=== PATIENT | male | born 1945 | race Caucasian/White ===

== ENCOUNTER 2016-09-26 13:14 | Inpatient (IN) ==
--- NOTE | 2016-09-26 13:36 | Emergency Department Note ---
Disposition Clinical Impression: Cancer associated pain, Altered mental status Disposition: Admitted As Inpatient Condition: Fair Altered Mental Status HPI - General Chief Complaint: ED Altered Mental Status Stated Complaint: AMS Time Seen by Provider: 09/26/16 13:35 Source: patient, EMS Limitations: altered mental status Nursing Notes Reviewed: Yes Vital Signs Reviewed: Yes - History of Present Illness HPI Narrative: Patient presents to the ED from the cancer center. Patient has a history of lung cancer that was metastatic to his right arm. It was diagnosed in June of this year. He has received weekly chemotherapy on since then. He is followed by oncology here. States that the pain started in his right forearm for several months before June. He eventually had a biopsy and was found to have lung cancer. Since receiving chemotherapy. They said that his disease is relatively stable. He is presenting now for 2 weeks of increasing weakness, which they believe is due to polypharmacy, but was also sent over to be admitted for pain control. The disruptive lesion and his right arm has caused a several pathologic fractures. He has significant pain and swelling and arm that is about his baseline. He has seen a surgeon at [facility], and they do plan on amputating the arm in the upcoming months. He has had some altered mental status, but this is not acute and has been ongoing last several weeks. Family reports that it is due to him taking oxycodone and gabapentin. When he is off these medications. He seems much more awake and alert but is unable to tolerate the pain and then when he takes a medicine. He seems very out of it. No fevers or other concerns at this time. Patient denies any pain other than in his right arm. States he just feels very weak and tired. - Related Data Home Medications Medication Instructions Recorded Confirmed Polyethylene Glycol 3350 [MiraLAX 1 scoop PO Q48H PRN 05/08/16 09/26/16 Powder Bulk 17.9 Oz] Acetaminophen [Tylenol] 325 mg PO Q4-6H PRN 09/26/16 09/26/16 Furosemide [Lasix] 20 mg PO DAILY PRN 09/26/16 09/26/16 Gabapentin [Neurontin] 800 mg PO TID 09/26/16 09/26/16 LORazepam [Ativan] 1 mg PO DAILY 09/26/16 09/26/16 Magnesium Oxide [Magnesium] 400 mg PO DAILY 09/26/16 09/26/16 Oxycodone HCl 15 mg PO Q4-6H PRN 09/26/16 09/26/16 Potassium Chloride [Klor-Con 10] 10 meq PO DAILY PRN 09/26/16 09/26/16 Sertraline [Zoloft] 50 mg PO QAM 09/26/16 09/26/16 Previous Rx's Medication Instructions Recorded Dexamethasone [Decadron] 8 mg PO AD #60 tab 05/21/16 Prochlorperazine Maleate 10 mg PO Q6HR PRN #60 tablet 05/21/16 [Compazine] Lidocaine/Prilocaine CREAM [Emla] 1 appl TP AD #1 tube 06/05/16 Calcium Carb/Vitamin D3/Vit K1 2 each PO DAILY #60 tab.chew 06/06/16 [Calcium + D Soft Chewable Tab] Allergies Allergy/AdvReac Type Severity Reaction Status Date / Time morphine AdvReac Confusion Verified 06/17/16 13:06 All systems ED: reviewed and negative except as stated. Constitutional: Reports: weakness Musculoskeletal: Reports: as per HPI Integumentary: Reports: as per HPI Neurological: Reports: as per HPI Endocrine: Reports: fatigue Past Medical History - Past Medical History Attestation: Yes The following information was validated with the patient. Source: patient, old records reviewed, obtained from family Medical history: Reports: arthritis, cancer, diabetes, hypertension, other Surgical history: Reports: cataract, other Psychiatric history: Reports: no psych history - Social History Smoking Status: Former smoker Smokeless Tobacco Status: No Alcohol use: Reports: none Drug use: Reports: none Physical Exam - General Limitations: altered mental status General appearance: alert, in no apparent distress - Head Head exam: atraumatic, normocephalic, normal inspection - Eye Eye exam: Present: normal appearance, PERRL, EOMI - ENT ENT exam: mucous membranes dry - Neck Neck exam: Absent: meningismus - Chest Chest inspection: Present: normal inspection, symmetric chest wall rise - Respiratory Respiratory exam: Present: normal lung sounds bilaterally. Absent: respiratory distress - Cardiovascular Cardiovascular exam: Present: regular rate, normal rhythm, normal heart sounds - Abdominal Exam Abdominal exam: Present: soft, Non-Tender - Extremities Exam Extremities exam: Present: other (Patient has significant edema, tenderness and swelling to the right forearm. States this is where his pathologic fracture is. No change from baseline) - Neurological Exam Neurological exam: Present: alert, oriented X3, CN II-XII intact - Psychiatric Psychiatric exam: Present: flat affect - Skin Skin exam: Present: warm, dry, intact Course Course Narrative: 70 y/o M presenting for weakness and fatigue. Labs ordered. Likely admission. As a cancer patient and was essentially sent over for admission for pain control and IV fluids Vital Signs Temperature 98.5 F 09/26/16 13:16 Pulse Rate 76 09/26/16 13:16 Respiratory Rate 22 09/26/16 13:16 Blood Pressure 107/71 09/26/16 13:16 O2 Sat by Pulse Oximetry 93 09/26/16 13:16 Temperature 98.0 F 09/26/16 19:05 Pulse Rate 81 09/26/16 19:05 Respiratory Rate 15 09/26/16 19:05 Blood Pressure 118/53 09/26/16 19:05 O2 Sat by Pulse Oximetry 98 09/26/16 19:05 Oxygen Delivery Oxygen Delivery Nasal Cannula Altered Mental Status - Medical Records Medical records reviewed: Yes I reviewed the patient's medical records. - Lab Data Lab results reviewed: Yes I reviewed the patient's lab results. Result diagrams: 09/26/16 14:04 09/26/16 14:04 Lab Results 09/26/16 09/26/16 09/26/16 Range/Units 14:04 14:04 14:04 WBC 3.7 L (4.3-11.1) K/mcL RBC 2.22 L (4.19-5.50) M/mcL Hgb 7.1 L (12.9-16.9) g/dL Hct 22.7 L (37.5-50.1) % MCV 102.3 H (83.0-100.0) fL MCH 32.0 (28.0-33.3) pg MCHC 31.3 L (31.6-35.5) g/dL RDW 19.6 H (11.5-14.5) % Plt Count 122 L (140-400) K/mcL MPV 9.7 (9.4-12.4) fL Seg Neutrophils % 83.0 % Band Neutrophils % 1.0 (0-4) % Lymphocytes % 12.0 % Monocytes % 4.0 % Neutrophils # 3.1 (1.6-8.9) K/mcL Lymphocytes # 0.4 L (0.6-4.6) K/mcL Monocytes # 0.2 (0.0-1.3) K/mcL Platelet Estimate Slight Decrease L (Normal) PT 12.8 H (9.4-12.1) Seconds INR 1.2 APTT 24.3 L (26.0-36.0) Seconds Sodium 138 (136-145) mEq/L Potassium 3.9 (3.5-4.5) mEq/L Chloride 102 (98-109) mEq/L Carbon Dioxide 30 H (19-29) mEq/L BUN 14 (8-26) mg/dL Creatinine 0.70 L (0.72-1.25) mg/dL Est GFR ( Amer) > 60 (> 60) Est GFR (Non-Af Amer) > 60 (> 60) BUN/Creatinine Ratio 20 (6-26) Glucose 78 (70-99) mg/dL Calculated Osmolality 285 (280-300) Calcium 9.2 (8.6-10.8) mg/dL Ionized Calcium (1.15-1.35) mmol/L Phosphorus (2.3-4.7) mg/dL Magnesium (1.6-2.6) mg/dL Total Bilirubin 0.6 (0.2-1.2) mg/dL Direct Bilirubin 0.3 (0.0-0.5) mg/dL Indirect Bilirubin 0.3 (0.0-1.2) mg/dL AST 15 (5-34) Units/L ALT 13 (0-55) Units/L Alkaline Phosphatase 122 (38-126) Units/L Troponin I (0-0.03) ng/mL Serum Total Protein 5.7 L (6.0-8.3) g/dL Albumin 2.1 L (3.5-5.0) g/dL Globulin 3.6 H (2.4-3.5) g/dL Albumin/Globulin Ratio 0.6 L (1.1-2.2) TSH (0.350-4.840) mcIU/mL Urine Color (Yellow) Urine Clarity (Clear) Urine pH (5.0-8.0) pH Units Ur Specific [place] (1.010-1.025) Urine Protein (Neg-Trace) mg/dL Urine Glucose (UA) (Normal) mg/dL Urine Ketones (Negative) mg/dL Urine Blood (Negative) Urine Nitrite (Negative) Urine Bilirubin (Negative) Urine Urobilinogen (Normal) mg/dL Ur Leukocyte Esterase (Negative) Ur Culture Indicated? (NO) 09/26/16 09/26/16 09/26/16 Range/Units 14:04 14:04 15:19 WBC (4.3-11.1) K/mcL RBC (4.19-5.50) M/mcL Hgb (12.9-16.9) g/dL Hct (37.5-50.1) % MCV (83.0-100.0) fL MCH (28.0-33.3) pg MCHC (31.6-35.5) g/dL RDW (11.5-14.5) % Plt Count (140-400) K/mcL MPV (9.4-12.4) fL Seg Neutrophils % % Band Neutrophils % (0-4) % Lymphocytes % % Monocytes % % Neutrophils # (1.6-8.9) K/mcL Lymphocytes # (0.6-4.6) K/mcL Monocytes # (0.0-1.3) K/mcL Platelet Estimate (Normal) PT (9.4-12.1) Seconds INR APTT (26.0-36.0) Seconds Sodium (136-145) mEq/L Potassium (3.5-4.5) mEq/L Chloride (98-109) mEq/L Carbon Dioxide (19-29) mEq/L BUN (8-26) mg/dL Creatinine (0.72-1.25) mg/dL Est GFR ( Amer) (> 60) Est GFR (Non-Af Amer) (> 60) BUN/Creatinine Ratio (6-26) Glucose (70-99) mg/dL Calculated Osmolality (280-300) Calcium (8.6-10.8) mg/dL Ionized Calcium 1.29 (1.15-1.35) mmol/L Phosphorus 3.2 (2.3-4.7) mg/dL Magnesium 1.7 (1.6-2.6) mg/dL Total Bilirubin (0.2-1.2) mg/dL Direct Bilirubin (0.0-0.5) mg/dL Indirect Bilirubin (0.0-1.2) mg/dL AST (5-34) Units/L ALT (0-55) Units/L Alkaline Phosphatase (38-126) Units/L Troponin I 0.01 (0-0.03) ng/mL Serum Total Protein (6.0-8.3) g/dL Albumin (3.5-5.0) g/dL Globulin (2.4-3.5) g/dL Albumin/Globulin Ratio (1.1-2.2) TSH 1.773 (0.350-4.840) mcIU/mL Urine Color Yellow (Yellow) Urine Clarity Clear (Clear) Urine pH 7.5 (5.0-8.0) pH Units Ur Specific [place] 1.018 (1.010-1.025) Urine Protein Negative (Neg-Trace) mg/dL Urine Glucose (UA) Normal (Normal) mg/dL Urine Ketones Negative (Negative) mg/dL Urine Blood Negative (Negative) Urine Nitrite Negative (Negative) Urine Bilirubin Negative (Negative) Urine Urobilinogen Normal (Normal) mg/dL Ur Leukocyte Esterase Negative (Negative) Ur Culture Indicated? NO (NO) - Radiology Data Radiology results reviewed: Yes I reviewed the patient's radiology results. - EKG Data EKG attestation: Yes I reviewed and interpreted this EKG. EKG results narrative: Sinus rhythm, rate 73, PA interval 136, QRS 93, QTc 388, normal axis, no acute ischemic changes TPA Checklist - LKW: 3-4.5 hrs Add. Contraindications Patient/family understanding: The patient/family members have been counseled and understood the risk, benefit , and alternatives of treatment.
[2016-09-26] MEDS ORDERED: 0.9 % Sodium Chloride 1,000 ML IVC ONE (13:53)
[2016-09-26] MEDS ORDERED: *HR* HYDROmorphone (PF) 1 MG/ML SYRINGE IVP ONE ×2 (13:55→16:25)
[2016-09-26 14:15] LABS: Hematocrit 22.7 % (37.5-50.1); Hemoglobin 7.1 g/dL (12.9-16.9); Mean Corpuscular HGB Conc 31.3 g/dL (31.6-35.5); Mean Corpuscular Volume 102.3 fL (83.0-100.0); Mean Platelet Volume 9.7 fL (9.4-12.4); Platelet Count 122 K/mcL (140-400); Red Blood Count 2.22 M/mcL (4.19-5.50); Red Cell Distribution Width 19.6 % (11.5-14.5)
[2016-09-26 14:25] LABS: INR 1.2; Prothrombin Time 12.8 Seconds (9.4-12.1)
--- NOTE | 2016-09-26 14:25 | Emergency Department Note ---
START Narrative - START START: I examined this patient and my medical decision-making was reviewed with the [employer]/PA/Advanced Practice Nurse/Resident Physician. I agree with the documented findings, disposition and treatment plan as described except to the extent set forth below. ED attending note: Patient seen with emergency medicine resident Dr. Gongora. Please see a copy of his note for details of the H&P, evaluation, management and disposition of this patient. We independently had [id number] contact with the patient Briefly: 70-year-old male being treated for metastatic lung cancer as a painful growing lesion that metastasized to his left forearm which were everted both the radius and ulna causing fracture is scheduled for surgical amputation and left upper extremity for pain control in the near future. Patient changes in mental status. Although he is awake and alert at this point, somewhat sleepy but non-somnolent. Head CT and lab work are pending. Admission anticipated. Disposition pending.
[2016-09-26 14:28] LABS: Activated Partial Thrombo Time 24.3 Seconds (26.0-36.0); Ionized Calcium 1.29 mmol/L (1.15-1.35); Magnesium 1.7 mg/dL (1.6-2.6); Phosphorous 3.2 mg/dL (2.3-4.7)
[2016-09-26 14:32] LABS: Alanine Aminotransferase 13 Units/L (0-55); Albumin 2.1 g/dL (3.5-5.0); Albumin/Globulin Ratio 0.6 (1.1-2.2); Alkaline Phosphatase 122 Units/L (38-126); Aspartate Amino Transferase 15 Units/L (5-34); BUN/Creatinine Ratio 20 (6-26); Bilirubin,Direct 0.3 mg/dL (0.0-0.5); Bilirubin,Indirect 0.3 mg/dL (0.0-1.2); Bilirubin,Total 0.6 mg/dL (0.2-1.2); Blood Urea Nitrogen 14 mg/dL (8-26); Calcium 9.2 mg/dL (8.6-10.8); Carbon Dioxide 30 mEq/L (19-29); Chloride 102 mEq/L (98-109); Globulin 3.6 g/dL (2.4-3.5); Glucose 78 mg/dL (70-99); Osmolality,Calculated 285 (280-300); Potassium 3.9 mEq/L (3.5-4.5); Sodium 138 mEq/L (136-145); Total Protein 5.7 g/dL (6.0-8.3); eGFR For African Americans > 60 (> 60); eGFR For Non-African Americans > 60 (> 60)
[2016-09-26 14:38] LABS: Lymphocytes # 0.4 K/mcL (0.6-4.6); Monocytes # 0.2 K/mcL (0.0-1.3); Neutrophils # 3.1 K/mcL (1.6-8.9); Platelet Estimate Slight Decrease (Normal)
[2016-09-26 14:52] LABS: Thyroid Stimulating Hormone 1.773 mcIU/mL (0.350-4.840)
[2016-09-26 15:33] LABS: Bilirubin,Urine Negative (Negative); Blood,Urine Negative (Negative); Clarity,Urine Clear (Clear); Color,Urine Yellow (Yellow); Glucose,Urine (UA) Normal (Normal); Ketones,Urine Negative (Negative); Leukocyte Esterase,Urine Negative (Negative); Nitrite,Urine Negative (Negative); PH,Urine 7.5 pH Units (5.0-8.0); Protein,Urine Negative (Neg-Trace); Specific Gravity,Urine 1.018 (1.010-1.025); Urobilinogen,Urine Normal (Normal)
[2016-09-26] MEDS ORDERED: Ondansetron 4 MG/2 ML VIAL IVP PRN (18:11)
[2016-09-26] MEDS ORDERED: Naloxone 0.4 MG/ML INJ IM ONE (18:18)
--- NOTE | 2016-09-26 18:29 | Oncology Inp Consult Note ---
Date of Encounter: 09/27/16 Time of Encounter: 18:26 Assessment and Plan (1) Cancer associated pain Status: Acute Assessment and plan: His pain is coming from the right upper extremity metastasis to the proximal radius. He was evaluated at [facility] on 09/17/2016- Dr. Fuentes. He recommended amputation of right upper extremity for pain control If necessary would consider orthopedic consult For pain control continue on Dilaudid pain pump He is on Neurontin 800 mg 3 times a day. 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 Completing cycle 6 of [address] chest with contrast 09/26/2016 showed a new 3 cm x 4 cm mass which is just above the cavitary mass and this is new since June 2016 cavitary masses stable at 3 cm. There is also a 2 cm right hilar lymph node which has developed since last scan Enlarging tissue metastasis right posterior paraspinal subcutaneous area 3 cm increased from 1.[address] abdomen and pelvis same time showed decrease in the right adrenal mass stable lytic lesion right iliac bone and right femur otherwise abdomen negative His next generation sequencing showed no actionable mutations. EGFR and ALK negative. He failed immune checkpoint inhibitor At this time will discuss with Dr. Auguste to see if he would be a candidate for palliative radiation to the right hilum and the paraspinal area (3) Anemia Status: Acute Assessment and plan: This may be contributing to some of the lethargy. His bone marrow reserve is low. He receivedd 2 units of packed RBC transfusion and hemoglobin improved to 8 range Qualifiers: Anemia type: unspecified type Qualified Code(s): D64.9 - Anemia, unspecified (4) Hypomagnesemia Status: Acute Assessment and plan: His magnesium continued to be low at 1.4. He has received magnesium sulfate 2 g IV the past. Magnesium improved to 1.7 on 09/26/2016 Also borderline low calcium not improving on oral supplement - Data of Consult Patient: known to practice within the last 3 years Requesting Physician: Tee Cowan MD Primary Care Provider: Sendy Mauro CNP - Consult Narrative History of present illness: Mr. Selby is a 70 year old male hospitalized with altered mental status worse in the last 2 weeks or so. He was admitted through emergency room. On 2016 urine analysis and noncontrast CT head negative Oncological histor stage IV squamous cell carcinoma lung origin diagnosis on 03/22/2016 by biopsy. CK 7 positive. CK 5/6 positive. P53 positive TTF-1 negative. CK 20 negative High PDL-1 expression more than 50% MRI of his right elbow on 03/14/2016 which demonstrated a mass in the right radius that demonstrated a mass involving the proximal radius with large soft tissue component measuring approximately 4.6 x 3.[address] chest 03/18/2016 followed by a PET scan showed right lung cavitary mass 7.1 x 5 cm SUV 7. Right hilar lymph node SUV 4. Right adrenal metastasis. Also bony metastasis PDL1 testing showed more than 50% expression port placed in his right chest wall Radiation Treatments Palliative radiation right radius 3000 cGy completed 04/08/2016 2000 cGy radiation to the rib cage and right hip/femur completed 05/30/2016 Chemotherapy 1. Pembrolizumab 200 milligram fixed dosing completed 05/01/2016 (2 cycles) CT chest 05/21/2016 mild increase in the cavitary lesion from 4.4 x 4 cm to 4.6 x 4.9 cm. Also increase in the soft tissue mass left first rib 3 x 2.2 cm from 1.1 x 0.9 cm new lytic lesion right proximal femur and medial right iliac bone area He also has psoriasis and psoriatic rash really got worse with Pembrolizumab. No arthritis 2. Carboplatin AUC 5 (460 mg) daily one, Abraxane 100 mg/m day 1 and 8 and 15 of every 21 days. Cycle one 05/29/2016 Grade 1-2 thrombocytopenia and neutropenia Reduced Abraxane to 80 mg/m dose of anemia and pancytopenia with also grade 1- 2 fatigue Cycle 6 of 6 chemotherapy started on 09/19/2016 and today is cycle 6 day 8 which he received before getting admitted Medical problem Anemia with hemoglobin between 7 and 8 Iron iron levels mildly low but ferritin high at 900. B12 f,olate normal CT chest Abdomen and pelvis on 07/01/2016 with contrast showed an reduction in right adrenal metastasis from 5.2 cm to 3.7 cm. Also reduction in the right lower lobe cavitary mass Prominent 1.8 cm nodule paraspinal right T11 area. Radiologist recommended MRI and this was discussed at thoracic tumor Board. That nodule is not that prominent. Patient is asymptomatic in that area. Consensus is to wait and repeat CAT scan rather than MRI. He has increasing pain in the right elbow with limitation of supination. This is worse in the last 2 days but going on for 2 weeks. Also swelling in the adenocarcinoma and forearm MRI elbow 08/07/2016 showed 5.2 x 3.1 x 4.1 cm mass not much changed since 12/2016 and at that time it was 4.8 x 3.5 x 4.2 cm There is some inflammation the periosteum. She was discussed at the tumor board and local nerve block is not an option evaluated by pain management and currently on Neurontin 800 mg 3 times a day which is not adequately controlling pain Past Med Surg Social Fam HX - Past Medical History Medical history: arthritis, cancer, diabetes, hypertension, other Psychiatric history: no psych history - Past Surgical History Surgical History: cataract, other - Social History Smoking Status: Former smoker Smokeless Tobacco Status: No Alcohol use: none Drug use: none Medications and Allergies Polyethylene Glycol 3350 [MiraLAX Powder Bulk 17.9 Oz] 1 scoop PO Q48H PRN 05/08 [History] Dexamethasone [Decadron] 8 mg PO AD #60 tab 05/21/16 [Rx] Prochlorperazine Maleate [Compazine] 10 mg PO Q6HR PRN #60 tablet 05/21/16 [Rx] Lidocaine/Prilocaine CREAM [Emla] 1 appl TP AD #1 tube 06/05/16 [Rx] Calcium Carb/Vitamin D3/Vit K1 [Calcium + D Soft Chewable Tab] 2 each PO DAILY # 60 tab.chew 06/06/16 [Rx] Acetaminophen [Tylenol] 325 mg PO Q4-6H PRN 09/26/16 [History] Furosemide [Lasix] 20 mg PO DAILY PRN 09/26/16 [History] Gabapentin [Neurontin] 800 mg PO TID 09/26/16 [History] LORazepam [Ativan] 1 mg PO DAILY 09/26/16 [History] Magnesium Oxide [Magnesium] 400 mg PO DAILY 09/26/16 [History] Oxycodone HCl 15 mg PO Q4-6H PRN 09/26/16 [History] Potassium Chloride [Klor-Con 10] 10 meq PO DAILY PRN 09/26/16 [History] Sertraline [Zoloft] 50 mg PO QAM 09/26/16 [History] Allergies morphine Adverse Reaction (Verified 06/17/16 13:06) Confusion Oncology - Exam - Constitutional Vitals: Temp Pulse Resp BP Pulse Ox 98.5 F 80 22 90/55 100 09/26/16 13:16 09/26/16 15:29 09/26/16 16:53 09/26/16 16:53 09/26/16 15:29 Consult Discharge Plan - Plan Referrals: Sendy Mauro, MATERNAL CHILD NURSE [Primary Care Provider] - 10/03/16 8:00 am
--- NOTE | 2016-09-26 18:31 | Internal Med History&Physical ---
<Urbano Goer - Last Filed: 09/26/16 19:32> Date of Encounter: 09/26/16 Time of Encounter: 18:00 Assessment and Plan (1) Altered mental status Current visit: Yes Status: Acute Assess: Patient exhibits severe altered mental status. Plan: .4 Narcan ordered for possible opiate overdose Blood culture ordered to r/o infection U/A ordered to r/o infection Consider CT of chest Consider CT of abdomen Qualifiers: Altered mental status type: somnolence Qualified Code(s): R40.0 - Somnolence (2) Cancer associated pain Current visit: Yes Status: Chronic Assess: Patient's caregiver and report patient experiencing pain that has worsened over last two weeks in right arm where cancer has metastasized to bone. [facility] plans on amputating right arm in one month after patient finishes chemotherapy and stabilizes. Plan: Oncology consult ordered (3) DVT prophylaxis Current visit: Yes Status: Acute Internal Medicine - H&P: HPI Chief complaint: Altered mental status Admitted From: Emergency Dept Plans for Post Hospital Care: Home History of present illness: Mr. Selby is a 70 year old male who presents from the ED with chief complaint of altered mental status. Patient's information taken from caregiver and due to patient being non-contributory. Patient is in stage IV lung cancer which has metastasized to multiple sites in his body. Patient currently has one more round of chemotherapy left in treatment. Patient has received radiation and chemotherapy. Cancer has also metastasized to his right arm which is erythematous, edematous, and painful. Patient's head CT shows no acute intracranial or mass. CXR shows acute airspace disease or enlargement of mass cannot be excluded. No pleural effusion or overt pulmonary edema. CT of chest may be recommended. Past Med Surg Social Fam HX - Past Medical History Medical history: arthritis, cancer, diabetes, hypertension, other Psychiatric history: no psych history - Past Surgical History Surgical History: cataract, other - Social History Smoking Status: Former smoker Smokeless Tobacco Status: No Alcohol use: none Drug use: none Occupational status: retired Current living situation: Home, With Family Recent Out of Country Travel Within the Last 8 Weeks: No Exposure or Possible Exposure to Illness During Travel: No Internal Medicine - H&P: Meds Polyethylene Glycol 3350 [MiraLAX Powder Bulk 17.9 Oz] 1 scoop PO Q48H PRN 05/08 [History] Dexamethasone [Decadron] 8 mg PO AD #60 tab 05/21/16 [Rx] Prochlorperazine Maleate [Compazine] 10 mg PO Q6HR PRN #60 tablet 05/21/16 [Rx] Lidocaine/Prilocaine CREAM [Emla] 1 appl TP AD #1 tube 06/05/16 [Rx] Calcium Carb/Vitamin D3/Vit K1 [Calcium + D Soft Chewable Tab] 2 each PO DAILY # 60 tab.chew 06/06/16 [Rx] Acetaminophen [Tylenol] 325 mg PO Q4-6H PRN 09/26/16 [History] Furosemide [Lasix] 20 mg PO DAILY PRN 09/26/16 [History] Gabapentin [Neurontin] 800 mg PO TID 09/26/16 [History] LORazepam [Ativan] 1 mg PO DAILY 09/26/16 [History] Magnesium Oxide [Magnesium] 400 mg PO DAILY 09/26/16 [History] Oxycodone HCl 15 mg PO Q4-6H PRN 09/26/16 [History] Potassium Chloride [Klor-Con 10] 10 meq PO DAILY PRN 09/26/16 [History] Sertraline [Zoloft] 50 mg PO QAM 09/26/16 [History] Allergies morphine Adverse Reaction (Verified 06/17/16 13:06) Confusion ROS unobtainable: due to mental status (Information taken from caregiver and .) All Systems PM: A 10-system review of systems was performed and is negative for pertinent findings except as documented above in the HPI. - Constitutional Constitutional: fatigue, lethargy, malaise, weakness - EENT Eyes: as per HPI Ears: as per HPI Nose, mouth and throat: as per HPI - Breasts Breasts: as per HPI - Cardiovascular Cardiovascular ROS IM: as per HPI - Respiratory Respiratory: as per HPI - Gastrointestinal Gastrointestinal: as per HPI - Genitourinary Genitourinary ROS male: as per HPI - Musculoskeletal Musculoskeletal ROS IM: as per HPI - Integumentary Integumentary IM: as per HPI, erythema, other (pitting edema of right arm and bilaterally in legs) - Neurological Neurological ROS: as per HPI, weakness - Psychiatric Psychiatric: abnormal sleep pattern - Endocrine Endocrine IM: as per HPI - Hematologic/Lymphatic Hematologic/Lymphatic: as per HPI - Allergic/Immunologic Allergic/Immunologic: as per HPI - Constitutional Vitals: Temp Pulse Resp BP Pulse Ox 98.5 F 80 22 90/55 100 09/26/16 13:16 09/26/16 15:29 09/26/16 16:53 09/26/16 16:53 09/26/16 15:29 General appearance: Present: mild distress Exam: Patient's exam limited due to altered mental status and pain from right arm. - Head Head exam: Present: atraumatic, normocephalic - Neck Neck exam general surgery: Present: supple, trachea midline - Respiratory Respiratory exam: Present: decreased breath sounds - Cardiovascular Cardiovascular exam: Present: RRR, +S1, +S2. Absent: diastolic murmur, gallop, rubs, systolic murmur - Rectal Rectal exam: Present: deferred - Additional comments: exam deferred. - Extremities Exam Additional comments: Bilateral pedal and lower leg edema 3+. Edema and erythema of right arm with pitting 2+. - Back Exam Additional comments: Not conducted d/t altered mental status. - Neurological Exam Neurological exam: Present: altered - Psychiatric Additional comments: Not able to assess due to altered mental status. - Skin Skin exam: Present: erythema, excoriation, warm Additional comments: Bilateral pedal and lower leg edema with discoloration. Edema and erythema of right arm. Internal Med - H&P Results - Labs CBC & Chem 7: 09/26/16 14:04 09/26/16 14:04 <Lona Boss - Last Filed: 09/26/16 21:09> Date of Encounter: 09/26/16 Internal Medicine - H&P: HPI History of present illness: Mr. Selby is a 70 year old male All Systems PM: A 10-system review of systems was performed and is negative for pertinent findings except as documented above in the HPI. - Constitutional Vitals: Temp Pulse Resp BP Pulse Ox 98.0 F 81 15 118/53 98 09/26/16 19:05 09/26/16 19:05 09/26/16 19:05 09/26/16 19:05 09/26/16 19:05 Internal Med - H&P Results - Labs CBC & Chem 7: 09/26/16 14:04 09/26/16 14:04 - Attending Attestation Patient seen and examined, agree with assessment and plan of HOUSING INSPECTOR. Patient with metastatic lung cancer with severe right arm pain secondary to metastatic disease. Patient was somnolent earlier, however on my exam he is grimacing in pain and able to speak with me in complete sentences. He received 2mg IV dilaudid in the ER and this is likely the cause of his earlier somnolence. Did not receive narcan and will only give if patient becomes obtunded. Will write for DISPATCH COORDINATOR pump of dilaudid to manage pain safely. Will give 2 units PRBCs based on oncology recommendations.
[2016-09-26] MEDS ORDERED: *HR* HYDROmorphone 20 MG/20 ML PCA IVC PRN (20:48)
[2016-09-26] MEDS: Gabapentin 400 MG CAPSULE PO SCH (21:40)
[2016-09-26] MEDS ORDERED: 0.9 % Sodium Chloride 1,000 ML ONE (22:42)
[2016-09-27] MEDS ORDERED: 0.9 % Sodium Chloride 250 ML ONE (02:50)
[2016-09-27 06:09] LABS: Alanine Aminotransferase 9 Units/L (0-55); Albumin/Globulin Ratio 0.6 (1.1-2.2); Alkaline Phosphatase 96 Units/L (38-126); Aspartate Amino Transferase 14 Units/L (5-34); BUN/Creatinine Ratio 20 (6-26); Bilirubin,Total 0.9 mg/dL (0.2-1.2); Blood Urea Nitrogen 12 mg/dL (8-26); Calcium 8.2 mg/dL (8.6-10.8); Carbon Dioxide 27 mEq/L (19-29); Chloride 105 mEq/L (98-109); Globulin 3.1 g/dL (2.4-3.5); Glucose 70 mg/dL (70-99); Osmolality,Calculated 282 (280-300); Potassium 4.1 mEq/L (3.5-4.5); Sodium 137 mEq/L (136-145); Total Protein 4.9 g/dL (6.0-8.3); eGFR For African Americans > 60 (> 60); eGFR For Non-African Americans > 60 (> 60)
[2016-09-27 06:14] LABS: Albumin 1.8 g/dL (3.5-5.0)
[2016-09-27 06:27] LABS: Hematocrit 24.2 % (37.5-50.1); Immature Granulocytes % 0.6 % (0-4); Immature Platelets 3.7 % (1.1-6.1); Lymphocytes # 0.5 K/mcL (0.6-4.6); Mean Corpuscular HGB Conc 33.1 g/dL (31.6-35.5); Mean Corpuscular Volume 93.8 fL (83.0-100.0); Mean Platelet Volume 10.1 fL (9.4-12.4); Monocytes # 0.5 K/mcL (0.0-1.3); Monocytes % 9.4 %; Neutrophils # 4.3 K/mcL (1.6-8.9); Platelet Count 117 K/mcL (140-400); Red Blood Count 2.58 M/mcL (4.19-5.50); Red Cell Distribution Width 22.3 % (11.5-14.5)
[2016-09-27 06:45] LABS: Anisocytosis 2+ (Not Present); Platelet Estimate Decreased (Normal)
[2016-09-27 06:47] LABS: Macrocytosis Present (Not Present)
[2016-09-27] MEDS: Gabapentin 400 MG CAPSULE PO SCH ×3 (09:39→21:59)
[2016-09-27] MEDS: *HR* LORazepam 1 MG TABLET PO SCH (09:40)
--- NOTE | 2016-09-27 09:54 | Internal Med Progress Note ---
Date of Encounter: 09/27/16 Time of Encounter: 09:44 - Assessment and plan (1) Altered mental status Current Visit: Yes Status: Resolved Assessment and plan: Resolved Possibly secondary to pain medications patient awake, alert, able to participate in conversation this morning Qualifiers: Altered mental status type: somnolence Qualified Code(s): R40.0 - Somnolence (2) Cancer associated pain Current Visit: Yes Status: Acute Assessment and plan: Acute on chronic, from the right upper extremity metastasis to the proximal radius. He was evaluated at [facility] on 09/17/2016- Dr. Fuentes. 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 Current Visit: Yes Status: Chronic Assessment and plan: Per Oncology, patient is responding to palliative chemo Onc consult appreciated Cbc is acceptable after transfusion Ensure DVT prophylaxis with heparin (4) Anemia Current Visit: Yes Status: Acute Assessment and plan: Symptomatic Possibly due to underlying malignancy and chemotherapy s/p 2 units RBC Hb stable Qualifiers: Anemia type: unspecified type Qualified Code(s): D64.9 - Anemia, unspecified (5) Hypotension Current Visit: Yes Status: Acute Assessment and plan: Possibly from anemia and medications Continue IVF and continue to monitor Qualifiers: Hypotension type: unspecified hypotension type Qualified Code(s): I95.9 - Hypotension, unspecified - Subjective Interval history: Initial encounter Evaluated at bedside, at the bedside Mr Selby is a 70 Y/O M with Stage IV Lung CA (with metastasis to R arm, R iliac bone, R femur, R adrenal mass, )with R arm bone mets and intractable pain, he is currently on palliative chemo, he was transferred to ER due to somnolence from pain medications Patient is still able to function at home per his , but has very poor quality of life due to his R arm pain patient and his state that the R arm is the only source of pain for the patient at this time and their wish is to proceed with an amputation of that arm as they have been counselled about this by orthopedic oncology at [facility] He otherwise denies any complains and states MARKETING OUTREACH COORDINATOR pump helped Patient states he does not want chest compressions or intubations should need arise His code status will be changed as appropriate He has been given 2 units RBC by admitting team - Constitutional Vitals: Temp Pulse Resp BP Pulse Ox 99.4 F 81 15 90/51 95 09/27/16 07:21 09/27/16 07:21 09/27/16 07:21 09/27/16 07:21 09/27/16 07:21 General appearance: Present: mild distress, A&O X 3, pleasant - Head Head exam: Present: atraumatic, normocephalic - Eye Eye exam: Present: PERRL, conjuntiva pink, sclera anicteric Pupils: Present: PERRL - ENT ENT exam: Present: mucous membranes moist - Neck Neck exam general surgery: Present: normal inspection - Respiratory Respiratory exam: Present: CTAB. Absent: rales, rhonchi, stridor, wheezes - Cardiovascular Cardiovascular exam: Present: RRR, +S1, +S2. Absent: systolic murmur, tachycardia - GI/Abdominal GI/Abdominal exam: Present: normal bowel sounds, soft, no peritoneal signs. Absent: mass, tenderness - Extremities Exam Additional comments: R arm swollen, red and tender to touch, no differential warmth Bilateral lower extremity edema noted, 1+, and pitting, pulses present - Neurological Exam Neurological exam: Present: alert, CN II-XII intact, oriented X3, no focal deficits. Absent: pronater drift, facial droop, speech deficit - Skin Skin exam: Present: dry, intact Internal Medicine: Result - Labs CBC & Chem 7: 09/27/16 06:20 09/27/16 05:04 Labs: Short CBC 09/27/16 Range/Units 06:20 WBC 5.4 (4.3-11.1) K/mcL Hgb 8.0 L (12.9-16.9) g/dL Hct 24.2 L (37.5-50.1) % Plt Count 117 L (140-400) K/mcL Neutrophils # 4.3 (1.6-8.9) K/mcL BMP 09/27/16 05:04 Sodium 137 Potassium 4.1 Chloride 105 Carbon Dioxide 27 BUN 12 Creatinine 0.60 L Glucose 70 Calcium 8.2 L Liver Function 09/27/16 Range/Units 05:04 Total Bilirubin 0.9 (0.2-1.2) mg/dL AST 14 (5-34) Units/L ALT 9 (0-55) Units/L Alkaline Phosphatase 96 (38-126) Units/L Albumin 1.8 L (3.5-5.0) g/dL - ABG Interpretation ABG results: PT/INR, D-dimer PT 12.8 Seconds (9.4-12.1) H 09/26/16 14:04 - Impressions Impressions Abdomen/Pelvis CT 09/27/16 08:00 IMPRESSION: 1. Marked interval decrease in size in the right adrenal gland mass, now with calcifications within the right adrenal gland, suggesting response to treatment. 2. Stable lytic lesions in the right iliac bone and right femur compatible with sites of metastatic disease. 3. No CT evidence for acute intra-abdominal process. 4. Stable nonobstructing right renal calculus. D/ / Sandro Morley / Sandro Morley Interpreting Provider: Sandro Morley Chest CT 09/27/16 08:00 IMPRESSION: New solid right infrahilar mass measuring 4 cm x 3 cm compatible with recurrent lung carcinoma. The adjacent cavitary lesion within the right lower lobe has slightly decreased in size measuring 3.0 x 3.2 cm. There is a new associated 2 cm right hilar lymph node. Enlarging soft tissue metastasis within the right posterior paraspinal deep subcutaneous tissues measuring 3 cm previously measuring 1.9 cm. Multiple hypodense lesions within the liver not significantly changed. Mild COPD. D/ / 09/27/2016 08:47:20 Jovani Barclay MD / quin Interpreting Provider: Jovani Barclay MD Consult Discharge Plan - Plan Referrals: Sendy Mauro, MICROBIOLOGICAL LAB TECHNICIAN [Primary Care Provider] - 10/03/16 8:00 am
[2016-09-27 13:28] LABS: Bilirubin,Urine Negative (Negative); Blood,Urine Negative (Negative); Clarity,Urine Clear (Clear); Color,Urine Yellow (Yellow); Glucose,Urine (UA) Normal (Normal); Ketones,Urine Trace mg/dL (Negative); Leukocyte Esterase,Urine Negative (Negative); Nitrite,Urine Negative (Negative); Protein,Urine Negative (Neg-Trace); Specific Gravity,Urine > 1.030 (1.010-1.025); Urobilinogen,Urine Normal (Normal)
[2016-09-27] MEDS ORDERED: *HR* Heparin 5,000 UNIT/ML VIAL SQ SCH (16:00)
--- NOTE | 2016-09-27 17:16 | Electrocardiograph Report ---
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
[2016-09-27] MEDS: 0.9 % Sodium Chloride 1,000 ML IVC SCH (17:23)
--- NOTE | 2016-09-27 22:07 | Orthopedic Consult Note ---
Date of Encounter: 09/27/16 Time of Encounter: 21:56 History of Present Illness Chief complaint: Right arm pain HPI: Mr. Selby is a 70 year old [id number] gentleman who has metastatic lung carcinoma. The patient has had pain in his arm since January of last year. The pain has gotten progressively worse. The pain was noted to be secondary to a compressive metastatic lesion in the soft tissues about the right proximal radius. The pain has been uncontrollable in spite of numerous medications. Patient has had previous radiation treatment to the arm without successful reduction of the tumor or pain relief. The patient had been seen up at [facility] by orthopedic oncologist who felt that the most viable option was a amputation. The patient apparently had been discussed at length at tumor Board and no pain management techniques were deemed adequate or appropriate for Mr. Finnegan's intractable pain. I have been asked to see the patient to offer him potential relief with the amputation at this time instead of waiting for a month or more for follow-up and surgery at [facility]. For complete history and physical data as well as multiple imaging studies please refer to the completed portion of the medical record. Pertinent orthopedic examination reveals the upper arm to be a relatively unremarkable until a point just above the antecubital fossa. There is lymphedema that gets progressively worse as 1 goes into the proximal and mid forearm. Fingers are dystrophic. Very brisk radial pulses noted. Patient has marked hypersensitivity to touch from the elbow distal. This appears to be mostly focused over the sensory branch of the radial nerve especially the distal forearm and thumb. Her laboratory data includes a hemoglobin of 8.0, normal white blood cell count of 5.4 and platelet count of 117. I reviewed x-rays completed recently. These show minor periosteal changes about the proximal radius. I reviewed an MRI from May of last year as well as one completed recently, he show a large metastatic lesion surrounding the radial head and proximal radius. There is some minor bony involvement. Impression: Intractable right arm pain secondary to metastatic lesion right proximal forearm. 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 Recommendation/treatment plan: At a very long discussion with the patient as well as his family about the diagnosis and treatment options available for him. They are very well educated about the process. They feel that the patient has had minimal relief with medications as well as radiation treatment. I discussed the possibility of a nerve ablation or other pain management techniques, they feel that these have not been predicted to be successful and his case and amputation had been suggested as a more definitive answer. I discussed the above elbow amputation at length with them. Discussed the procedure as well as potential risks and complications including but not limited to bleeding infection blood clots nerve injury or phantom pain and concerns of incomplete pain relief as well as concerns for healing due to previous radiation treatment. They understand and have requested that we proceed with a right above elbow amputation for palliative management of this intractable pain secondary to metastatic lung cancer. Informed consent has been obtained. I have scheduled him for surgery tomorrow. Thank you very much for allowing me to see and care for Mr. Selby. Sincerely, Jd Smith,DO Past Med Surg Social Fam HX - Past Medical History Medical history: arthritis, cancer, diabetes, hypertension, other Psychiatric history: no psych history - Past Surgical History Surgical History: cataract, other - Social History Smoking Status: Former smoker Smokeless Tobacco Status: No Alcohol use: none Drug use: none Medications and Allergies Polyethylene Glycol 3350 [MiraLAX Powder Bulk 17.9 Oz] 1 scoop PO Q48H PRN 05/08 [History] Dexamethasone [Decadron] 8 mg PO AD #60 tab 05/21/16 [Rx] Prochlorperazine Maleate [Compazine] 10 mg PO Q6HR PRN #60 tablet 05/21/16 [Rx] Lidocaine/Prilocaine CREAM [Emla] 1 appl TP AD #1 tube 06/05/16 [Rx] Calcium Carb/Vitamin D3/Vit K1 [Calcium + D Soft Chewable Tab] 2 each PO DAILY # 60 tab.chew 06/06/16 [Rx] Acetaminophen [Tylenol] 325 mg PO Q4-6H PRN 09/26/16 [History] Furosemide [Lasix] 20 mg PO DAILY PRN 09/26/16 [History] Gabapentin [Neurontin] 800 mg PO TID 09/26/16 [History] LORazepam [Ativan] 1 mg PO DAILY 09/26/16 [History] Magnesium Oxide [Magnesium] 400 mg PO DAILY 09/26/16 [History] Oxycodone HCl 15 mg PO Q4-6H PRN 09/26/16 [History] Potassium Chloride [Klor-Con 10] 10 meq PO DAILY PRN 09/26/16 [History] Sertraline [Zoloft] 50 mg PO QAM 09/26/16 [History] Allergies morphine Adverse Reaction (Verified 06/17/16 13:06) Confusion All Systems Reviewed: A 10-system review of systems was performed and is negative for pertinent findings except as documented above in the HPI. Physical Exam - Constitutional Vitals: Temp Pulse Resp BP Pulse Ox 100.2 F H 92 18 94/53 93 09/27/16 21:02 09/27/16 21:02 09/27/16 21:02 09/27/16 21:02 09/27/16 21:02 Results - Labs Result Diagrams: 09/27/16 06:20 09/27/16 05:04 Labs: Abnormal lab results RBC 2.58 M/mcL (4.19-5.50) L 09/27/16 06:20 Hgb 8.0 g/dL (12.9-16.9) L 09/27/16 06:20 Hct 24.2 % (37.5-50.1) L 09/27/16 06:20 RDW 22.3 % (11.5-14.5) H 09/27/16 06:20 Plt Count 117 K/mcL (140-400) L 09/27/16 06:20 Lymphocytes # 0.5 K/mcL (0.6-4.6) L 09/27/16 06:20 Platelet Estimate Decreased (Normal) L 09/27/16 06:20 Anisocytosis 2+ (Not Present) A 09/27/16 06:20 Macrocytosis Present (Not Present) A 09/27/16 06:20 PT 12.8 Seconds (9.4-12.1) H 09/26/16 14:04 APTT 24.3 Seconds (26.0-36.0) L 09/26/16 14:04 Creatinine 0.60 mg/dL (0.72-1.25) L 09/27/16 05:04 Calcium 8.2 mg/dL (8.6-10.8) L 09/27/16 05:04 Serum Total Protein 4.9 g/dL (6.0-8.3) L 09/27/16 05:04 Albumin 1.8 g/dL (3.5-5.0) L 09/27/16 05:04 Albumin/Globulin Ratio 0.6 (1.1-2.2) L 09/27/16 05:04 Ur Specific [place] > 1.030 (1.010-1.025) H 09/27/16 13:00 Urine Ketones Trace mg/dL (Negative) H 09/27/16 13:00 All other labs normal. - Diagnostic results Elbow x-ray: image reviewed Elbow MRI: image reviewed Consult Discharge Plan - Plan Referrals: Sendy Mauro CNP [Primary Care Provider] - 10/03/16 8:00 am
[2016-09-28] MEDS ORDERED: *HR* LORazepam 1 MG TABLET PO ONE (00:37)
[2016-09-28] MEDS: 0.9 % Sodium Chloride 1,000 ML IVC SCH ×3 (02:41→23:30)
[2016-09-28 04:52] LABS: Basophils % 0.2 %; Hematocrit 24.6 % (37.5-50.1); Immature Granulocytes % 0.5 % (0-4); Lymphocytes # 0.4 K/mcL (0.6-4.6); Lymphocytes % 8.3 %; Mean Corpuscular HGB Conc 32.5 g/dL (31.6-35.5); Mean Corpuscular Hemoglobin 30.9 pg (28.0-33.3); Mean Platelet Volume 10.7 fL (9.4-12.4); Monocytes # 0.4 K/mcL (0.0-1.3); Monocytes % 9.5 %; Neutrophils # 3.4 K/mcL (1.6-8.9); Red Blood Count 2.59 M/mcL (4.19-5.50); Red Cell Distribution Width 22.3 % (11.5-14.5); Segmented Neutrophils % 81.5 %
[2016-09-28 04:53] LABS: Platelet Count 82 K/mcL (140-400)
[2016-09-28 05:07] LABS: BUN/Creatinine Ratio 15 (6-26); Blood Urea Nitrogen 8 mg/dL (8-26); Calcium 7.6 mg/dL (8.6-10.8); Carbon Dioxide 26 mEq/L (19-29); Chloride 107 mEq/L (98-109); Glucose 74 mg/dL (70-99); Osmolality,Calculated 287 (280-300); Potassium 3.3 mEq/L (3.5-4.5); Sodium 140 mEq/L (136-145); eGFR For African Americans > 60 (> 60); eGFR For Non-African Americans > 60 (> 60)
[2016-09-28] MEDS ORDERED: Bupivacaine/EPI 1:200k 0.5%PF 10 ML VIAL ONE (07:18)
--- NOTE | 2016-09-28 07:24 | Anesthesia Evaluation PreOp ---
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) Other Medical History: Diabetes Type II, Other (Arthritis) Anesthesia History: No Prior Anesthetic Complications Alcohol Use: none Drug use: none Medications and Allergies Polyethylene Glycol 3350 [MiraLAX Powder Bulk 17.9 Oz] 1 scoop PO Q48H PRN 05/08 [History] Dexamethasone [Decadron] 8 mg PO AD #60 tab 05/21/16 [Rx] Prochlorperazine Maleate [Compazine] 10 mg PO Q6HR PRN #60 tablet 05/21/16 [Rx] Lidocaine/Prilocaine CREAM [Emla] 1 appl TP AD #1 tube 06/05/16 [Rx] Calcium Carb/Vitamin D3/Vit K1 [Calcium + D Soft Chewable Tab] 2 each PO DAILY # 60 tab.chew 06/06/16 [Rx] Acetaminophen [Tylenol] 325 mg PO Q4-6H PRN 09/26/16 [History] Furosemide [Lasix] 20 mg PO DAILY PRN 09/26/16 [History] Gabapentin [Neurontin] 800 mg PO TID 09/26/16 [History] LORazepam [Ativan] 1 mg PO DAILY 09/26/16 [History] Magnesium Oxide [Magnesium] 400 mg PO DAILY 09/26/16 [History] Oxycodone HCl 15 mg PO Q4-6H PRN 09/26/16 [History] Potassium Chloride [Klor-Con 10] 10 meq PO DAILY PRN 09/26/16 [History] Sertraline [Zoloft] 50 mg PO QAM 09/26/16 [History] Allergies morphine Adverse Reaction (Verified 06/17/16 13:06) Confusion - Meds/Allergy Pre-op Review Medications Reviewed: Yes Allergies Reviewed: Yes Beta Blockers on Current Med List: No Anesthesia Results - Labs 09/28/16 04:15 09/28/16 04:15 Laboratory Tests 09/26/16 09/28/16 09/28/16 14:04 04:15 04:15 Hgb 8.0 L Plt Count 82 L PT 12.8 H INR 1.2 APTT 24.3 L Sodium 140 Potassium 3.3 L BUN 8 Creatinine 0.55 L - Imaging EKG: report reviewed (SR) Anesthesia Exam Vital Signs/O2 Sat/Glucose, Most Current Temp Pulse Resp BP Pulse Ox 09/28/16 04:31 98.6 F 83 18 108/54 94 Height: 5'8 Weight: 132 lbs NPO (# of Hours): MN Pain Scale: 5 - HEENT Pupil (Motor): Pupils equal, EOMI Mallampati: II Oral Opening: Greater than 3 - COATING SUPERVISOR LOC: Oriented COATING SUPERVISOR Motor: Normal RUE, Normal LUE, Normal RLE, Normal LLE, Normal Face COATING SUPERVISOR Sensory: Normal: RUE, LUE, RLE, LLE, Face - Cardiac Rhythm: Regular Murmur: None JVD: No Carotid Bruit: No - Pulmonary Breath Sounds: bilateral Clear Respiratory Effort: Symmetrical Anesthesia Assess/Plan ASA Score: 3 (HTN Anemia of Chronic Disease DM) Modified [place] Scale for Level of Consciousness: Cooperative, oriented, and tranquil Anesthetic Plan: General, Regional, MAC Monitoring Plan: Standard Monitors Recovery Plan: PACU (Discussed GA and RA, possible MAC, agrees to proceed)
[2016-09-28] MEDS ORDERED: *HR* FentaNYL (PF) 100 MCG/2 ML VIAL ONE ×2 (07:46→08:44)
[2016-09-28] MEDS ORDERED: *HR* Midazolam HCl 2 MG/2 ML VIAL ONE (07:47)
[2016-09-28] MEDS ORDERED: *HR* Propofol 200 MG/20 ML VIAL IVP ONE (07:47)
[2016-09-28] MEDS ORDERED: Bupivacaine-MPF 0.25% 10 ML VIAL ONE (07:47)
[2016-09-28] MEDS ORDERED: Lidocaine -MPF 4% 5 ML AMPUL ONE (07:47)
[2016-09-28] MEDS ORDERED: *HR* Succinylcholine 200 MG/10 ML VIAL IVP ONE (07:47)
[2016-09-28] MEDS ORDERED: Tetracaine/PF 20 MG/2 ML AMPUL ONE (07:56)
[2016-09-28] MEDS ORDERED: ROPIVACAINE HCL/PF 0.5% 30 ML VIAL ONE ×2 (07:56→19:47)
[2016-09-28] MEDS ORDERED: ceFAZolin 2,000 MG in D5% in Water 100 ML IVPB ONE (08:09)
[2016-09-28] MEDS ORDERED: Lidocaine -MPF 2% 2 ML VIAL ONE (08:26)
[2016-09-28] MEDS ORDERED: *HR* Phenylephrine 10 MG/ML VIAL ONE (08:44)
[2016-09-28] MEDS ORDERED: EPHEDrine 50 MG/ML VIAL ONE (08:58)
[2016-09-28] MEDS ORDERED: Magnesium Oxide 400 MG TABLET PO SCH (09:00)
[2016-09-28] MEDS ORDERED: Acetaminophen IV 1,000 MG/100 ML INFUS..BTL ONE (09:00)
[2016-09-28] MEDS ORDERED: Sennosides/Docusate Sodium TABLET PO SCH (09:00)
[2016-09-28] MEDS ORDERED: Ondansetron 4 MG/2 ML VIAL ONE (09:21)
[2016-09-28] MEDS ORDERED: Ringers Solution, Lactated 1,000 ML IVC SCH (09:45)
--- NOTE | 2016-09-28 10:15 | Oncology Inp Progress Note ---
Date of Encounter: 09/28/16 Time of Encounter: 10:13 (1) Altered mental status Current Visit: Yes Status: Resolved Assessment and plan: Most likely secondary to his pain medication. Has resolved. Qualifiers: Altered mental status type: somnolence Qualified Code(s): R40.0 - Somnolence (2) Cancer associated pain Current Visit: Yes Status: Acute Assessment and plan: Patient with intractable right arm pain secondary to metastatic lesion in the right proximal forearm. He he has had no relief from radiation therapy or chemotherapy. He was seen at [facility] and amputation was recommended. Ortho saw him in house and plan to perform defecation during this hospitalization. 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 He is status post treatment with immunotherapy and carboplatin/ Abraxane. Recent CT scan with contrast on 09/26/2016 showed a new 3 cm x 4 cm mass which is just above the cavitary mass and this is new since June 2016 cavitary masses stable at 3 cm. There is also a 2 cm right hilar lymph node which has developed since last scan. Treatment to be continued as an outpatient. (4) Anemia Current Visit: Yes Status: Acute Assessment and plan: Multi-factorial. Chemotherapy-induced. Please transfuse for hemoglobin less than 8. Qualifiers: Anemia type: unspecified type Qualified Code(s): D64.9 - Anemia, unspecified - Constitutional Vitals: Vital Signs Temp Pulse Resp BP Pulse Ox 09/28/16 08:03 78 17 107/67 98 09/28/16 04:31 98.6 F 83 18 108/54 94 09/27/16 21:02 100.2 F H 92 18 94/53 93 09/27/16 16:09 97.9 F 83 12 96/56 97 Intake and Output 09/27/16 09/28/16 09/28/16 23:59 07:59 15:59 Intake Total 0 / 0 1000 / 1000 1100 / 1100 Output Total 350 / 350 Balance 0 / 0 650 / 650 1100 / 1100 Intake: IV Fluids 1000 / 1000 1100 / 1100 0.9 % Sodium Chloride 1, 1000 / 1000 1000 / 1000 000 ML @ 100 mls/hr IVC . Q10H TIERA Rx#:[id number] Ancef 2,000 MG In 100 / 100 Dextrose 5% 100 ML @ 200 mls/hr IVPB PREOP ONE Rx# :[id number] Oral 0 / 0 0 / 0 Output: Urine 350 / 350 Other: Meal Lunch NPO Percent of Meal Consumed 25% # Voids 4 # Bowel Movements 2 Weight 60.11 kg Patient Weight 09/28/16 23:59 Weight 60.11 kg Oncology: Obj Data - Labs CBC & Chem 7: 09/28/16 04:15 09/28/16 04:15 Labs: Laboratory Results - last 24 hr 09/28/16 09/28/16 04:15 04:15 WBC 4.2 L RBC 2.59 L Hgb 8.0 L Hct 24.6 L MCV 95.0 MCH 30.9 MCHC 32.5 RDW 22.3 H Plt Count 82 L MPV 10.7 Immature Gran % 0.5 Seg Neutrophils % 81.5 Lymphocytes % 8.3 Monocytes % 9.5 Eosinophils % 0.0 Basophils % 0.2 Neutrophils # 3.4 Lymphocytes # 0.4 L Monocytes # 0.4 Eosinophils # 0.0 Basophils # 0.0 Sodium 140 Potassium 3.3 L Chloride 107 Carbon Dioxide 26 BUN 8 Creatinine 0.55 L Est GFR ( Amer) > 60 Est GFR (Non-Af Amer) > 60 BUN/Creatinine Ratio 15 Glucose 74 Calculated Osmolality 287 Calcium 7.6 L - ABG Interpretation ABG results: PT/INR, D-dimer PT 12.8 Seconds (9.4-12.1) H 09/26/16 14:04 Consult Discharge Plan - Plan Referrals: Sendy Mauro CNP [Primary Care Provider] - 10/03/16 8:00 am
[2016-09-28] MEDS: *HR* LORazepam 1 MG TABLET PO SCH (10:17)
[2016-09-28] MEDS: Gabapentin 400 MG CAPSULE PO SCH ×3 (10:17→22:44)
--- NOTE | 2016-09-28 10:41 | Anesthesia Procedures ---
Date of Encounter: 09/28/16 Time of Encounter: 07:30 Procedures: Anesthesia - Nerve Block Procedure Date: 09/28/16 Time: 08:00 Pre-op Diagnosis: Right UE Pain Bone Metastasis Surgical Procedure: Amputation UE Checklist: Correct Patient Identifier Correct side: Right Blood Thinner: No Monitor Applied: EKG, BP, Pulse Oximetry Supplemental Oxygen via Nasal Cannula (L/min): 2 Sedation: Versed (mg): 2 Sedation: Fentanyl (mcg): 100 Indication: Post Op Analgesia Pre-op Neuro Deficits: No Block Type: Supraclavicular Catheter placed: No Depth at skin (cm): 2 Sterile Technique: Yes Ultrasound used: Yes Anatomy identified: Yes Visual spread of Local: Yes Neuro Stimulation: No Blood on Needle Aspiration: No Smooth Injection of Local: Yes Pain with Injection of Local: No Prep: Chlorhexadine Needle: 22 x 50 mm Stimuplex Local: Tetracaine (40), Ropivacaine (0.5%) Volume (cc): 30 Number of Attempts: 1 Complications: None/effective block Vitals: Vital Signs/O2 Sat/Glucose, Most Current Pulse Resp BP Pulse Ox 09/28/16 08:03 78 17 107/67 98
--- NOTE | 2016-09-28 11:17 | Anesthesia Evaluation Post Op ---
Date of Encounter: 09/28/16 Time of Encounter: 11:20 - Vital Signs Vital Signs: Vital Signs/O2 Sat/Glucose, Most Current Temp Pulse Resp BP Pulse Ox 09/28/16 11:10 111 22 89/62 98 09/28/16 11:00 99.7 F H 111 24 126/49 98 09/28/16 08:03 78 17 107/67 98 - Lungs Lungs: Clear Ascult./Percussion - Airway Airway: Non-obstructed - Cardiovascular Baseline Rhythm - Mental Status Mental Status: Alert & Oriented, Answers Appropriately - Pain Pain Scale: 0 - Nausea Vomiting Nausea Vomiting: Not Present - Hydration Hydration: Ice chips - Discharge PostOp Status: Transfer Patient to floor
--- NOTE | 2016-09-28 11:28 | Operative Note ---
Date of procedure: 09/28/16 Pre-op diagnosis: Intractable pain right arm secondary to metastatic lesion to right forearm Post-op diagnosis: same Procedure: Right above elbow amputation Implants: None Complications: None Anesthesia: MAHIN, regional Surgeon: Jd Smith Estimated blood loss (cc): 400 Tourniquet Time (Minutes): 100 Specimen: Right arm Condition: stable Disposition: PACU Procedure in Detail: Gross findings: Massive edema about the right arm from the elbow distal with a significant amount in the distal arm as well. Hand showed neuropathic-type changes. MRI revealed a very large metastatic lung carcinoma lesion in the right forearm surrounding the proximal radius. Patient had intractable pain and amputation was deemed the most appropriate treatment for pain management. Procedure is palliative and not diagnostic nor therapeutic for his carcinoma. Intraoperative findings included massive edema in the subcutaneous tissues with the tremendous vascularity. An above elbow amputation was performed probably with the bone cut about 6-8 cm above the articular surface of the humerus. Bone quality was good. There did not appear to be any gross evidence of metastatic disease or infection. Procedure: Patient had a supraclavicular nerve block administered by anesthesia in the preoperative area. Patient was then taken to the operating room at which time a general anesthesia was administered. Patient was then transferred to the operating room table. Right upper extremity was now tapped and draped in normal standard fashion for surgery. An Esmarch was wrapped around the upper arm just below the axilla acting as a tourniquet. Skin was then cut anteriorly just above the antecubital fossa. Tremendous vascularity as well as tremendous amount of edema fluid was encountered. Incision was then carried medial and lateral distally and then now transverse flap posteriorly was created. The dissection was carried to the subcutaneous tissue with large vessels divided between hemostats and and secured with of Vicryl stick tie. Dissection was then carried into the muscle bellies proper. Biceps was isolated and divided. Brachialis and brachial radialis were divided within their substance. Nerves were identified and divided between Cherie clamps. Vascular structures were divided between hemostats for later like picture with 2-0 Vicryl stick tie. The humerus was cleared in a circumferential manner and then divided up probably about 4 cm of both the joint surface. The extremity was then removed from the operative field. At this time on was evaluated. Hemostasis was controlled with a combination of electrocautery spray thrombin and suture ligature as noted. Initial evaluation revealed that soft tissue bulk was going to be too much therefore the humerus was recut about 3-4 cm above the previous cut. The canal of the humerus was packed with bone wax. At this time wounds were covered she irrigated. Final hemostasis was maintained. The isolated nerves were then placed on traction and then each sharply divided with a single swipe of a fresh scalpel blade. Nerves were allowed to retract into the soft tissues. The tricep and bicep were then removed sutured together over top of the distal humerus. This was performed with multiple #1 Vicryl. The flaps were developed as far as needed and then the anterior posterior flaps were secured initially with several inverted interrupted #1 Vicryl followed by multiple inverted interrupted 2-0 undyed Vicryl. This is followed by skin approximation with stainless steel clips. Persistent edema was noted within the skin and subcutaneous tissues. There was no significant tension on the wound. Sterile dressings consisting of bacitracin Adaptic 4 x 4's ABDs and Kerlix were now applied and secured with silk tape. Patient was then transferred from the operating room table to the hospital bed and awakened from anesthesia and then transported to the postanesthesia care unit in stable and satisfactory condition. All sponge and needle and sponge counts are correct. The right upper extremity including the distal humerus was sent for pathology.
--- NOTE | 2016-09-28 11:48 | Internal Med Progress Note ---
Date of Encounter: 09/28/16 Time of Encounter: 11:48 - Assessment and plan (1) Altered mental status Current Visit: Yes Status: Resolved Assessment and plan: Resolved Possibly secondary to pain medications patient awake, alert, able to participate in conversation this morning Qualifiers: Altered mental status type: somnolence Qualified Code(s): R40.0 - Somnolence (2) Cancer associated pain Current Visit: Yes Status: Acute Assessment and plan: Acute on chronic, from the right upper extremity metastasis to the proximal radius. He was evaluated at [facility] on 09/17/2016- Dr. Fuentes. He recommended amputation of right upper extremity for pain control s/p R arm above elbow amputation Continue Dilaudid PHY THERAPIST (3) Squamous cell carcinoma of left lung Current Visit: Yes Status: Chronic Assessment and plan: Per Oncology, patient is responding to palliative chemo Onc consult appreciated Cbc is acceptable after transfusion Ensure DVT prophylaxis with heparin (4) Anemia Current Visit: Yes Status: Acute Assessment and plan: Symptomatic Possibly due to underlying malignancy and chemotherapy s/p 3 units RBC Hb stable Qualifiers: Anemia type: unspecified type Qualified Code(s): D64.9 - Anemia, unspecified (5) Hypotension Current Visit: Yes Status: Acute Assessment and plan: Possibly from anemia and medications Continue IVF and continue to monitor Qualifiers: Hypotension type: unspecified hypotension type Qualified Code(s): I95.9 - Hypotension, unspecified (6) Fever Current Visit: Yes Status: Acute Assessment and plan: Chart review reveals patient had 2 episodes of low-grade fever and tachycardia His admitting blood culture was negative UA is negative for infection X2 CXR done stat this a.m post-op is negative Repeat blood culture has been sent Will monitor Will not start antibiotics for now as we have no source at this time Qualifiers: Fever type: unspecified Qualified Code(s): R50.9 - Fever, unspecified - Subjective Interval history: Evaluated at bedside, at the bedside Immediate post-op Mr Selby is a 70 Y/O M with Stage IV Lung CA (with metastasis to R arm, R iliac bone, R femur, R adrenal mass, )with R arm bone mets and intractable pain, he is currently on palliative chemo, he was transferred to ER due to somnolence from pain medications He has just had above elbow R arm amputation, he had a spinal block hence complaining of numbness He also started complaining of pain in his back from the paraspinal metastatic lesions Chart review reveals patient had 2 episodes of low-grade fever and tachycardia His admitting blood culture was negative UA is negative for infection X2 CXR done stat this a.m post-op is negative Repeat blood culture has been sent - Constitutional Vitals: Temp Pulse Resp BP Pulse Ox 100.2 F H 105 20 103/53 98 09/28/16 11:30 09/28/16 11:30 09/28/16 11:30 09/28/16 11:30 09/28/16 11:30 General appearance: Present: mild distress, A&O X 3, pleasant - Head Head exam: Present: atraumatic, normocephalic - Eye Eye exam: Present: PERRL, conjuntiva pink, sclera anicteric Pupils: Present: PERRL - Neck Neck exam general surgery: Present: supple, trachea midline. Absent: lymphadenopathy - Respiratory Respiratory exam: Present: CTAB. Absent: accessory muscle use, rales, rhonchi, wheezes - Cardiovascular Cardiovascular exam: Present: RRR, +S1, +S2. Absent: diastolic murmur, gallop, rubs, systolic murmur - GI/Abdominal GI/Abdominal exam: Present: normal bowel sounds, soft, no peritoneal signs. Absent: distended, tenderness - Extremities Exam Extremities exam: Present: warm, radial pulses palpable and symetrical. Absent : calf tenderness, cyanotic, pedal edema Additional comments: R arm dressing clean and dry - Back Exam Back exam: Present: paraspinal tenderness Additional comments: R paraspinal mass - Neurological Exam Neurological exam: Present: alert, CN II-XII intact, oriented X3, no focal deficits. Absent: pronater drift, facial droop, speech deficit - Skin Skin exam: Present: dry, intact Internal Medicine: Result - Labs CBC & Chem 7: 09/28/16 04:15 09/28/16 04:15 Labs: Short CBC 09/28/16 Range/Units 04:15 WBC 4.2 L (4.3-11.1) K/mcL Hgb 8.0 L (12.9-16.9) g/dL Hct 24.6 L (37.5-50.1) % Plt Count 82 L (140-400) K/mcL Neutrophils # 3.4 (1.6-8.9) K/mcL BMP 09/28/16 04:15 Sodium 140 Potassium 3.3 L Chloride 107 Carbon Dioxide 26 BUN 8 Creatinine 0.55 L Glucose 74 Calcium 7.6 L - ABG Interpretation ABG results: PT/INR, D-dimer PT 12.8 Seconds (9.4-12.1) H 09/26/16 14:04 Consult Discharge Plan - Plan Referrals: Sendy Mauro, JODI [Primary Care Provider] - 10/03/16 8:00 am
[2016-09-28] MEDS ORDERED: *HR* HYDROmorphone 20 MG/20 ML PCA IVC PRN ×2 (11:55→20:45)
[2016-09-28] MEDS ORDERED: Ondansetron 4 MG/2 ML VIAL IVP PRN (11:55)
[2016-09-28] MEDS ORDERED: *HR* HYDROmorphone (PF) 1 MG/ML SYRINGE IVP ONE ×2 (12:16→16:51)
[2016-09-28 17:37] LABS: Basophils % 0.2 %; Hematocrit 24.3 % (37.5-50.1); Hemoglobin 7.8 g/dL (12.9-16.9); Immature Granulocytes % 0.4 % (0-4); Immature Platelets 3.8 % (1.1-6.1); Lymphocytes # 0.4 K/mcL (0.6-4.6); Lymphocytes % 8.1 %; Mean Corpuscular HGB Conc 32.1 g/dL (31.6-35.5); Mean Corpuscular Hemoglobin 30.6 pg (28.0-33.3); Mean Corpuscular Volume 95.3 fL (83.0-100.0); Mean Platelet Volume 10.5 fL (9.4-12.4); Monocytes # 0.4 K/mcL (0.0-1.3); Monocytes % 8.3 %; Neutrophils # 4.1 K/mcL (1.6-8.9); Red Blood Count 2.55 M/mcL (4.19-5.50)
[2016-09-28 17:39] LABS: Platelet Count 88 K/mcL (140-400)
[2016-09-28] MEDS ORDERED: *HR* LORazepam 2 MG/ML VIAL IVP ONE (19:00)
[2016-09-28] MEDS ORDERED: *HR* LORazepam 2 MG/ML VIAL ONE (19:06)
[2016-09-28] MEDS: ceFAZolin 2,000 MG in D5% in Water 100 ML IVPB SCH (19:10)
[2016-09-28] MEDS ORDERED: Ketamine *HR* 500 MG/10 ML MDV ONE (19:47)
--- NOTE | 2016-09-28 20:26 | Anesthesia Procedures ---
Date of Encounter: 09/28/16 Time of Encounter: 20:23 Procedures: Anesthesia - Nerve Block Procedure Date: 09/28/16 Time: 20:24 Allergies/Adv Reactions: morphine Pre-op Diagnosis: R UE phamtom limb pain Surgical Procedure: R UE pain Checklist: Correct Patient Identifier, Correct procedure, History checked Correct side: Right Blood Thinner: Yes Monitor Applied: EKG, BP, Pulse Oximetry Indication: Primary Anesthesia Block Type: Supraclavicular Sterile Technique: Yes Ultrasound used: Yes Anatomy identified: Yes Visual spread of Local: Yes Neuro Stimulation: Yes Nerve Stimulator Range: 0.2 - 0.4 mA Blood on Needle Aspiration: No Smooth Injection of Local: Yes Pain with Injection of Local: No Prep: Chlorhexadine Local: Ropivacaine (0.5%) Volume (cc): 30 Number of Attempts: 1 Complications: None/effective block Comments: ketamine 25 mg administered for sedation
[2016-09-28] MEDS ORDERED: Naloxone 0.4 MG/ML INJ IVP PRN (20:45)
[2016-09-29] MEDS: ceFAZolin 2,000 MG in D5% in Water 100 ML IVPB SCH (00:23)
[2016-09-29] MEDS: *HR* HYDROmorphone 20 MG/20 ML PCA IVC PRN ×3 (04:21→21:38)
[2016-09-29 05:01] LABS: Immature Granulocytes % 0.5 % (0-4); Mean Corpuscular Volume 94.8 fL (83.0-100.0); Mean Platelet Volume 10.4 fL (9.4-12.4)
[2016-09-29 05:04] LABS: Basophils % 0.3 %; Hemoglobin 6.3 g/dL (12.9-16.9); Immature Platelets 3.7 % (1.1-6.1); Lymphocytes # 0.4 K/mcL (0.6-4.6); Mean Corpuscular HGB Conc 31.5 g/dL (31.6-35.5); Mean Corpuscular Hemoglobin 29.9 pg (28.0-33.3); Monocytes # 0.3 K/mcL (0.0-1.3); Neutrophils # 3.2 K/mcL (1.6-8.9); Red Blood Count 2.11 M/mcL (4.19-5.50); Red Cell Distribution Width 20.8 % (11.5-14.5); Segmented Neutrophils % 82.2 %
[2016-09-29 05:17] LABS: Platelet Count 79 K/mcL (140-400)
[2016-09-29] MEDS ORDERED: 0.9 % Sodium Chloride 1,000 ML IVC ONE (08:09)
--- NOTE | 2016-09-29 08:40 | Internal Med Progress Note ---
Date of Encounter: 09/29/16 Time of Encounter: 08:38 - Assessment and plan (1) Altered mental status Current Visit: Yes Status: Resolved Assessment and plan: Possibly secondary to pain medications patient again drowsy from medications this morning Palliative care team will be consulted Qualifiers: Altered mental status type: somnolence Qualified Code(s): R40.0 - Somnolence (2) Cancer associated pain Current Visit: Yes Status: Acute Assessment and plan: Acute on chronic, from the right upper extremity metastasis to the proximal radius. He was evaluated at [facility] on 09/17/2016- Dr. Fuentes. He recommended amputation of right upper extremity for pain control s/p R arm above elbow amputation s/p nerve blocks X3 for phantom limb Continue Dilaudid WAST[employer]ATTING [employer]ASTE CH[employer]PER (3) Squamous cell carcinoma of left lung Current Visit: Yes Status: Chronic Assessment and plan: Per Oncology, patient is responding to palliative chemo Onc consult appreciated Cbc is acceptable after transfusion Ensure DVT prophylaxis with heparin (4) Anemia Current Visit: Yes Status: Acute Assessment and plan: Symptomatic Possibly due to underlying malignancy and chemotherapy s/p 3 units RBC Hb stable Qualifiers: Anemia type: unspecified type Qualified Code(s): D64.9 - Anemia, unspecified (5) Hypotension Current Visit: Yes Status: Acute Assessment and plan: Possibly from anemia and medications Continue IVF and continue to monitor Qualifiers: Hypotension type: unspecified hypotension type Qualified Code(s): I95.9 - Hypotension, unspecified (6) Fever Current Visit: Yes Status: Acute Assessment and plan: Chart review 09/28 reveals patient had 2 episodes of low-grade fever and tachycardia His admitting blood culture was negative UA is negative for infection X2 CXR done 09/28 post-op is negative Repeat blood culture report pending He has been afebrile since 09/28 1130 Will monitor Will not start antibiotics for now as we have no source at this time Qualifiers: Fever type: unspecified Qualified Code(s): R50.9 - Fever, unspecified (7) Phantom limb syndrome with pain Current Visit: Yes Status: Acute Assessment and plan: As in cancer related pain Anesthesia input appreciated - Subjective Interval history: Evaluated at bedside, at the bedside POD 1 Mr Selby is a 70 Y/O M with Stage IV Lung CA (with metastasis to R arm, R iliac bone, R femur, R adrenal mass, )with R arm bone mets and intractable pain, he is currently on palliative chemo, he was transferred to ER due to somnolence from pain medications He has been in intractable pain suspected phantom limb since last night, requiring nerve blocks by anesthesisa X3 he has remained afebrile Preliminary sepsis work up negative Blood pressure trending down Evaluated at bedside with his at the bedside He is drowsy from his pain medications but is able to respond to name call and follow commands He occasionally winces and 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 Absent: lymphadenopathy - Respiratory Respiratory exam: Present: CTAB. Absent: accessory muscle use, rales, rhonchi, wheezes - Cardiovascular Cardiovascular exam: Present: RRR, +S1, +S2. Absent: diastolic murmur, gallop, rubs, systolic murmur - GI/Abdominal GI/Abdominal exam: Present: normal bowel sounds, soft, no peritoneal signs. Absent: distended, tenderness - Extremities Exam Extremities exam: Present: warm, radial pulses palpable and symetrical. Absent : calf tenderness, cyanotic, pedal edema Additional comments: R arm s/p above elbow amputation, dressing is clean and dry with no obvious signs of bleeding He has chronic venous stasis changes on both LE - Back Exam Additional comments: R paraspinal mass - Neurological Exam Neurological exam: Present: CN II-XII intact, no focal deficits. Absent: pronater drift, facial droop, speech deficit Additional comments: Patient is drowsy from pain medications but he responds to name call and follows commands eqivocally - Skin Skin exam: Present: dry Internal Medicine: Result - Labs CBC & Chem 7: 09/29/16 04:49 09/28/16 04:15 Labs: Short CBC 09/28/16 09/29/16 Range/Units 17:24 04:49 WBC 4.9 3.9 L (4.3-11.1) K/mcL Hgb 7.8 L 6.3 L D (12.9-16.9) g/dL Hct 24.3 L 20.0 L (37.5-50.1) % Plt Count 88 L 79 L (140-400) K/mcL Neutrophils # 4.1 3.2 (1.6-8.9) K/mcL - ABG Interpretation ABG results: PT/INR, D-dimer PT 12.8 Seconds (9.4-12.1) H 09/26/16 14:04 - Impressions Impressions Chest X-Ray 09/28/16 11:51 IMPRESSION: No acute process. D/ / Joe Angelo MD / Joe Angelo MD Interpreting Provider: Joe Angelo MD Consult Discharge Plan - Plan Referrals: Sendy Mauro CNP [Primary Care Provider] - 10/03/16 8:00 am
[2016-09-29] MEDS: 0.9 % Sodium Chloride 1,000 ML IVC SCH (09:02)
--- NOTE | 2016-09-29 09:59 | Pallative History & Physical ---
Date of Encounter: 09/29/16 Time of Encounter: 09:55 Internal Medicine - H&P: HPI Chief complaint: pain Admitted From: Emergency Dept History of present illness: Mr. Selby is a 70 year old male with past medical history of metastatic lung cancer. The patient was admitted for altered mental status and cancer associated pain. During the patient's hospital stay he underwent a right arm amputation. Patient's pain is only currently mildly controlled. Patient has episodes of what appears to be neuropathic pain every 15 -20minutes of last for approximately 3045 seconds in nature. At this point the patient's pain has attempted to be controlled with Dilaudid continuous pump at a rate of 1 mg per hour with PRODUCTION OPERATIONS MANAGER capability of 0.2 mg every 6 minutes. Post amputation the patient 's nerve block or off relatively quickly, lasting only approximately 6-8 hours. Patient received a rescue nerve block which also lasted for a limited time. Patient has received 3 doses of ketamine by anesthesia which has significantly helped in the reduction of overall pain medications per family. Past Med Surg Social Fam HX - Past Medical History Medical history: arthritis, cancer, diabetes, hypertension, other Psychiatric history: no psych history - Past Surgical History Surgical History: cataract, other - Social History Smoking Status: Former smoker Smokeless Tobacco Status: No Alcohol use: none Drug use: none Internal Medicine - H&P: Meds Polyethylene Glycol 3350 [MiraLAX Powder Bulk 17.9 Oz] 1 scoop PO Q48H PRN 05/08 [History] Dexamethasone [Decadron] 8 mg PO AD #60 tab 05/21/16 [Rx] Prochlorperazine Maleate [Compazine] 10 mg PO Q6HR PRN #60 tablet 05/21/16 [Rx] Lidocaine/Prilocaine CREAM [Emla] 1 appl TP AD #1 tube 06/05/16 [Rx] Calcium Carb/Vitamin D3/Vit K1 [Calcium + D Soft Chewable Tab] 2 each PO DAILY # 60 tab.chew 06/06/16 [Rx] Acetaminophen [Tylenol] 325 mg PO Q4-6H PRN 09/26/16 [History] Furosemide [Lasix] 20 mg PO DAILY PRN 09/26/16 [History] Gabapentin [Neurontin] 800 mg PO TID 09/26/16 [History] LORazepam [Ativan] 1 mg PO DAILY 09/26/16 [History] Magnesium Oxide [Magnesium] 400 mg PO DAILY 09/26/16 [History] Oxycodone HCl 15 mg PO Q4-6H PRN 09/26/16 [History] Potassium Chloride [Klor-Con 10] 10 meq PO DAILY PRN 09/26/16 [History] Sertraline [Zoloft] 50 mg PO QAM 09/26/16 [History] Allergies morphine Adverse Reaction (Verified 06/17/16 13:06) Confusion Palliative Care-Exam - Constitutional Vitals: Temp Pulse Resp BP Pulse Ox 99.0 F 88 20 87/39 100 09/29/16 05:37 09/29/16 09:00 09/29/16 09:00 09/29/16 07:46 09/29/16 09:00 Internal Medicine - H&P: Reslt - Labs CBC & Chem 7: 09/29/16 04:49 09/28/16 04:15 Labs: Short CBC 09/28/16 09/29/16 Range/Units 17:24 04:49 WBC 4.9 3.9 L (4.3-11.1) K/mcL Hgb 7.8 L 6.3 L D (12.9-16.9) g/dL Hct 24.3 L 20.0 L (37.5-50.1) % Plt Count 88 L 79 L (140-400) K/mcL Neutrophils # 4.1 3.2 (1.6-8.9) K/mcL - Impressions ITS Impressions Chest X-Ray 09/28/16 11:51 IMPRESSION: No acute process. D/ / Joe Angelo MD / Joe Angelo MD Interpreting Provider: Joe Angelo MD
--- NOTE | 2016-09-29 10:06 | Palliative - Consult Note ---
<Usman Johnson M - Last Filed: 09/29/16 10:56> Date of Encounter: 09/29/16 Time of Encounter: 10:04 - Assessment and Plan (1) Goals of care, counseling/discussion Current Visit: Yes Status: Acute Assessment and plan: At this point in time hospice has been discussed with family. does not want to hospice at this time. Goals of care include keeping him comfortable and trying to allow him to go home. Patient's only symptoms from cancer have been musculoskeletal pain. Patient has had no dyspnea or other symptoms. Current plan for symptom control includes adding Methadone 2.5mg BID and consulting Pain Management for further information and discussion regarding other pain management techniques including possible ablation. (2) Cancer associated pain Current Visit: Yes Status: Acute Assessment and plan: At this time the patient is on a Dilaudid continuous/CUTTER IN. Patient has received 3 doses of ketamine by anesthesia. At this point we would like to add methadone 2.5 mg twice a day and be able to eventually wean continuous Dilaudid off and leave Dilaudid when necessary as needed. Patient's pain is been incompletely controlled with opiate medications. After discussing with family multiple options, they would like to hear more about possible nerve ablation. We will discuss pain management in regards to further discussing ablation options. Palliative-CN HPI - Data of Consult Consult date: 09/29/16 Requesting Physician: Tee Cowan MD Primary Care Provider: Sendy Mauro CNP - Consult Narrative Palliative Care/Comfort Measures: Palliative care Reason for consult: pain control; introduce idea of hospice History of present illness: Mr. Selby is a 70 year old male with past medical history of metastatic lung cancer. The patient was admitted for altered mental status and cancer associated pain. During the patient's hospital stay he underwent a right arm amputation. Patient's pain is only currently mildly controlled. Patient has episodes of what appears to be neuropathic pain every 15 -20minutes of last for approximately 30-45 seconds in nature. At this point the patient's pain has attempted to be controlled with Dilaudid continuous pump at a rate of 1 mg per hour with CUTTER IN capability of 0.2 mg every 6 minutes. Post amputation, the patient's nerve block or off relatively quickly, lasting only approximately 6-8 hours. Patient received a rescue nerve block which also lasted for a limited time. Patient has received 3 doses of ketamine by anesthesia which has significantly helped in the reduction of overall pain medications per family. CC: Tee Cowan MD Past Med Surg Social Fam HX - Past Medical History Medical history: arthritis, cancer, diabetes, hypertension, other Psychiatric history: no psych history - Past Surgical History Surgical History: cataract, other - Social History Smoking Status: Former smoker Smokeless Tobacco Status: No Alcohol use: none Drug use: none Medications and Allergies Polyethylene Glycol 3350 [MiraLAX Powder Bulk 17.9 Oz] 1 scoop PO Q48H PRN 05/08 [History] Dexamethasone [Decadron] 8 mg PO AD #60 tab 05/21/16 [Rx] Prochlorperazine Maleate [Compazine] 10 mg PO Q6HR PRN #60 tablet 05/21/16 [Rx] Lidocaine/Prilocaine CREAM [Emla] 1 appl TP AD #1 tube 06/05/16 [Rx] Calcium Carb/Vitamin D3/Vit K1 [Calcium + D Soft Chewable Tab] 2 each PO DAILY # 60 tab.chew 06/06/16 [Rx] Acetaminophen [Tylenol] 325 mg PO Q4-6H PRN 09/26/16 [History] Furosemide [Lasix] 20 mg PO DAILY PRN 09/26/16 [History] Gabapentin [Neurontin] 800 mg PO TID 09/26/16 [History] LORazepam [Ativan] 1 mg PO DAILY 09/26/16 [History] Magnesium Oxide [Magnesium] 400 mg PO DAILY 09/26/16 [History] Oxycodone HCl 15 mg PO Q4-6H PRN 09/26/16 [History] Potassium Chloride [Klor-Con 10] 10 meq PO DAILY PRN 09/26/16 [History] Sertraline [Zoloft] 50 mg PO QAM 09/26/16 [History] Allergies morphine Adverse Reaction (Verified 06/17/16 13:06) Confusion - Cardiovascular Cardiovascular ROS: no chest pain, no rapid heart rate - Respiratory Respiratory: no cough, no dyspnea - Gastrointestinal Gastrointestinal: no abdominal pain, no vomiting - Musculoskeletal Musculoskeletal ROS IM: other (right arm pain) - Neurological Neurological ROS: weakness Palliative Care-Exam - Constitutional Vitals: Temp Pulse Resp BP Pulse Ox 99.0 F 88 20 87/39 100 09/29/16 05:37 09/29/16 09:00 09/29/16 09:00 09/29/16 07:46 09/29/16 09:00 General appearance: Present: average body habitus Exam: Intermittent episodes of significant pain lasting approximately 30-45 minutes to an interval of every 15-20 minutes. Pain coming from region of amputation. - Head Head Exam: Present: atraumatic, normal inspection - Eye Eye exam: Present: normal appearance. Absent: conjunctival injection - ENT ENT exam: Present: mucous membranes moist - Neck Neck exam: Present: normal inspection - Respiratory Respiratory exam: Absent: accessory muscle use, chest wall tenderness, respiratory distress - Cardiovascular Cardiovascular exam: Present: RRR - GI/Abdominal Exam GI/Abdominal exam: Present: soft. Absent: tenderness - Extremities Exam Extremities exam: Absent: calf tenderness, tenderness Additional comments: Right upper extremity with above the elbow amputation wrapped in dressing. Dressing clean dry and intact. - Neurological Exam Neurological exam: Present: alert Additional comments: Moving all extremities. Able to answer questions about pain and clinical status. - Skin Additional comments: right upper extremity bandaged. c/d/i Internal Medicine - CN: Reslt - Labs CBC & Chem 7: 09/29/16 04:49 09/28/16 04:15 Labs: Short CBC 09/28/16 09/29/16 Range/Units 17:24 04:49 WBC 4.9 3.9 L (4.3-11.1) K/mcL Hgb 7.8 L 6.3 L D (12.9-16.9) g/dL Hct 24.3 L 20.0 L (37.5-50.1) % Plt Count 88 L 79 L (140-400) K/mcL Neutrophils # 4.1 3.2 (1.6-8.9) K/mcL - ABG Interpretation ABG results: PT/INR, D-dimer PT 12.8 Seconds (9.4-12.1) H 09/26/16 14:04 - Impressions Impressions Chest X-Ray 09/28/16 11:51 IMPRESSION: No acute process. D/ / Joe Angelo MD / Joe Angelo MD Interpreting Provider: Joe Angelo MD Consult Discharge Plan - Plan Referrals: Sendy Mauro CNP [Primary Care Provider] - 10/03/16 8:00 am Palliative Quality Palliative Quality: Screen for Code Status: Yes, Screen for Goals of Care: Yes, Screen for Pain: Yes, If Pain Regimen Started, Initiate Bowel Regimen: Yes, Screen for Nausea/Vomitting: Yes <Liban Hall - Last Filed: 09/29/16 11:20> Date of Encounter: 09/29/16 Palliative-CN HPI - Data of Consult Requesting Physician: Tee Cowan MD Primary Care Provider: Sendy Mauro CNP - Consult Narrative History of present illness: Mr. Selby is a 70 year old male CC: Tee Cowan MD Palliative Care-Exam - Constitutional Vitals: Temp Pulse Resp BP Pulse Ox 99.0 F 88 20 87/39 100 09/29/16 05:37 09/29/16 09:00 09/29/16 09:00 09/29/16 07:46 09/29/16 09:00 Internal Medicine - CN: Reslt - Labs CBC & Chem 7: 09/29/16 04:49 09/28/16 04:15 Labs: Short CBC 09/28/16 09/29/16 Range/Units 17:24 04:49 WBC 4.9 3.9 L (4.3-11.1) K/mcL Hgb 7.8 L 6.3 L D (12.9-16.9) g/dL Hct 24.3 L 20.0 L (37.5-50.1) % Plt Count 88 L 79 L (140-400) K/mcL Neutrophils # 4.1 3.2 (1.6-8.9) K/mcL - ABG Interpretation ABG results: PT/INR, D-dimer PT 12.8 Seconds (9.4-12.1) H 09/26/16 14:04 - Impressions Impressions Chest X-Ray 09/28/16 11:51 IMPRESSION: No acute process. D/ / Joe Angelo MD / Joe Angelo MD Interpreting Provider: Joe Angelo MD - Attending Attestation I examined this patient and my medical decision-making was reviewed with the CHIEF METER READER/PA/Advanced Practice Nurse/Resident Physician. I agree with the documented findings, disposition and treatment plan as described except to the extent set forth below.
[2016-09-29] MEDS: Gabapentin 400 MG CAPSULE PO SCH ×3 (12:04→22:23)
[2016-09-29] MEDS: Magnesium Oxide 400 MG TABLET PO SCH (12:04)
[2016-09-29] MEDS: *HR* LORazepam 1 MG TABLET PO SCH (12:05)
[2016-09-29] MEDS: Sennosides/Docusate Sodium TABLET PO SCH (12:05)
[2016-09-29] MEDS: *HR* Methadone 5 MG TABLET PO SCH ×2 (12:05→22:23)
[2016-09-29] MEDS ORDERED: Calcium Gluconate 2,000 MG in D5% in Water 100 ML IVPB ONE (15:04)
--- NOTE | 2016-09-29 15:05 | Orthopedics Progress Note ---
Date of Encounter: 09/29/16 Time of Encounter: 15:00 Subjective Principal diagnosis: Metastatic lesion right arm Interval history: 09/29/2016. Patient is postop day #1 from right above elbow amputation. Patient had significant pain postop requiring a breakthrough nerve block by anesthesia as well as dosing with ketamine. Patient has been seen by palliative care with methadone added to his pain management protocol. At this time the patient is resting comfortably and is sleeping. I had an extended discussion with his daughter regarding his postop course. He initially appeared to have some questionable phantom pain though it appears that this now may really be postoperative pain from the amputation itself. Vital signs are stable, patient is afebrile. Dressings show only minor serosanguineous drainage along the medial aspect of the stump. Hemoglobin is 6.3. White blood cell count is 3.9. Platelets are relatively stable at 79. Impression: POD #1 right above elbow amputation for palliative treatment of metastatic lesion Recommendation: Continue with pain management per medicine. We will evaluate surgical incision in 24 hours. We will try to elevate stump if possible. Objective Vital signs: Vital Signs Temp Pulse Resp BP Pulse Ox 09/29/16 13:00 79 20 99 09/29/16 11:31 97.8 F 97 18 91/54 99 09/29/16 09:00 88 20 100 09/29/16 07:46 93 16 87/39 99 09/29/16 05:37 99.0 F 96 15 98/65 98 09/28/16 22:30 96 16 94/50 100 09/28/16 22:05 98.3 F 88 18 96/58 98 09/28/16 21:07 108 18 95/57 100 09/28/16 20:45 95 16 92/60 100 09/28/16 20:30 16 96/40 100 09/28/16 20:15 18 95/50 96 09/28/16 20:00 18 98/58 95 09/28/16 17:12 97.3 F L 95 18 90/60 98 09/28/16 15:54 98.1 F 89 15 97/66 Intake and Output 09/28/16 09/29/16 09/29/16 23:59 07:59 15:59 Intake Total 1100 / 1100 1999 Output Total 675 / 675 Balance 1100 / 1100 -675 / -675 1999 Intake: IV Fluids 1100 / 1100 1999 / 1999 0.9 % Sodium Chloride 1, 1000 / 1000 1999 / 1999 000 ML @ 3750 mls/hr IVC .Q16M [facility] Rx#:[id number] Ancef 2,000 MG In 100 / 100 Dextrose 5% 100 ML @ 200 mls/hr IVPB Q8H [facility] Rx#: [id number] Output: Urine 675 / 675 Urethral (Bell) 675 / 675 Other: Weight 59.8 kg 61.1 kg Patient Weight 09/29/16 23:59 Weight 61.1 kg - Labs CBC & BMP: 09/29/16 04:49 09/28/16 04:15 Labs: Abnormal lab results WBC 3.9 K/mcL (4.3-11.1) L 09/29/16 04:49 RBC 2.11 M/mcL (4.19-5.50) L 09/29/16 04:49 Hgb 6.3 g/dL (12.9-16.9) L D 09/29/16 04:49 Hct 20.0 % (37.5-50.1) L 09/29/16 04:49 MCHC 31.5 g/dL (31.6-35.5) L 09/29/16 04:49 RDW 20.8 % (11.5-14.5) H 09/29/16 04:49 Plt Count 79 K/mcL (140-400) L 09/29/16 04:49 Lymphocytes # 0.4 K/mcL (0.6-4.6) L 09/29/16 04:49 Platelet Estimate Decreased (Normal) L 09/27/16 06:20 Anisocytosis 2+ (Not Present) A 09/27/16 06:20 Macrocytosis Present (Not Present) A 09/27/16 06:20 PT 12.8 Seconds (9.4-12.1) H 09/26/16 14:04 APTT 24.3 Seconds (26.0-36.0) L 09/26/16 14:04 Potassium 3.3 mEq/L (3.5-4.5) L 09/28/16 04:15 Creatinine 0.55 mg/dL (0.72-1.25) L 09/28/16 04:15 Calcium 7.6 mg/dL (8.6-10.8) L 09/28/16 04:15 Serum Total Protein 4.9 g/dL (6.0-8.3) L 09/27/16 05:04 Albumin 1.8 g/dL (3.5-5.0) L 09/27/16 05:04 Albumin/Globulin Ratio 0.6 (1.1-2.2) L 09/27/16 05:04 Ur Specific [place] > 1.030 (1.010-1.025) H 09/27/16 13:00 Urine Ketones Trace mg/dL (Negative) H 09/27/16 13:00 Consult Discharge Plan - Plan Referrals: Sendy Mauro, JODI [Primary Care Provider] - 10/03/16 8:00 am
[2016-09-29] MEDS: 0.9 % Sodium Chloride w KCl 20 MEQ/1,000 ML MLS IVC SCH (15:48)
--- NOTE | 2016-09-29 19:06 | Oncology Inp Progress Note ---
Date of Encounter: 09/29/16 Time of Encounter: 19:43 (1) Cancer associated pain Current Visit: Yes Status: Acute Assessment and plan: Patient with intractable right arm pain secondary to metastatic lesion in the right proximal forearm. On 09/28/2016, he underwent right above elbow amputation. He has significant pain postop requiring a breakthrough nerve block by anesthesia. Pain is better controlled presently. 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 He is status post treatment with immunotherapy and carboplatin/ Abraxane. Recent CT scan with contrast on 09/26/2016 showed a new 3 cm x 4 cm mass which is just above the cavitary mass and this is new since June 2016 cavitary masses stable at 3 cm. There is also a 2 cm right hilar lymph node which has developed since last scan. Treatment to be continued as an outpatient. (3) Anemia Current Visit: Yes Status: Acute Assessment and plan: Multi-factorial. Chemotherapy-induced and anemia of inflammation. Please transfuse for hemoglobin less than 8. Qualifiers: Anemia type: other cause Other causes of anemia: antineoplastic chemotherapy Qualified Code(s): D64.81 - Anemia due to antineoplastic chemotherapy Oncology: Subj Interval history: Pain is better controlled today as per his . Patient is sleeping comfortable. - Constitutional Vitals: Vital Signs Temp Pulse Resp BP Pulse Ox 09/29/16 18:00 84 14 98/48 96 09/29/16 17:00 77 09/29/16 16:49 98.6 F 87 14 99/54 97 09/29/16 16:34 99.7 F H 86 16 113/57 98 09/29/16 16:05 86 18 104/59 98 09/29/16 13:00 79 20 99 09/29/16 11:31 97.8 F 97 18 91/54 99 09/29/16 09:00 88 20 100 09/29/16 07:46 93 16 87/39 99 09/29/16 05:37 99.0 F 96 15 98/65 98 09/28/16 22:30 96 16 94/50 100 09/28/16 22:05 98.3 F 88 18 96/58 98 09/28/16 21:07 108 18 95/57 100 09/28/16 20:45 95 16 92/60 100 09/28/16 20:30 16 96/40 100 09/28/16 20:15 18 95/50 96 09/28/16 20:00 18 98/58 95 Intake and Output 09/29/16 09/29/16 09/29/16 07:59 15:59 23:59 Intake Total 2610 / 2610 220 / 220 Output Total 675 / 675 375 / 375 Balance -675 / -675 2610 / 2610 -155 / -155 Intake: IV Fluids 2610 / 2610 220 / 220 0.9 % Sodium Chloride 1, 2610 / 2610 000 ML @ 100 mls/hr IVC . Q10H [facility] Rx#:[id number] Calcium Gluconate 2,000 120 / 120 MG In Dextrose 5% 100 ML @ 220 mls/hr IVPB ONCE ONE Rx#:[id number] Blood Product 0 / 0 Rbcs Leuko Poor As-1 0 / 0 Unit [id number] Output: Urine 675 / 675 Urethral (Bell) 675 / 675 Catheter 375 / 375 Other: Meal Lunch Percent of Meal Consumed 10% Weight 61.1 kg Patient Weight 09/29/16 23:59 Weight 61.1 kg General appearance: average body habitus, no acute distress Exam: Patient is sleeping comfortable. - Head Head exam: Present: normal inspection, normocephalic - Eye Eye exam: Present: EOMI, normal appearance - Neck Neck exam: Absent: lymphadenopathy - Respiratory Respiratory exam: Present: CTAB - Cardiovascular Cardiovascular exam: Present: RRR, +S1, +S2 - GI/Abdominal GI/Abdominal exam: Present: soft. Absent: rebound, rigid, tenderness - Extremities Exam Additional comments: chronis stasis dermatitis. Oncology: Obj Data - Labs CBC & Chem 7: 09/29/16 04:49 09/28/16 04:15 Labs: Laboratory Results - last 24 hr 09/29/16 04:49 WBC 3.9 L RBC 2.11 L Hgb 6.3 L D Hct 20.0 L MCV 94.8 MCH 29.9 MCHC 31.5 L RDW 20.8 H Plt Count 79 L MPV 10.4 Immature Gran % 0.5 Seg Neutrophils % 82.2 Lymphocytes % 9.0 Monocytes % 8.0 Eosinophils % 0.0 Basophils % 0.3 Neutrophils # 3.2 Lymphocytes # 0.4 L Monocytes # 0.3 Eosinophils # 0.0 Basophils # 0.0 Immature Plt Fraction 3.7 - ABG Interpretation ABG results: PT/INR, D-dimer PT 12.8 Seconds (9.4-12.1) H 09/26/16 14:04 Consult Discharge Plan - Plan Referrals: Sendy Mauro CNP [Primary Care Provider] - 10/03/16 8:00 am
[2016-09-30] MEDS: 0.9 % Sodium Chloride w KCl 20 MEQ/1,000 ML MLS IVC SCH (02:39)
[2016-09-30 08:12] LABS: BUN/Creatinine Ratio 12 (6-26); Blood Urea Nitrogen 6 mg/dL (8-26); Calcium 6.6 mg/dL (8.6-10.8); Carbon Dioxide 23 mEq/L (19-29); Chloride 114 mEq/L (98-109); Glucose 66 mg/dL (70-99); Osmolality,Calculated 292 (280-300); Potassium 3.7 mEq/L (3.5-4.5); Sodium 143 mEq/L (136-145); eGFR For African Americans > 60 (> 60); eGFR For Non-African Americans > 60 (> 60)
--- NOTE | 2016-09-30 09:35 | Internal Med Progress Note ---
Date of Encounter: 09/30/16 Time of Encounter: 09:33 - Assessment and plan (1) Altered mental status Current Visit: Yes Status: Resolved Assessment and plan: Resolved Possibly secondary to pain medications Qualifiers: Altered mental status type: somnolence Qualified Code(s): R40.0 - Somnolence (2) Cancer associated pain Current Visit: Yes Status: Acute Assessment and plan: Acute on chronic, from the right upper extremity metastasis to the proximal radius. He was evaluated at [facility] on 09/17/2016- Dr. Fuentes. He recommended amputation of right upper extremity for pain control s/p R arm above elbow amputation. POD 2 Pain much more controlled now s/p nerve blocks X3 for phantom limb Continue Dilaudid SHRIMP HEADER Attempt to increase po meds and titrate off dilaudid IV (3) Squamous cell carcinoma of left lung Current Visit: Yes Status: Chronic Assessment and plan: Per Oncology, patient is responding to palliative chemo Onc consult appreciated Ensure DVT prophylaxis with heparin (4) Anemia Current Visit: Yes Status: Acute Assessment and plan: Symptomatic Possibly due to underlying malignancy and chemotherapy, as well as blood loss from surgery s/p 5 units RBC Hb 7.7 from 6.3 after 2 units yesterday Will transfuse one more unit, aim for Hb at least 8 Qualifiers: Anemia type: other cause Other causes of anemia: antineoplastic chemotherapy Qualified Code(s): D64.81 - Anemia due to antineoplastic chemotherapy (5) Hypotension Current Visit: Yes Status: Acute Assessment and plan: Improved Possibly from anemia and medications D/C IVF after current bag Qualifiers: Hypotension type: unspecified hypotension type Qualified Code(s): I95.9 - Hypotension, unspecified (6) Fever Current Visit: Yes Status: Resolved Assessment and plan: Resolved 09/28 reveals patient had 2 episodes of low-grade fever and tachycardia His admitting blood culture was negative UA is negative for infection X2 CXR done 09/28 post-op is negative Repeat blood culture report pending He has been afebrile since 09/28 1130 Will monitor Will not start antibiotics for now as we have no source at this time Qualifiers: Fever type: unspecified Qualified Code(s): R50.9 - Fever, unspecified (7) Phantom limb syndrome with pain Current Visit: Yes Status: Suspected Assessment and plan: As in cancer related pain Anesthesia input appreciated - Subjective Interval history: Evaluated at bedside, at the bedside POD 2 Mr Selby is a 70 Y/O M with Stage IV Lung CA (with metastasis to R arm, R iliac bone, R femur, R adrenal mass, )with R arm bone mets and intractable pain, he is currently on palliative chemo, he was transferred to ER due to somnolence from pain medications He is seen siting up n bed this a.m, a3wake, alert not in any form of distress and able to participate in history He has been started on methadone by palliative Palliative, oncology, surgery input appreciated he is s/p total 5 units RBCs, Hb this a.m 7.7 - Constitutional Vitals: Temp Pulse Resp BP Pulse Ox 98.5 F 90 14 104/52 97 09/30/16 07:38 09/30/16 07:38 09/30/16 07:38 09/30/16 07:38 09/30/16 07:38 General appearance: Present: A&O X 3, pleasant, no acute distress - Head Head exam: Present: atraumatic, normocephalic - Eye Eye exam: Present: PERRL, conjuntiva pink, sclera anicteric Pupils: Present: PERRL - Neck Neck exam general surgery: Present: supple, trachea midline. Absent: lymphadenopathy - Respiratory Respiratory exam: Present: CTAB. Absent: accessory muscle use, rales, rhonchi, wheezes - Cardiovascular Cardiovascular exam: Present: RRR, +S1, +S2. Absent: diastolic murmur, gallop, rubs, systolic murmur - GI/Abdominal GI/Abdominal exam: Present: normal bowel sounds, soft, no peritoneal signs. Absent: distended, tenderness - Extremities Exam Extremities exam: Present: warm. Absent: calf tenderness, cyanotic, pedal edema Additional comments: s/p r above elbow amputaton, dressing clean and dry - Neurological Exam Neurological exam: Present: alert, CN II-XII intact, oriented X3, no focal deficits. Absent: pronater drift, facial droop, speech deficit - Skin Skin exam: Present: dry, intact Internal Medicine: Result - Labs CBC & Chem 7: 09/30/16 07:41 09/30/16 07:41 Labs: Short CBC 09/30/16 Range/Units 07:41 Hgb 7.7 L (12.9-16.9) g/dL BMP 09/30/16 07:41 Sodium 143 Potassium 3.7 Chloride 114 H Carbon Dioxide 23 BUN 6 L Creatinine 0.51 L Glucose 66 L Calcium 6.6 L - ABG Interpretation ABG results: PT/INR, D-dimer PT 12.8 Seconds (9.4-12.1) H 09/26/16 14:04 Consult Discharge Plan - Plan Referrals: Sendy Mauro CNP [Primary Care Provider] - 10/03/16 8:00 am
[2016-09-30] MEDS: Sennosides/Docusate Sodium TABLET PO SCH (09:50)
[2016-09-30] MEDS: Gabapentin 400 MG CAPSULE PO SCH ×3 (09:50→20:55)
[2016-09-30] MEDS: *HR* LORazepam 1 MG TABLET PO SCH (09:50)
[2016-09-30] MEDS: Magnesium Oxide 400 MG TABLET PO SCH (09:51)
[2016-09-30] MEDS: *HR* Methadone 5 MG TABLET PO SCH ×2 (09:51→20:55)
--- NOTE | 2016-09-30 10:12 | Palliative Progress Note ---
<Usman Johnson - Last Filed: 09/30/16 10:20> Date of Encounter: 09/30/16 Time of Encounter: 09:15 - Assessment and plan (1) Goals of care, counseling/discussion Current Visit: Yes Status: Acute Assessment and plan: CODE STATUS: DNRCCA/DNI. They are discussing their current options regarding hospice vs home health and have not come to any conclusions at this point. It was discussed that the patient would not be able to get regular blood transfusions with [facility]. (2) Cancer associated pain Current Visit: Yes Status: Acute Assessment and plan: The patients pain has significantly improved with the addition of methadone. The patients dilaudid infusion has been constant but breakthrough pain requirements have significantly decreased. Pain controllled other than breakthrough neurologic pain that he can tell is coming on prior to maximum pain episodes. Recommendations: - Continue Methadone - Increase gabapentin to 1000mg TID - Decrease Dilaudid infusion to 0.5mg/hr - Discussed with pain management- ablation is not a good option at this point. They will be happy to evaluate if the pain worsens and needs re-evaluated. - Time Spent With Patient Total time spent is greater than 50% in coordination of care (as documented) at patient's floor/unit and/or counseling patient: Greater than 35 minutes - Subjective Interval history: patient significantly improved from yesterday. baseline pain is now under control. Patient has episodes of sharp s within the right arm that are intermittent in nature. 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 The patient is conversational and able to make jokes. Family is happy about progress and care. They are discussing their current options regarding hospice vs home health and have not come to any conclusions at this point. It was discussed that the patient would not be able to get regular blood transfusions with [facility]. - Constitutional Vitals: Abnormal lab results WBC 3.9 K/mcL (4.3-11.1) L 09/29/16 04:49 RBC 2.11 M/mcL (4.19-5.50) L 09/29/16 04:49 Hgb 7.7 g/dL (12.9-16.9) L 09/30/16 07:41 Hct 20.0 % (37.5-50.1) L 09/29/16 04:49 MCHC 31.5 g/dL (31.6-35.5) L 09/29/16 04:49 RDW 20.8 % (11.5-14.5) H 09/29/16 04:49 Plt Count 79 K/mcL (140-400) L 09/29/16 04:49 Lymphocytes # 0.4 K/mcL (0.6-4.6) L 09/29/16 04:49 Platelet Estimate Decreased (Normal) L 09/27/16 06:20 Anisocytosis 2+ (Not Present) A 09/27/16 06:20 Macrocytosis Present (Not Present) A 09/27/16 06:20 PT 12.8 Seconds (9.4-12.1) H 09/26/16 14:04 APTT 24.3 Seconds (26.0-36.0) L 09/26/16 14:04 Chloride 114 mEq/L (98-109) H 09/30/16 07:41 BUN 6 mg/dL (8-26) L 09/30/16 07:41 Creatinine 0.51 mg/dL (0.72-1.25) L 09/30/16 07:41 Glucose 66 mg/dL (70-99) L 09/30/16 07:41 Calcium 6.6 mg/dL (8.6-10.8) L 09/30/16 07:41 Serum Total Protein 4.9 g/dL (6.0-8.3) L 09/27/16 05:04 Albumin 1.8 g/dL (3.5-5.0) L 09/27/16 05:04 Albumin/Globulin Ratio 0.6 (1.1-2.2) L 09/27/16 05:04 Ur Specific [place] > 1.030 (1.010-1.025) H 09/27/16 13:00 Urine Ketones Trace mg/dL (Negative) H 09/27/16 13:00 - Head Head exam: Present: atraumatic, normocephalic - Eye Eye exam: Absent: conjunctival injection, scleral icterus, sclera anicteric - Neck Neck exam: Present: normal inspection - Respiratory Respiratory exam: Absent: accessory muscle use, respiratory distress - Extremities Exam Additional comments: right upper extremity with recent amputation. The arm is dressed c/d/i. patient moving RUE with significant ROM without difficulty or significant pain. - Neurological Exam Neurological exam: Present: alert, oriented X3. Absent: facial droop, speech deficit - Psychiatric Psychiatric exam: Present: normal affect, normal mood - Skin Additional comments: RUE amputation. No other signs of injury, abrasion, or rash Palliative Quality Palliative Quality: Screen for Code Status: Yes, Screen for Goals of Care: Yes, Screen for Pain: Yes, If Pain Regimen Started, Initiate Bowel Regimen: Yes, Screen for Nausea/Vomitting: Yes - Labs CBC & Chem 7: 09/30/16 07:41 09/30/16 07:41 Labs: Laboratory Results - last 24 hr 09/30/16 09/30/16 07:41 07:41 Hgb 7.7 L Sodium 143 Potassium 3.7 Chloride 114 H Carbon Dioxide 23 BUN 6 L Creatinine 0.51 L Est GFR ( Amer) > 60 Est GFR (Non-Af Amer) > 60 BUN/Creatinine Ratio 12 Glucose 66 L Calculated Osmolality 292 Calcium 6.6 L - ABG Interpretation ABG results: PT/INR, D-dimer PT 12.8 Seconds (9.4-12.1) H 09/26/16 14:04 Consult Discharge Plan - Plan Referrals: Sendy Mauro, JODI [Primary Care Provider] - 10/09/16 9:00 am <Liban Hall - Last Filed: 10/01/16 11:10> Date of Encounter: 10/01/16 - Time Spent With Patient Total time spent is greater than 50% in coordination of care (as documented) at patient's floor/unit and/or counseling patient: - Constitutional Vitals: Abnormal lab results WBC 3.1 K/mcL (4.3-11.1) L 10/01/16 05:30 RBC 2.82 M/mcL (4.19-5.50) L 10/01/16 05:30 Hgb 8.6 g/dL (12.9-16.9) L 10/01/16 05:30 Hct 26.2 % (37.5-50.1) L 10/01/16 05:30 RDW 18.2 % (11.5-14.5) H 10/01/16 05:30 Plt Count 65 K/mcL (140-400) L 10/01/16 05:30 Lymphocytes # 0.4 K/mcL (0.6-4.6) L 10/01/16 05:30 Platelet Estimate Decreased (Normal) L 09/27/16 06:20 Anisocytosis 2+ (Not Present) A 09/27/16 06:20 Macrocytosis Present (Not Present) A 09/27/16 06:20 PT 12.8 Seconds (9.4-12.1) H 09/26/16 14:04 APTT 24.3 Seconds (26.0-36.0) L 09/26/16 14:04 Chloride 112 mEq/L (98-109) H 10/01/16 05:30 BUN 5 mg/dL (8-26) L 10/01/16 05:30 Creatinine 0.47 mg/dL (0.72-1.25) L 10/01/16 05:30 Calcium 7.1 mg/dL (8.6-10.8) L 10/01/16 05:30 Serum Total Protein 4.9 g/dL (6.0-8.3) L 09/27/16 05:04 Albumin 1.8 g/dL (3.5-5.0) L 09/27/16 05:04 Albumin/Globulin Ratio 0.6 (1.1-2.2) L 09/27/16 05:04 Ur Specific [place] > 1.030 (1.010-1.025) H 09/27/16 13:00 Urine Ketones Trace mg/dL (Negative) H 09/27/16 13:00 - Attending Attestation I examined this patient and my medical decision-making was reviewed with the Resident Physician. I agree with the documented findings, disposition and treatment plan as described except to the extent set forth below. have discussed with Dr Auguste, he will prescribe methadone after pt's d/c - Labs CBC & Chem 7: 10/01/16 05:30 10/01/16 05:30 Labs: Laboratory Results - last 24 hr 09/30/16 10/01/16 10/01/16 09:50 05:30 05:30 WBC 3.1 L RBC 2.82 L Hgb 8.6 L Hct 26.2 L MCV 92.9 MCH 30.5 MCHC 32.8 RDW 18.2 H Plt Count 65 L MPV 9.6 Immature Gran % 1.0 Seg Neutrophils % 73.8 Lymphocytes % 14.2 Monocytes % 10.7 Eosinophils % 0.0 Basophils % 0.3 Neutrophils # 2.3 Lymphocytes # 0.4 L Monocytes # 0.3 Eosinophils # 0.0 Basophils # 0.0 Immature Plt Fraction 3.7 Sodium 143 Potassium 3.5 Chloride 112 H Carbon Dioxide 26 BUN 5 L Creatinine 0.47 L Est GFR ( Amer) > 60 Est GFR (Non-Af Amer) > 60 BUN/Creatinine Ratio 11 Glucose 77 Calculated Osmolality 292 Calcium 7.1 L Blood Type O POSITIVE Antibody Screen NEGATIVE Crossmatch See Detail - ABG Interpretation ABG results: PT/INR, D-dimer PT 12.8 Seconds (9.4-12.1) H 09/26/16 14:04
[2016-09-30] MEDS: *HR* HYDROmorphone 20 MG/20 ML PCA IVC PRN ×2 (10:40→16:12)
[2016-09-30] MEDS ORDERED: 0.9 % Sodium Chloride 250 ML ONE (11:12)
[2016-09-30] MEDS: 0.9 % Sodium Chloride 500 ML ONE (14:31)
[2016-09-30] MEDS: Gabapentin 300 MG CAPSULE PO SCH ×2 (14:32→20:54)
[2016-09-30] MEDS ORDERED: Calcium Gluconate 2,000 MG in D5% in Water 100 ML IVPB ONE (18:40)
--- NOTE | 2016-09-30 18:51 | Orthopedics Progress Note ---
Date of Encounter: 09/30/16 Time of Encounter: 18:48 Subjective Principal diagnosis: Metastatic lesion right arm Interval history: 09/29/2016. Patient is postop day #1 from right above elbow amputation. Patient had significant pain postop requiring a breakthrough nerve block by anesthesia as well as dosing with ketamine. Patient has been seen by palliative care with methadone added to his pain management protocol. At this time the patient is resting comfortably and is sleeping. I had an extended discussion with his daughter regarding his postop course. He initially appeared to have some questionable phantom pain though it appears that this now may really be postoperative pain from the amputation itself. Vital signs are stable, patient is afebrile. Dressings show only minor serosanguineous drainage along the medial aspect of the stump. Hemoglobin is 6.3. White blood cell count is 3.9. Platelets are relatively stable at 79. Impression: POD #1 right above elbow amputation for palliative treatment of metastatic lesion Recommendation: Continue with pain management per medicine. We will evaluate surgical incision in 24 hours. We will try to elevate stump if possible. 09/30/2016. Patient is postop day 2 from right above elbow amputation. Pain has improved significantly over the past 24 hours. It is unsure if this is related to his change in medications or the amputation itself. Patient is resting comfortably at this time but awakens. Vital signs are stable. He is afebrile. Dressings were taken down. There is only some serosanguineous drainage. This skin edges are all healthy and viable. Edema appears to be somewhat improved proximally. Impression: POD #2 right above elbow amputation Recommendation: Dressing change was completed today. I will perform any dressing changes. A stump wrap type resting was applied with Evelio wrap today. Patient can move stump as able. Orthopedic status is stable. Objective Vital signs: Vital Signs Temp Pulse Resp BP Pulse Ox 09/30/16 14:43 99.0 F 96 14 96/66 94 09/30/16 13:00 88 09/30/16 11:54 99.9 F H 88 14 95 09/30/16 11:52 85 14 103/61 96 09/30/16 11:46 99.9 F H 88 14 /69 09/30/16 11:39 99.7 F H 85 14 103/61 96 09/30/16 11:00 85 16 98 09/30/16 09:00 85 16 105/71 96 09/30/16 07:38 98.5 F 90 14 104/52 97 09/30/16 07:20 98 09/30/16 07:15 85 14 103/53 98 09/30/16 05:25 108 14 97 09/30/16 03:38 99.1 F 83 14 101/54 97 09/30/16 00:08 83 16 97 09/29/16 23:41 98.2 F 87 16 122/62 09/29/16 21:46 98.1 F 89 14 118/66 97 09/29/16 21:13 98.1 F 91 14 118/66 97 09/29/16 20:58 98.1 F 86 14 98/55 98 09/29/16 20:03 98.2 F 86 16 101/52 92 Intake and Output 09/30/16 09/30/16 09/30/16 07:59 15:59 23:59 Intake Total 1000 / 1000 1590 / 1590 Output Total 375 / 375 450 / 450 Balance 625 / 625 1140 / 1140 Intake: IV Fluids 1000 / 1000 1000 / 1000 KCl 20 mEq in 0.9% Sodium 1000 / 1000 1000 / 1000 Chloride 20 meq In 1,000 ml @ 100 mls/hr IVC . Q10H [facility] Rx#:[id number] Oral 0 / 0 240 / 240 Blood Product 350 / 350 Rbcs Leuko Poor As-1 350 / 350 Unit [id number] Output: Catheter 375 / 375 450 / 450 Other: Meal Lunch Percent of Meal Consumed 0% Weight 61.4 kg Patient Weight 09/30/16 23:59 Weight 61.4 kg - Labs CBC & BMP: 09/30/16 07:41 09/30/16 07:41 Labs: Abnormal lab results WBC 3.9 K/mcL (4.3-11.1) L 09/29/16 04:49 RBC 2.11 M/mcL (4.19-5.50) L 09/29/16 04:49 Hgb 7.7 g/dL (12.9-16.9) L 09/30/16 07:41 Hct 20.0 % (37.5-50.1) L 09/29/16 04:49 MCHC 31.5 g/dL (31.6-35.5) L 09/29/16 04:49 RDW 20.8 % (11.5-14.5) H 09/29/16 04:49 Plt Count 79 K/mcL (140-400) L 09/29/16 04:49 Lymphocytes # 0.4 K/mcL (0.6-4.6) L 09/29/16 04:49 Platelet Estimate Decreased (Normal) L 09/27/16 06:20 Anisocytosis 2+ (Not Present) A 09/27/16 06:20 Macrocytosis Present (Not Present) A 09/27/16 06:20 PT 12.8 Seconds (9.4-12.1) H 09/26/16 14:04 APTT 24.3 Seconds (26.0-36.0) L 09/26/16 14:04 Chloride 114 mEq/L (98-109) H 09/30/16 07:41 BUN 6 mg/dL (8-26) L 09/30/16 07:41 Creatinine 0.51 mg/dL (0.72-1.25) L 09/30/16 07:41 Glucose 66 mg/dL (70-99) L 09/30/16 07:41 Calcium 6.6 mg/dL (8.6-10.8) L 09/30/16 07:41 Serum Total Protein 4.9 g/dL (6.0-8.3) L 09/27/16 05:04 Albumin 1.8 g/dL (3.5-5.0) L 09/27/16 05:04 Albumin/Globulin Ratio 0.6 (1.1-2.2) L 09/27/16 05:04 Ur Specific [place] > 1.030 (1.010-1.025) H 09/27/16 13:00 Urine Ketones Trace mg/dL (Negative) H 09/27/16 13:00 Consult Discharge Plan - Plan Referrals: Sendy Mauro, HANDY MAN [Primary Care Provider] - 10/09/16 9:00 am
[2016-10-01 05:47] LABS: Basophils % 0.3 %; Hemoglobin 8.6 g/dL (12.9-16.9)
[2016-10-01 05:49] LABS: Hematocrit 26.2 % (37.5-50.1); Immature Platelets 3.7 % (1.1-6.1); Lymphocytes # 0.4 K/mcL (0.6-4.6); Lymphocytes % 14.2 %; Mean Corpuscular HGB Conc 32.8 g/dL (31.6-35.5); Mean Corpuscular Hemoglobin 30.5 pg (28.0-33.3); Mean Corpuscular Volume 92.9 fL (83.0-100.0); Mean Platelet Volume 9.6 fL (9.4-12.4); Monocytes # 0.3 K/mcL (0.0-1.3); Monocytes % 10.7 %; Neutrophils # 2.3 K/mcL (1.6-8.9); Platelet Count 65 K/mcL (140-400); Red Blood Count 2.82 M/mcL (4.19-5.50); Red Cell Distribution Width 18.2 % (11.5-14.5); Segmented Neutrophils % 73.8 %
[2016-10-01 05:57] LABS: BUN/Creatinine Ratio 11 (6-26); Calcium 7.1 mg/dL (8.6-10.8); Carbon Dioxide 26 mEq/L (19-29); Chloride 112 mEq/L (98-109); Glucose 77 mg/dL (70-99); Osmolality,Calculated 292 (280-300); Potassium 3.5 mEq/L (3.5-4.5); Sodium 143 mEq/L (136-145); eGFR For African Americans > 60 (> 60); eGFR For Non-African Americans > 60 (> 60)
[2016-10-01 05:59] LABS: Blood Urea Nitrogen 5 mg/dL (8-26)
[2016-10-01] MEDS ORDERED: 0.9 % Sodium Chloride 500 ML ONE (07:45)
[2016-10-01] MEDS: *HR* LORazepam 1 MG TABLET PO SCH (08:34)
[2016-10-01] MEDS: Gabapentin 300 MG CAPSULE PO SCH ×3 (08:34→20:55)
[2016-10-01] MEDS: Gabapentin 400 MG CAPSULE PO SCH ×3 (08:34→20:55)
[2016-10-01] MEDS: Magnesium Oxide 400 MG TABLET PO SCH (08:34)
[2016-10-01] MEDS: Sennosides/Docusate Sodium TABLET PO SCH ×2 (08:34→20:55)
[2016-10-01] MEDS: *HR* HYDROmorphone 20 MG/20 ML PCA IVC PRN (08:36)
--- NOTE | 2016-10-01 08:52 | Palliative Progress Note ---
<Joselo Zheng - Last Filed: 10/01/16 11:12> Date of Encounter: 10/01/16 Time of Encounter: 08:50 - Assessment and plan (1) Goals of care, counseling/discussion Current Visit: Yes Status: Acute Assessment and plan: Keep code status at DNR-CCA/DNI Brought up hospice briefly, but patient and family not interested at this point Social work currently working on setting up home health, hospital bed, commode, and shower chair (2) Cancer associated pain Current Visit: Yes Status: Acute Assessment and plan: Pain continues to improve today; continue oral analgesia with Methadone 2.5 mg BID and Gabapentin 1000 mg TID 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 Auguste at [facility], who agreed to manage the patient's Methadone prescription as outpatient - Time Spent With Patient Total time spent is greater than 50% in coordination of care (as documented) at patient's floor/unit and/or counseling patient: - Subjective Interval history: Pt seen and examined with at beside. He states his breathing, pain, and appetite have improved since yesterday, and confirms that he looks better today. He does have right shoulder pain that is made worse with coughing, but denies any nausea, vomiting, diarrhea. does mention that there has been no bowel movements since Friday. - Constitutional Vitals: Abnormal lab results WBC 3.1 K/mcL (4.3-11.1) L 10/01/16 05:30 RBC 2.82 M/mcL (4.19-5.50) L 10/01/16 05:30 Hgb 8.6 g/dL (12.9-16.9) L 10/01/16 05:30 Hct 26.2 % (37.5-50.1) L 10/01/16 05:30 RDW 18.2 % (11.5-14.5) H 10/01/16 05:30 Plt Count 65 K/mcL (140-400) L 10/01/16 05:30 Lymphocytes # 0.4 K/mcL (0.6-4.6) L 10/01/16 05:30 Platelet Estimate Decreased (Normal) L 09/27/16 06:20 Anisocytosis 2+ (Not Present) A 09/27/16 06:20 Macrocytosis Present (Not Present) A 09/27/16 06:20 PT 12.8 Seconds (9.4-12.1) H 09/26/16 14:04 APTT 24.3 Seconds (26.0-36.0) L 09/26/16 14:04 Chloride 112 mEq/L (98-109) H 10/01/16 05:30 BUN 5 mg/dL (8-26) L 10/01/16 05:30 Creatinine 0.47 mg/dL (0.72-1.25) L 10/01/16 05:30 Calcium 7.1 mg/dL (8.6-10.8) L 10/01/16 05:30 Serum Total Protein 4.9 g/dL (6.0-8.3) L 09/27/16 05:04 Albumin 1.8 g/dL (3.5-5.0) L 09/27/16 05:04 Albumin/Globulin Ratio 0.6 (1.1-2.2) L 09/27/16 05:04 Ur Specific [place] > 1.030 (1.010-1.025) H 09/27/16 13:00 Urine Ketones Trace mg/dL (Negative) H 09/27/16 13:00 General appearance: Present: cooperative, no acute distress, thin - Head Head exam: Present: atraumatic, normal inspection, normocephalic - Eye Eye exam: Present: PERRL, sclera anicteric - Respiratory Respiratory exam: Present: decreased breath sounds - Cardiovascular Cardiovascular exam: Present: RRR, +S1, +S2 - GI/Abdominal GI/Abdominal exam: Present: normal bowel sounds, soft. Absent: distended, firm , guarding, tenderness - Extremities Exam Extremities exam: Present: tenderness (in RUE s/p amputation) - Neurological Exam Neurological exam: Present: alert, CN II-XII intact. Absent: facial droop, speech deficit Palliative Quality Palliative Quality: Screen for Code Status: Yes, Screen for Goals of Care: Yes, Screen for Pain: Yes, If Pain Regimen Started, Initiate Bowel Regimen: Yes, Screen for Nausea/Vomitting: Yes - Labs CBC & Chem 7: 10/01/16 05:30 10/01/16 05:30 Labs: Laboratory Results - last 24 hr 09/30/16 10/01/16 10/01/16 09:50 05:30 05:30 WBC 3.1 L RBC 2.82 L Hgb 8.6 L Hct 26.2 L MCV 92.9 MCH 30.5 MCHC 32.8 RDW 18.2 H Plt Count 65 L MPV 9.6 Immature Gran % 1.0 Seg Neutrophils % 73.8 Lymphocytes % 14.2 Monocytes % 10.7 Eosinophils % 0.0 Basophils % 0.3 Neutrophils # 2.3 Lymphocytes # 0.4 L Monocytes # 0.3 Eosinophils # 0.0 Basophils # 0.0 Immature Plt Fraction 3.7 Sodium 143 Potassium 3.5 Chloride 112 H Carbon Dioxide 26 BUN 5 L Creatinine 0.47 L Est GFR ( Amer) > 60 Est GFR (Non-Af Amer) > 60 BUN/Creatinine Ratio 11 Glucose 77 Calculated Osmolality 292 Calcium 7.1 L Blood Type O POSITIVE Antibody Screen NEGATIVE Crossmatch See Detail - ABG Interpretation ABG results: PT/INR, D-dimer PT 12.8 Seconds (9.4-12.1) H 09/26/16 14:04 Consult Discharge Plan - Plan Referrals: Sendy Mauro, CARBIDER [Primary Care Provider] - 10/09/16 9:00 am <Liban Hall - Last Filed: 10/02/16 06:55> Date of Encounter: 10/02/16 - Time Spent With Patient Total time spent is greater than 50% in coordination of care (as documented) at patient's floor/unit and/or counseling patient: - Constitutional Vitals: Abnormal lab results WBC 2.0 K/mcL (4.3-11.1) L 10/02/16 04:03 RBC 2.68 M/mcL (4.19-5.50) L 10/02/16 04:03 Hgb 8.2 g/dL (12.9-16.9) L 10/02/16 04:03 Hct 25.1 % (37.5-50.1) L 10/02/16 04:03 RDW 19.0 % (11.5-14.5) H 10/02/16 04:03 Plt Count 48 K/mcL (140-400) L 10/02/16 04:03 Neutrophils # 1.3 K/mcL (1.6-8.9) L 10/02/16 04:03 Lymphocytes # 0.5 K/mcL (0.6-4.6) L 10/02/16 04:03 Platelet Estimate Marked Decrease (Normal) L 10/02/16 04:03 Anisocytosis 2+ (Not Present) A 09/27/16 06:20 Macrocytosis Present (Not Present) A 09/27/16 06:20 PT 12.8 Seconds (9.4-12.1) H 09/26/16 14:04 APTT 24.3 Seconds (26.0-36.0) L 09/26/16 14:04 Chloride 112 mEq/L (98-109) H 10/01/16 05:30 BUN 5 mg/dL (8-26) L 10/01/16 05:30 Creatinine 0.47 mg/dL (0.72-1.25) L 10/01/16 05:30 Calcium 7.1 mg/dL (8.6-10.8) L 10/01/16 05:30 Serum Total Protein 4.9 g/dL (6.0-8.3) L 09/27/16 05:04 Albumin 1.8 g/dL (3.5-5.0) L 09/27/16 05:04 Albumin/Globulin Ratio 0.6 (1.1-2.2) L 09/27/16 05:04 Ur Specific [place] > 1.030 (1.010-1.025) H 09/27/16 13:00 Urine Ketones Trace mg/dL (Negative) H 09/27/16 13:00 - Attending Attestation I examined this patient and my medical decision-making was reviewed with the Resident Physician. I agree with the documented findings, disposition and treatment plan as described except to the extent set forth below. - Labs CBC & Chem 7: 10/02/16 04:03 10/01/16 05:30 Labs: Laboratory Results - last 24 hr 10/02/16 04:03 WBC 2.0 L RBC 2.68 L Hgb 8.2 L Hct 25.1 L MCV 93.7 MCH 30.5 MCHC 33.0 RDW 19.0 H Plt Count 48 L MPV 11.2 Immature Gran % 0.9 Seg Neutrophils % 65.5 Lymphocytes % 23.9 Monocytes % 9.7 Eosinophils % 0.0 Basophils % 0.0 Neutrophils # 1.3 L Lymphocytes # 0.5 L Monocytes # 0.2 Eosinophils # 0.0 Basophils # 0.0 Platelet Estimate Marked Decrease L - ABG Interpretation ABG results: PT/INR, D-dimer PT 12.8 Seconds (9.4-12.1) H 09/26/16 14:04
[2016-10-01] MEDS: *HR* Methadone 5 MG TABLET PO SCH ×2 (10:21→20:55)
[2016-10-01] MEDS ORDERED: *HR* HYDROmorphone 20 MG/20 ML PCA IVC PRN ×2 (11:15→14:13)
--- NOTE | 2016-10-01 16:16 | Internal Med Progress Note ---
Date of Encounter: 10/01/16 Time of Encounter: 09:00 - Assessment and plan (1) Cancer associated pain Current Visit: Yes Status: Acute Assessment and plan: Acute on chronic, from the right upper extremity metastasis to the proximal radius. He was evaluated at [facility] on 09/17/2016- Dr. Fuentes. He recommended amputation of right upper extremity for pain control s/p R arm above elbow amputation. 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 Heparin is not placed that because of low platelet level. - Time Spent With Patient 25 - 35 minutes - Subjective Interval history: Patient is a 70-year-old male admitted for severe cancer associated pain on right arm. His past medical history is significant for lung cancer with bone metastasis, hypertension. Patient had right arm above elbow amputation 4 days ago. I saw and examined the patient today. day 4 s/p amputation. Complain of arm pain but less than before. 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 Palliativ care consult appreciated, plan is try to switch ACCOUNTS ADJUSTABLE CLERK to by mouth pain medication and discharge patient to home with home health. Patient will need a hospital bed upon discharge, for bed mobility related to weakness and right above elbow amputation. - Constitutional Vitals: Temp Pulse Resp BP Pulse Ox 98.3 F 83 20 117/75 95 10/01/16 15:27 10/01/16 15:53 10/01/16 15:27 10/01/16 15:27 10/01/16 15:53 General appearance: Present: mild distress, A&O X 3, pleasant - Head Head exam: Present: atraumatic, normocephalic - Eye Eye exam: Present: PERRL, conjuntiva pink, sclera anicteric Pupils: Present: PERRL - Neck Neck exam general surgery: Present: supple, trachea midline. Absent: lymphadenopathy - Respiratory Respiratory exam: Present: CTAB. Absent: accessory muscle use, rales, rhonchi, wheezes - Cardiovascular Cardiovascular exam: Present: RRR, +S1, +S2. Absent: diastolic murmur, gallop, rubs, systolic murmur - GI/Abdominal GI/Abdominal exam: Present: normal bowel sounds, soft, no peritoneal signs. Absent: distended, tenderness - Extremities Exam Extremities exam: Present: warm, radial pulses palpable and symetrical. Absent : calf tenderness, cyanotic, pedal edema Additional comments: Right above elbow amputation, well dressed - Neurological Exam Neurological exam: Present: CN II-XII intact, oriented X3, no focal deficits. Absent: pronater drift, facial droop, speech deficit - Skin Skin exam: Present: dry, intact Internal Medicine: Result - Labs CBC & Chem 7: 10/01/16 05:30 10/01/16 05:30 Labs: Short CBC 10/01/16 Range/Units 05:30 WBC 3.1 L (4.3-11.1) K/mcL Hgb 8.6 L (12.9-16.9) g/dL Hct 26.2 L (37.5-50.1) % Plt Count 65 L (140-400) K/mcL Neutrophils # 2.3 (1.6-8.9) K/mcL BMP 10/01/16 05:30 Sodium 143 Potassium 3.5 Chloride 112 H Carbon Dioxide 26 BUN 5 L Creatinine 0.47 L Glucose 77 Calcium 7.1 L - ABG Interpretation ABG results: PT/INR, D-dimer PT 12.8 Seconds (9.4-12.1) H 09/26/16 14:04 - VTE Documentation of Mechanical Device: Intermittent pneumatic compression device Consult Discharge Plan - Plan Referrals: Sendy Mauro MEDICAL EQUIPMENT TECHNICIAN [Primary Care Provider] - 10/09/16 9:00 am
--- NOTE | 2016-10-01 19:44 | Orthopedics Progress Note ---
Date of Encounter: 10/01/16 Time of Encounter: 19:41 Subjective Principal diagnosis: Metastatic lesion right arm Interval history: 09/29/2016. Patient is postop day #1 from right above elbow amputation. Patient had significant pain postop requiring a breakthrough nerve block by anesthesia as well as dosing with ketamine. Patient has been seen by palliative care with methadone added to his pain management protocol. At this time the patient is resting comfortably and is sleeping. I had an extended discussion with his daughter regarding his postop course. He initially appeared to have some questionable phantom pain though it appears that this now may really be postoperative pain from the amputation itself. Vital signs are stable, patient is afebrile. Dressings show only minor serosanguineous drainage along the medial aspect of the stump. Hemoglobin is 6.3. White blood cell count is 3.9. Platelets are relatively stable at 79. Impression: POD #1 right above elbow amputation for palliative treatment of metastatic lesion Recommendation: Continue with pain management per medicine. We will evaluate surgical incision in 24 hours. We will try to elevate stump if possible. 09/30/2016. Patient is postop day 2 from right above elbow amputation. Pain has improved significantly over the past 24 hours. It is unsure if this is related to his change in medications or the amputation itself. Patient is resting comfortably at this time but awakens. Vital signs are stable. He is afebrile. Dressings were taken down. There is only some serosanguineous drainage. This skin edges are all healthy and viable. Edema appears to be somewhat improved proximally. Impression: POD #2 right above elbow amputation Recommendation: Dressing change was completed today. I will perform any dressing changes. A stump wrap type resting was applied with Evelio wrap today. Patient can move stump as able. Orthopedic status is stable. 10/01/2016. Patient postop day #3 right above elbow amputation. He has made significant strides in pain management and control. He is being weaned off medications. He clinically appears much more comfortable. Vital signs are stable he is afebrile. Hemoglobin is 8.6. White cell count is 3.1 platelets are 65. Dressing is clean dry and intact. Pain is elicited with compression or palpation of the stump. He is moving his shoulder. Impression: POD #3 right above elbow amputation Recommendation: Change dressings tomorrow. Encourage patient to use an move shoulder and arm as tolerated. Orthopedic status is stable. If patient is to be discharged soon we will just need to follow up with me in about the 2 week's time for wound evaluation and clip removal. Discuss his findings at length with the patient and were very pleased with the success of the surgery thus far. Objective Vital signs: Vital Signs Temp Pulse Resp BP Pulse Ox 10/01/16 17:45 84 96 10/01/16 15:53 83 95 10/01/16 15:27 98.3 F 85 20 117/75 95 10/01/16 14:48 86 94 10/01/16 14:32 102 93 10/01/16 13:21 109 94 10/01/16 11:27 98.3 F 82 19 102/57 94 10/01/16 10:23 96 93 10/01/16 08:01 98 95 10/01/16 07:24 98.3 F 98 20 142/91 93 10/01/16 04:26 80 16 96 10/01/16 04:23 80 16 111/68 97 10/01/16 00:49 98.2 F 96 16 117/60 96 10/01/16 00:46 80 09/30/16 21:11 98.2 F 91 16 102/45 95 Intake and Output 10/01/16 10/01/16 10/01/16 07:59 15:59 23:59 Intake Total 875 / 875 0 / 0 Output Total 900 / 900 125 / 125 200 / 200 Balance -900 / -900 750 / 750 -200 / -200 Intake: IV Fluids 475 / 475 Oral 400 / 400 0 / 0 Output: Urine 125 / 125 200 / 200 Urethral (Bell) 125 / 125 Catheter 900 / 900 Other: Meal Lunch Dinner Percent of Meal Consumed 40% 0% Stool Size Large Stool Consistency loose soft Stool Color Brown # Bowel Movements 0 Weight 61.2 kg Patient Weight 10/01/16 23:59 Weight 61.2 kg - Labs CBC & BMP: 10/01/16 05:30 10/01/16 05:30 Labs: Abnormal lab results WBC 3.1 K/mcL (4.3-11.1) L 10/01/16 05:30 RBC 2.82 M/mcL (4.19-5.50) L 10/01/16 05:30 Hgb 8.6 g/dL (12.9-16.9) L 10/01/16 05:30 Hct 26.2 % (37.5-50.1) L 10/01/16 05:30 RDW 18.2 % (11.5-14.5) H 10/01/16 05:30 Plt Count 65 K/mcL (140-400) L 10/01/16 05:30 Lymphocytes # 0.4 K/mcL (0.6-4.6) L 10/01/16 05:30 Platelet Estimate Decreased (Normal) L 09/27/16 06:20 Anisocytosis 2+ (Not Present) A 09/27/16 06:20 Macrocytosis Present (Not Present) A 09/27/16 06:20 PT 12.8 Seconds (9.4-12.1) H 09/26/16 14:04 APTT 24.3 Seconds (26.0-36.0) L 09/26/16 14:04 Chloride 112 mEq/L (98-109) H 10/01/16 05:30 BUN 5 mg/dL (8-26) L 10/01/16 05:30 Creatinine 0.47 mg/dL (0.72-1.25) L 10/01/16 05:30 Calcium 7.1 mg/dL (8.6-10.8) L 10/01/16 05:30 Serum Total Protein 4.9 g/dL (6.0-8.3) L 09/27/16 05:04 Albumin 1.8 g/dL (3.5-5.0) L 09/27/16 05:04 Albumin/Globulin Ratio 0.6 (1.1-2.2) L 09/27/16 05:04 Ur Specific [place] > 1.030 (1.010-1.025) H 09/27/16 13:00 Urine Ketones Trace mg/dL (Negative) H 09/27/16 13:00 - VTE Documentation of Mechanical Device: Intermittent pneumatic compression device Consult Discharge Plan - Plan Referrals: Sendy Mauro, RFID SPECIALIST [Primary Care Provider] - 10/09/16 9:00 am
[2016-10-02] MEDS ORDERED: 0.9 % Sodium Chloride 500 ML ONE ×2 (00:09→17:09)
[2016-10-02 04:22] LABS: Immature Granulocytes % 0.9 % (0-4)
[2016-10-02 04:24] LABS: Lymphocytes % 23.9 %; Mean Corpuscular Hemoglobin 30.5 pg (28.0-33.3); Mean Platelet Volume 11.2 fL (9.4-12.4); Monocytes % 9.7 %; Segmented Neutrophils % 65.5 %
[2016-10-02 04:56] LABS: Platelet Estimate Marked Decrease (Normal)
[2016-10-02 06:29] LABS: Hemoglobin 8.2 g/dL (12.9-16.9); Lymphocytes # 0.5 K/mcL (0.6-4.6); Monocytes # 0.2 K/mcL (0.0-1.3); Neutrophils # 1.3 K/mcL (1.6-8.9); Red Blood Count 2.68 M/mcL (4.19-5.50)
[2016-10-02 06:30] LABS: Hematocrit 25.1 % (37.5-50.1); Mean Corpuscular Volume 93.7 fL (83.0-100.0)
[2016-10-02 06:31] LABS: Platelet Count 48 K/mcL (140-400)
[2016-10-02] MEDS: Gabapentin 300 MG CAPSULE PO SCH ×3 (07:28→21:25)
[2016-10-02] MEDS: Gabapentin 400 MG CAPSULE PO SCH ×3 (07:29→21:25)
[2016-10-02] MEDS: Sennosides/Docusate Sodium TABLET PO SCH (07:29)
[2016-10-02] MEDS: *HR* LORazepam 1 MG TABLET PO SCH (07:29)
[2016-10-02] MEDS: Magnesium Oxide 400 MG TABLET PO SCH (07:30)
[2016-10-02 07:41] LABS: BUN/Creatinine Ratio 15 (6-26); Blood Urea Nitrogen 7 mg/dL (8-26); Calcium 7.1 mg/dL (8.6-10.8); Carbon Dioxide 29 mEq/L (19-29); Chloride 109 mEq/L (98-109); Glucose 74 mg/dL (70-99); Osmolality,Calculated 289 (280-300); Potassium 3.3 mEq/L (3.5-4.5); Sodium 141 mEq/L (136-145); eGFR For African Americans > 60 (> 60); eGFR For Non-African Americans > 60 (> 60)
--- NOTE | 2016-10-02 08:40 | Oncology Inp Progress Note ---
Date of Encounter: 10/02/16 Time of Encounter: 08:38 (1) Cancer associated pain Current Visit: Yes Status: Acute Assessment and plan: Post right above elbow habitation. His pain is under better control. 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 Completing cycle 6 of [address] chest with contrast 09/26/2016 showed a new 3 cm x 4 cm mass which is just above the cavitary mass and this is new since June 2016 cavitary masses stable at 3 cm. There is also a 2 cm right hilar lymph node which has developed since last scan Enlarging tissue metastasis right posterior paraspinal subcutaneous area 3 cm increased from 1.[address] abdomen and pelvis same time showed decrease in the right adrenal mass stable lytic lesion right iliac bone and right femur otherwise abdomen negative His next generation sequencing showed no actionable mutations. EGFR and ALK negative. He failed immune checkpoint inhibitor Once he is better from his amputation we will consider palliative radiation to the right chest paraspinal subcutaneous nodule The response to second line chemotherapy is not great. May consider single agent Gemzar in the future as clinically indicated. Also may add Ramucirumab (3) Anemia Current Visit: Yes Status: Acute Assessment and plan: Had few transfusions during this admission. Hemoglobin is currently stable around 8 Qualifiers: Anemia type: other cause Other causes of anemia: antineoplastic chemotherapy Qualified Code(s): D64.81 - Anemia due to antineoplastic chemotherapy (4) Hypomagnesemia Current Visit: Yes Status: Acute Assessment and plan: His magnesium continued to be low at 1.4. He has received magnesium sulfate 2 g IV the past. Magnesium improved to 1.7 on 09/26/2016 Persistent hypercalcemia calcium between 7 and 8. This could be related to Denosumab which he received 2 doses Oncology: Subj Interval history: She required pain controlled with nerve block and ketamine immediate postop period but his pain control is adequate now. He is on long-acting methadone and may be weaned off Dilaudid pump slowly. More alert and oriented - Constitutional Vitals: Vital Signs Temp Pulse Resp BP Pulse Ox 10/02/16 07:40 93 10/02/16 07:19 98.3 F 74 16 112/71 93 10/02/16 04:10 66 10/02/16 03:41 98.0 F 67 16 118/66 95 10/01/16 23:55 73 10/01/16 23:53 98.2 F 72 16 119/66 95 10/01/16 20:58 88 10/01/16 20:15 98.0 F 79 16 125/74 97 10/01/16 17:45 84 96 10/01/16 15:53 83 95 10/01/16 15:27 98.3 F 85 20 117/75 95 10/01/16 14:48 86 94 10/01/16 14:32 102 93 10/01/16 13:21 109 94 10/01/16 11:27 98.3 F 82 19 102/57 94 10/01/16 10:23 96 93 Intake and Output 10/01/16 10/02/16 10/02/16 23:59 07:59 15:59 Intake Total 0 / 0 50 / 50 Output Total 200 / 200 300 / 300 Balance -200 / -200 -250 / -250 Intake: Oral 0 / 0 50 / 50 Output: Urine 200 / 200 300 / 300 Other: Meal Dinner Percent of Meal Consumed 0% Stool Size Large Stool Consistency loose soft Stool Color Brown Weight 61.9 kg Patient Weight 10/02/16 23:59 Weight 61.9 kg Exam: GENERAL: Alert and oriented, well appearing. Mental Status: Affect appropriate for circumstances HEENT: Sclerae anicteric. No mucositis or thrush. No other oral or pharyngeal lesions or erythema. Skin: No rashes or petechiae. No evidence of skin malignancy Lymph nodes: No cervical, supraclavicular, axillary, or inguinal adenopathy. Lungs: Clear to auscultation and percussion bilaterally. Cardiovascular: Regular rate and rhythm. No gallops, murmurs, or rubs. Abdomen: Soft, nontender; no organomegaly or masses palpable. Extremities: No edema. No calf swelling or tenderness. No joint deformity. Neurologic: Alert, cranial nerves II-XII intact; normal gait; no focal weakness or sensory abnormalities Right above elbow amputation. No bleeding Oncology: Obj Data - Labs CBC & Chem 7: 10/02/16 04:03 10/02/16 04:03 Labs: Laboratory Results - last 24 hr 10/02/16 10/02/16 04:03 04:03 WBC 2.0 L RBC 2.68 L Hgb 8.2 L Hct 25.1 L MCV 93.7 MCH 30.5 MCHC 33.0 RDW 19.0 H Plt Count 48 L MPV 11.2 Immature Gran % 0.9 Seg Neutrophils % 65.5 Lymphocytes % 23.9 Monocytes % 9.7 Eosinophils % 0.0 Basophils % 0.0 Neutrophils # 1.3 L Lymphocytes # 0.5 L Monocytes # 0.2 Eosinophils # 0.0 Basophils # 0.0 Platelet Estimate Marked Decrease L Sodium 141 Potassium 3.3 L Chloride 109 Carbon Dioxide 29 BUN 7 L Creatinine 0.47 L Est GFR ( Amer) > 60 Est GFR (Non-Af Amer) > 60 BUN/Creatinine Ratio 15 Glucose 74 Calculated Osmolality 289 Calcium 7.1 L - ABG Interpretation ABG results: PT/INR, D-dimer PT 12.8 Seconds (9.4-12.1) H 09/26/16 14:04 Consult Discharge Plan - Plan Referrals: Sendy Mauro, CRATE BUILDER [Primary Care Provider] - 10/09/16 9:00 am
--- NOTE | 2016-10-02 08:47 | Palliative Progress Note ---
<Joselo Zheng - Last Filed: 10/02/16 08:44> Date of Encounter: 10/02/16 Time of Encounter: 08:45 - Assessment and plan (1) Goals of care, counseling/discussion Current Visit: Yes Status: Acute Assessment and plan: Keep code status at DNR-CCA/DNI; no plans for hospice Social work consulted for home health, hospital bed, commode, and shower chair (2) Cancer associated pain Current Visit: Yes Status: Acute Assessment and plan: Pain continues to improve today; continue oral analgesia with Methadone 2.5 mg BID and Gabapentin 1000 mg TID He has tolerated decreasing doses of Dilaudid pain pump, will shut off continuous infusion today and keep IV PRN for breakthrough Plan on stopping all IV analgesia tomorrow to see if patient can tolerate being solely on oral medications prior to discharge Spoke to patient's radiation oncologist, Dr. Auguste at [facility], who agreed to manage the patient's Methadone prescription as outpatient - Time Spent With Patient Total time spent is greater than 50% in coordination of care (as documented) at patient's floor/unit and/or counseling patient: - Subjective Interval history: Pt seen and examined with at beside. He states that the pain in his right shoulder still comes and goes especially with movement, but overall his pain is better than yesterday. He did have a large bowel movement yesterday for the first time since surgery and continues to have no issues with nausea, vomiting, urinating. - Constitutional Vitals: Abnormal lab results WBC 2.0 K/mcL (4.3-11.1) L 10/02/16 04:03 RBC 2.68 M/mcL (4.19-5.50) L 10/02/16 04:03 Hgb 8.2 g/dL (12.9-16.9) L 10/02/16 04:03 Hct 25.1 % (37.5-50.1) L 10/02/16 04:03 RDW 19.0 % (11.5-14.5) H 10/02/16 04:03 Plt Count 48 K/mcL (140-400) L 10/02/16 04:03 Neutrophils # 1.3 K/mcL (1.6-8.9) L 10/02/16 04:03 Lymphocytes # 0.5 K/mcL (0.6-4.6) L 10/02/16 04:03 Platelet Estimate Marked Decrease (Normal) L 10/02/16 04:03 Anisocytosis 2+ (Not Present) A 09/27/16 06:20 Macrocytosis Present (Not Present) A 09/27/16 06:20 PT 12.8 Seconds (9.4-12.1) H 09/26/16 14:04 APTT 24.3 Seconds (26.0-36.0) L 09/26/16 14:04 Potassium 3.3 mEq/L (3.5-4.5) L 10/02/16 04:03 BUN 7 mg/dL (8-26) L 10/02/16 04:03 Creatinine 0.47 mg/dL (0.72-1.25) L 10/02/16 04:03 Calcium 7.1 mg/dL (8.6-10.8) L 10/02/16 04:03 Serum Total Protein 4.9 g/dL (6.0-8.3) L 09/27/16 05:04 Albumin 1.8 g/dL (3.5-5.0) L 09/27/16 05:04 Albumin/Globulin Ratio 0.6 (1.1-2.2) L 09/27/16 05:04 Ur Specific [place] > 1.030 (1.010-1.025) H 09/27/16 13:00 Urine Ketones Trace mg/dL (Negative) H 09/27/16 13:00 General appearance: Present: cooperative, thin - Head Head exam: Present: atraumatic, normal inspection, normocephalic - Eye Eye exam: Present: EOMI, sclera anicteric - Respiratory Respiratory exam: Present: CTAB - Cardiovascular Cardiovascular exam: Present: RRR, +S1, +S2 - GI/Abdominal GI/Abdominal exam: Present: normal bowel sounds, soft. Absent: tenderness - Extremities Exam Additional comments: right above elbow amputation, dressing is CDI - Neurological Exam Neurological exam: Present: alert. Absent: facial droop, speech deficit Palliative Quality Palliative Quality: Screen for Code Status: Yes, Screen for Goals of Care: Yes, Screen for Pain: Yes, If Pain Regimen Started, Initiate Bowel Regimen: Yes, Screen for Nausea/Vomitting: Yes - Labs CBC & Chem 7: 10/02/16 04:03 04/26/17 04:03 Labs: Laboratory Results - last 24 hr 10/02/16 10/02/16 04:03 04:03 WBC 2.0 L RBC 2.68 L Hgb 8.2 L Hct 25.1 L MCV 93.7 MCH 30.5 MCHC 33.0 RDW 19.0 H Plt Count 48 L MPV 11.2 Immature Gran % 0.9 Seg Neutrophils % 65.5 Lymphocytes % 23.9 Monocytes % 9.7 Eosinophils % 0.0 Basophils % 0.0 Neutrophils # 1.3 L Lymphocytes # 0.5 L Monocytes # 0.2 Eosinophils # 0.0 Basophils # 0.0 Platelet Estimate Marked Decrease L Sodium 141 Potassium 3.3 L Chloride 109 Carbon Dioxide 29 BUN 7 L Creatinine 0.47 L Est GFR ( Amer) > 60 Est GFR (Non-Af Amer) > 60 BUN/Creatinine Ratio 15 Glucose 74 Calculated Osmolality 289 Calcium 7.1 L - ABG Interpretation ABG results: PT/INR, D-dimer PT 12.8 Seconds (9.4-12.1) H 09/26/16 14:04 Consult Discharge Plan - Plan Referrals: Sendy Mauro, HTML DEVELOPER [Primary Care Provider] - 10/09/16 9:00 am <Liban Hall - Last Filed: 10/02/16 09:47> Date of Encounter: 10/02/16 - Time Spent With Patient Total time spent is greater than 50% in coordination of care (as documented) at patient's floor/unit and/or counseling patient: - Constitutional Vitals: Abnormal lab results WBC 2.0 K/mcL (4.3-11.1) L 10/02/16 04:03 RBC 2.68 M/mcL (4.19-5.50) L 10/02/16 04:03 Hgb 8.2 g/dL (12.9-16.9) L 10/02/16 04:03 Hct 25.1 % (37.5-50.1) L 10/02/16 04:03 RDW 19.0 % (11.5-14.5) H 10/02/16 04:03 Plt Count 48 K/mcL (140-400) L 10/02/16 04:03 Neutrophils # 1.3 K/mcL (1.6-8.9) L 10/02/16 04:03 Lymphocytes # 0.5 K/mcL (0.6-4.6) L 10/02/16 04:03 Platelet Estimate Marked Decrease (Normal) L 10/02/16 04:03 Anisocytosis 2+ (Not Present) A 09/27/16 06:20 Macrocytosis Present (Not Present) A 09/27/16 06:20 PT 12.8 Seconds (9.4-12.1) H 09/26/16 14:04 APTT 24.3 Seconds (26.0-36.0) L 09/26/16 14:04 Potassium 3.3 mEq/L (3.5-4.5) L 10/02/16 04:03 BUN 7 mg/dL (8-26) L 10/02/16 04:03 Creatinine 0.47 mg/dL (0.72-1.25) L 10/02/16 04:03 Calcium 7.1 mg/dL (8.6-10.8) L 10/02/16 04:03 Serum Total Protein 4.9 g/dL (6.0-8.3) L 09/27/16 05:04 Albumin 1.8 g/dL (3.5-5.0) L 09/27/16 05:04 Albumin/Globulin Ratio 0.6 (1.1-2.2) L 09/27/16 05:04 Ur Specific [place] > 1.030 (1.010-1.025) H 09/27/16 13:00 Urine Ketones Trace mg/dL (Negative) H 09/27/16 13:00 - Attending Attestation I examined this patient and my medical decision-making was reviewed with the Resident Physician. I agree with the documented findings, disposition and treatment plan as described except to the extent set forth below. - Labs CBC & Chem 7: 10/02/16 04:03 10/02/16 04:03 Labs: Laboratory Results - last 24 hr 10/02/16 10/02/16 04:03 04:03 WBC 2.0 L RBC 2.68 L Hgb 8.2 L Hct 25.1 L MCV 93.7 MCH 30.5 MCHC 33.0 RDW 19.0 H Plt Count 48 L MPV 11.2 Immature Gran % 0.9 Seg Neutrophils % 65.5 Lymphocytes % 23.9 Monocytes % 9.7 Eosinophils % 0.0 Basophils % 0.0 Neutrophils # 1.3 L Lymphocytes # 0.5 L Monocytes # 0.2 Eosinophils # 0.0 Basophils # 0.0 Platelet Estimate Marked Decrease L Sodium 141 Potassium 3.3 L Chloride 109 Carbon Dioxide 29 BUN 7 L Creatinine 0.47 L Est GFR ( Amer) > 60 Est GFR (Non-Af Amer) > 60 BUN/Creatinine Ratio 15 Glucose 74 Calculated Osmolality 289 Calcium 7.1 L - ABG Interpretation ABG results: PT/INR, D-dimer PT 12.8 Seconds (9.4-12.1) H 09/26/16 14:04
[2016-10-02] MEDS: *HR* Methadone 5 MG TABLET PO SCH ×2 (10:02→21:25)
[2016-10-02] MEDS ORDERED: *HR* HYDROmorphone 20 MG/20 ML PCA IVC PRN (10:18)
[2016-10-02] MEDS ORDERED: Sennosides/Docusate Sodium TABLET PO PRN (15:04)
--- NOTE | 2016-10-02 16:50 | Internal Med Progress Note ---
Date of Encounter: 10/02/16 Time of Encounter: 10:00 - Assessment and plan (1) Cancer associated pain Current Visit: Yes Status: Acute Assessment and plan: Acute on chronic, from the right upper extremity metastasis to the proximal radius. He was evaluated at [facility] on 09/17/2016- Dr. Fuentes. He recommended amputation of right upper extremity for pain control s/p R arm above elbow amputation. POD 5 Pain much more controlled now Continue Dilaudid LEATHER CASE FINISHER Attempt to increase po meds and titrate off dilaudid IV Palliative care on case (2) Squamous cell carcinoma of left lung Current Visit: Yes Status: Chronic Assessment and plan: Per Oncology, patient is responding to palliative chemo Onc consult appreciated Ensure DVT prophylaxis with heparin (3) Constipation due to opioid therapy Current Visit: No Status: Resolved Assessment and plan: Will continue stool softener treatment. Had BM today. (4) DVT prophylaxis Current Visit: Yes Status: Acute Assessment and plan: EPCD. Heparin is not placed that because of low platelet level. - Time Spent With Patient 25 - 35 minutes - Subjective Interval history: Patient is a 70-year-old male admitted for severe cancer associated pain on right arm. His past medical history is significant for lung cancer with bone metastasis, hypertension. Patient had right arm above elbow amputation. I saw and examined the patient today. day 5 s/p amputation. Complain of arm pain but less than before. On by mouth gabapentin and methadone, plus hydromorphone LEATHER CASE FINISHER. Palliativ care consult appreciated, plan is try to switch LEATHER CASE FINISHER to by mouth pain medication and discharge patient to home with home health. - Constitutional Vitals: Temp Pulse Resp BP Pulse Ox 98.3 F 68 17 105/72 100 10/02/16 16:05 10/02/16 11:35 10/02/16 16:05 10/02/16 16:05 10/02/16 16:05 General appearance: Present: mild distress, A&O X 3, pleasant - Head Head exam: Present: atraumatic, normocephalic - Eye Eye exam: Present: PERRL, conjuntiva pink, sclera anicteric Pupils: Present: PERRL - Neck Neck exam general surgery: Present: supple, trachea midline. Absent: lymphadenopathy - Respiratory Respiratory exam: Present: CTAB. Absent: accessory muscle use, rales, rhonchi, wheezes - Cardiovascular Cardiovascular exam: Present: RRR, +S1, +S2. Absent: diastolic murmur, gallop, rubs, systolic murmur - GI/Abdominal GI/Abdominal exam: Present: normal bowel sounds, soft, no peritoneal signs. Absent: distended, tenderness - Extremities Exam Extremities exam: Present: warm, radial pulses palpable and symetrical. Absent : calf tenderness, cyanotic, pedal edema Additional comments: Rt above elbow amputation. - Neurological Exam Neurological exam: Present: CN II-XII intact, oriented X3, no focal deficits. Absent: pronater drift, facial droop, speech deficit - Skin Skin exam: Present: dry, intact Internal Medicine: Result - Labs CBC & Chem 7: 10/02/16 04:03 10/02/16 04:03 Labs: Short CBC 10/02/16 Range/Units 04:03 WBC 2.0 L (4.3-11.1) K/mcL Hgb 8.2 L (12.9-16.9) g/dL Hct 25.1 L (37.5-50.1) % Plt Count 48 L (140-400) K/mcL Neutrophils # 1.3 L (1.6-8.9) K/mcL BMP 10/02/16 04:03 Sodium 141 Potassium 3.3 L Chloride 109 Carbon Dioxide 29 BUN 7 L Creatinine 0.47 L Glucose 74 Calcium 7.1 L - ABG Interpretation ABG results: PT/INR, D-dimer PT 12.8 Seconds (9.4-12.1) H 09/26/16 14:04 - VTE Documentation of Mechanical Device: Intermittent pneumatic compression device Consult Discharge Plan - Plan Referrals: Sendy Mauro CNP [Primary Care Provider] - 10/09/16 9:00 am
[2016-10-02] MEDS: 0.9 % Sodium Chloride 500 ML ONE (17:16)
--- NOTE | 2016-10-02 22:33 | Orthopedics Progress Note ---
Date of Encounter: 10/02/16 Time of Encounter: 22:30 Subjective Principal diagnosis: Metastatic lesion right arm Interval history: 09/29/2016. Patient is postop day #1 from right above elbow amputation. Patient had significant pain postop requiring a breakthrough nerve block by anesthesia as well as dosing with ketamine. Patient has been seen by palliative care with methadone added to his pain management protocol. At this time the patient is resting comfortably and is sleeping. I had an extended discussion with his daughter regarding his postop course. He initially appeared to have some questionable phantom pain though it appears that this now may really be postoperative pain from the amputation itself. Vital signs are stable, patient is afebrile. Dressings show only minor serosanguineous drainage along the medial aspect of the stump. Hemoglobin is 6.3. White blood cell count is 3.9. Platelets are relatively stable at 79. Impression: POD #1 right above elbow amputation for palliative treatment of metastatic lesion Recommendation: Continue with pain management per medicine. We will evaluate surgical incision in 24 hours. We will try to elevate stump if possible. 09/30/2016. Patient is postop day 2 from right above elbow amputation. Pain has improved significantly over the past 24 hours. It is unsure if this is related to his change in medications or the amputation itself. Patient is resting comfortably at this time but awakens. Vital signs are stable. He is afebrile. Dressings were taken down. There is only some serosanguineous drainage. This skin edges are all healthy and viable. Edema appears to be somewhat improved proximally. Impression: POD #2 right above elbow amputation Recommendation: Dressing change was completed today. I will perform any dressing changes. A stump wrap type resting was applied with Evelio wrap today. Patient can move stump as able. Orthopedic status is stable. 10/01/2016. Patient postop day #3 right above elbow amputation. He has made significant strides in pain management and control. He is being weaned off medications. He clinically appears much more comfortable. Vital signs are stable he is afebrile. Hemoglobin is 8.6. White cell count is 3.1 platelets are 65. Dressing is clean dry and intact. Pain is elicited with compression or palpation of the stump. He is moving his shoulder. Impression: POD #3 right above elbow amputation Recommendation: Change dressings tomorrow. Encourage patient to use an move shoulder and arm as tolerated. Orthopedic status is stable. If patient is to be discharged soon we will just need to follow up with me in about the 2 week's time for wound evaluation and clip removal. Discuss his findings at length with the patient and were very pleased with the success of the surgery thus far. 10/02/2016. Patient is postop day #4 right above elbow amputation. He continues to improve daily. He appears much less anxious and much more comfortable. He is using his shoulder of much easier. Vital signs remained stable he is afebrile. Hemoglobin is relatively stable at 8.2. White cell count has dropped a bit to 2.0. Platelets also had dropped to 48. Clinically there is no signs of bleeding from his amputation site. Skin edges are viable. Edema has decreased significantly in the past 48 hours. Impression: POD #4 right above elbow amputation Recommendation: Dressing change performed today. Predominantly using Evelio wrap as a stump [employer] law clerk. I instructed the patient to do desensitizing manipulation of the stump with his left arm and continue to work his shoulder. Orthopedic status remains stable. Objective Vital signs: Vital Signs Temp Pulse Resp BP Pulse Ox 10/02/16 20:36 98.5 F 80 16 127/94 97 10/02/16 16:05 98.3 F 17 105/72 100 10/02/16 11:35 97.6 F 68 16 103/64 99 10/02/16 11:10 74 16 112/71 93 10/02/16 07:40 93 10/02/16 07:19 98.3 F 74 16 112/71 93 10/02/16 04:10 66 10/02/16 03:41 98.0 F 67 16 118/66 95 10/01/16 23:55 73 10/01/16 23:53 98.2 F 72 16 119/66 95 Intake and Output 10/02/16 10/02/16 10/02/16 07:59 15:59 23:59 Intake Total 50 / 50 0 / 0 Output Total 300 / 300 200 / 200 Balance -250 / -250 0 / 0 -200 / -200 Intake: Oral 50 / 50 0 / 0 Output: Urine 300 / 300 200 / 200 Other: Meal Breakfast Dinner Percent of Meal Consumed 0% 5% Weight 61.9 kg Patient Weight 10/02/16 23:59 Weight 61.9 kg - Labs CBC & BMP: 10/02/16 04:03 10/02/16 04:03 Labs: Abnormal lab results WBC 2.0 K/mcL (4.3-11.1) L 10/02/16 04:03 RBC 2.68 M/mcL (4.19-5.50) L 10/02/16 04:03 Hgb 8.2 g/dL (12.9-16.9) L 10/02/16 04:03 Hct 25.1 % (37.5-50.1) L 10/02/16 04:03 RDW 19.0 % (11.5-14.5) H 10/02/16 04:03 Plt Count 48 K/mcL (140-400) L 10/02/16 04:03 Neutrophils # 1.3 K/mcL (1.6-8.9) L 10/02/16 04:03 Lymphocytes # 0.5 K/mcL (0.6-4.6) L 10/02/16 04:03 Platelet Estimate Marked Decrease (Normal) L 10/02/16 04:03 Anisocytosis 2+ (Not Present) A 09/27/16 06:20 Macrocytosis Present (Not Present) A 09/27/16 06:20 PT 12.8 Seconds (9.4-12.1) H 09/26/16 14:04 APTT 24.3 Seconds (26.0-36.0) L 09/26/16 14:04 Potassium 3.3 mEq/L (3.5-4.5) L 10/02/16 04:03 BUN 7 mg/dL (8-26) L 10/02/16 04:03 Creatinine 0.47 mg/dL (0.72-1.25) L 10/02/16 04:03 Calcium 7.1 mg/dL (8.6-10.8) L 10/02/16 04:03 Serum Total Protein 4.9 g/dL (6.0-8.3) L 09/27/16 05:04 Albumin 1.8 g/dL (3.5-5.0) L 09/27/16 05:04 Albumin/Globulin Ratio 0.6 (1.1-2.2) L 09/27/16 05:04 Ur Specific [place] > 1.030 (1.010-1.025) H 09/27/16 13:00 Urine Ketones Trace mg/dL (Negative) H 09/27/16 13:00 - VTE Documentation of Mechanical Device: Intermittent pneumatic compression device Consult Discharge Plan - Plan Referrals: Sendy Mauro CNP [Primary Care Provider] - 10/09/16 9:00 am
[2016-10-03 05:20] LABS: Hematocrit 24.9 % (37.5-50.1); Hemoglobin 8.2 g/dL (12.9-16.9); Mean Corpuscular HGB Conc 32.9 g/dL (31.6-35.5); Mean Corpuscular Hemoglobin 30.6 pg (28.0-33.3); Mean Corpuscular Volume 92.9 fL (83.0-100.0); Mean Platelet Volume 10.3 fL (9.4-12.4); Red Blood Count 2.68 M/mcL (4.19-5.50); Red Cell Distribution Width 17.8 % (11.5-14.5)
[2016-10-03 05:34] LABS: BUN/Creatinine Ratio 11 (6-26); Blood Urea Nitrogen 5 mg/dL (8-26); Calcium 7.2 mg/dL (8.6-10.8); Carbon Dioxide 27 mEq/L (19-29); Chloride 110 mEq/L (98-109); Glucose 79 mg/dL (70-99); Osmolality,Calculated 288 (280-300); Potassium 3.6 mEq/L (3.5-4.5); Sodium 141 mEq/L (136-145); eGFR For African Americans > 60 (> 60); eGFR For Non-African Americans > 60 (> 60)
[2016-10-03 05:57] LABS: Platelet Count 51 K/mcL (140-400)
[2016-10-03 06:49] LABS: Lymphocytes # 0.3 K/mcL (0.6-4.6); Monocytes # 0.2 K/mcL (0.0-1.3); Neutrophils # 1.3 K/mcL (1.6-8.9)
[2016-10-03 06:50] LABS: Anisocytosis 1+ (Not Present); Macrocytosis Present (Not Present); Microcytosis Present (Not Present); Ovalocytes 1+ (Not Present); Platelet Estimate Decreased (Normal)
[2016-10-03 06:51] LABS: Tear Drop Cells 1+ (Not Present)
[2016-10-03 06:52] LABS: Large Platelets Present (Not Present)
[2016-10-03] MEDS ORDERED: 0.9 % Sodium Chloride 500 ML ONE (09:18)
--- NOTE | 2016-10-03 09:18 | Palliative Progress Note ---
<Usman Johnson - Last Filed: 10/03/16 11:39> Date of Encounter: 10/03/16 Time of Encounter: 09:13 - Assessment and plan (1) Goals of care, counseling/discussion Current Visit: Yes Status: Acute Assessment and plan: CODE STATUS: DNRCCA/DNI. Plans for discharge with [facility]. No plans for hospice at this time. Social work ensuring hospital bed, commode, and shower chair. Will adjust pain medications in attempt to discharge tomorrow. (2) Cancer associated pain Current Visit: Yes Status: Acute Assessment and plan: The patients pain continues to significantly improve. Recommendations: - Continue Methadone - Continue Gabapentin 1000mg TID - Stop Dilaudid DROP FORGER - PRN Dilaudid IV - Time Spent With Patient Total time spent is greater than 50% in coordination of care (as documented) at patient's floor/unit and/or counseling patient: - Subjective Interval history: Continuous dilaudid turned off last evening. Pt doing well. Using 1-1.5 mg every 4 hours. Pt states pain is there and it hurts but is not as sharp or severe. States his family continues to tell him how well he is doing. at bedside stating significant improvement over the last several days. Pt continues to have several emotional breakthdowns throughout the day that are associated with increase in amount of visitors. Pt has noted several episodes of feeling "down" about the loss of his arm. Pt was disappointed that discharge did not happen yesterday but understands there is still a few more steps to ensuring pain management upon discharge. - Constitutional Vitals: Abnormal lab results WBC 1.9 K/mcL (4.3-11.1) L 10/03/16 05:00 RBC 2.68 M/mcL (4.19-5.50) L 10/03/16 05:00 Hgb 8.2 g/dL (12.9-16.9) L 10/03/16 05:00 Hct 24.9 % (37.5-50.1) L 10/03/16 05:00 RDW 17.8 % (11.5-14.5) H 10/03/16 05:00 Plt Count 51 K/mcL (140-400) L 10/03/16 05:00 Neutrophils # 1.3 K/mcL (1.6-8.9) L 10/03/16 05:00 Lymphocytes # 0.3 K/mcL (0.6-4.6) L 10/03/16 05:00 Platelet Estimate Decreased (Normal) L 10/03/16 05:00 Large Platelets Present (Not Present) A 10/03/16 05:00 Anisocytosis 1+ (Not Present) A 10/03/16 05:00 Microcytosis Present (Not Present) A 10/03/16 05:00 Macrocytosis Present (Not Present) A 10/03/16 05:00 Tear Drop Cells 1+ (Not Present) A 10/03/16 05:00 Ovalocytes 1+ (Not Present) A 10/03/16 05:00 PT 12.8 Seconds (9.4-12.1) H 09/26/16 14:04 APTT 24.3 Seconds (26.0-36.0) L 09/26/16 14:04 Chloride 110 mEq/L (98-109) H 10/03/16 05:00 BUN 5 mg/dL (8-26) L 10/03/16 05:00 Creatinine 0.46 mg/dL (0.72-1.25) L 10/03/16 05:00 Calcium 7.2 mg/dL (8.6-10.8) L 10/03/16 05:00 Serum Total Protein 4.9 g/dL (6.0-8.3) L 09/27/16 05:04 Albumin 1.8 g/dL (3.5-5.0) L 09/27/16 05:04 Albumin/Globulin Ratio 0.6 (1.1-2.2) L 09/27/16 05:04 Ur Specific [place] > 1.030 (1.010-1.025) H 09/27/16 13:00 Urine Ketones Trace mg/dL (Negative) H 09/27/16 13:00 General appearance: Present: no acute distress Exam: sitting in chair - Head Head exam: Present: atraumatic, normal inspection - Eye Eye exam: Present: normal appearance. Absent: conjunctival injection, scleral icterus, sclera anicteric - Neck Neck exam: Present: normal inspection - Respiratory Respiratory exam: Absent: accessory muscle use, respiratory distress, stridor, wheezes - Extremities Exam Additional comments: right arm above the elbow amputation - Neurological Exam Neurological exam: Present: alert. Absent: facial droop, speech deficit - Psychiatric Psychiatric exam: Present: depressed - Skin Skin exam: Present: dry, warm. Absent: rash Palliative Quality Palliative Quality: Screen for Code Status: Yes, Screen for Goals of Care: Yes, Screen for Pain: Yes, If Pain Regimen Started, Initiate Bowel Regimen: Yes, Screen for Nausea/Vomitting: Yes - Labs CBC & Chem 7: 10/03/16 05:00 10/03/16 05:00 Labs: Laboratory Results - last 24 hr 10/03/16 10/03/16 05:00 05:00 WBC 1.9 L RBC 2.68 L Hgb 8.2 L Hct 24.9 L MCV 92.9 MCH 30.6 MCHC 32.9 RDW 17.8 H Plt Count 51 L MPV 10.3 Seg Neutrophils % 68.0 Band Neutrophils % 2.0 Lymphocytes % 16.0 Monocytes % 12.0 Basophils % 2.0 Neutrophils # 1.3 L Lymphocytes # 0.3 L Monocytes # 0.2 Basophils # 0.0 Platelet Estimate Decreased L Large Platelets Present A Anisocytosis 1+ A Microcytosis Present A Macrocytosis Present A Tear Drop Cells 1+ A Ovalocytes 1+ A Sodium 141 Potassium 3.6 Chloride 110 H Carbon Dioxide 27 BUN 5 L Creatinine 0.46 L Est GFR ( Amer) > 60 Est GFR (Non-Af Amer) > 60 BUN/Creatinine Ratio 11 Glucose 79 Calculated Osmolality 288 Calcium 7.2 L - ABG Interpretation ABG results: PT/INR, D-dimer PT 12.8 Seconds (9.4-12.1) H 09/26/16 14:04 Consult Discharge Plan - Plan Referrals: Sendy Mauro CNP [Primary Care Provider] - 10/09/16 9:00 am Prescriptions: Methadone 2.5 mg PO Q12HR #60 tablet Gabapentin [Neurontin] 600 mg PO TID #90 tablet Gabapentin [Neurontin] 400 mg PO TID #90 capsule HYDROmorphone [Dilaudid] 1 mg PO Q2H #120 tablet <Liban Hall - Last Filed: 10/03/16 12:55> Date of Encounter: 10/03/16 - Time Spent With Patient Total time spent is greater than 50% in coordination of care (as documented) at patient's floor/unit and/or counseling patient: - Constitutional Vitals: Abnormal lab results WBC 1.9 K/mcL (4.3-11.1) L 10/03/16 05:00 RBC 2.68 M/mcL (4.19-5.50) L 10/03/16 05:00 Hgb 8.2 g/dL (12.9-16.9) L 10/03/16 05:00 Hct 24.9 % (37.5-50.1) L 10/03/16 05:00 RDW 17.8 % (11.5-14.5) H 10/03/16 05:00 Plt Count 51 K/mcL (140-400) L 10/03/16 05:00 Neutrophils # 1.3 K/mcL (1.6-8.9) L 10/03/16 05:00 Lymphocytes # 0.3 K/mcL (0.6-4.6) L 10/03/16 05:00 Platelet Estimate Decreased (Normal) L 10/03/16 05:00 Large Platelets Present (Not Present) A 10/03/16 05:00 Anisocytosis 1+ (Not Present) A 10/03/16 05:00 Microcytosis Present (Not Present) A 10/03/16 05:00 Macrocytosis Present (Not Present) A 10/03/16 05:00 Tear Drop Cells 1+ (Not Present) A 10/03/16 05:00 Ovalocytes 1+ (Not Present) A 10/03/16 05:00 PT 12.8 Seconds (9.4-12.1) H 09/26/16 14:04 APTT 24.3 Seconds (26.0-36.0) L 09/26/16 14:04 Chloride 110 mEq/L (98-109) H 10/03/16 05:00 BUN 5 mg/dL (8-26) L 10/03/16 05:00 Creatinine 0.46 mg/dL (0.72-1.25) L 10/03/16 05:00 Calcium 7.2 mg/dL (8.6-10.8) L 10/03/16 05:00 Serum Total Protein 4.9 g/dL (6.0-8.3) L 09/27/16 05:04 Albumin 1.8 g/dL (3.5-5.0) L 09/27/16 05:04 Albumin/Globulin Ratio 0.6 (1.1-2.2) L 09/27/16 05:04 Ur Specific [place] > 1.030 (1.010-1.025) H 09/27/16 13:00 Urine Ketones Trace mg/dL (Negative) H 09/27/16 13:00 - Attending Attestation I examined this patient and my medical decision-making was reviewed with the CLAM DREDGE BOAT CAPTAIN/PA/Advanced Practice Nurse/Resident Physician. I agree with the documented findings, disposition and treatment plan as described except to the extent set forth below. - Labs CBC & Chem 7: 10/03/16 05:00 10/03/16 05:00 Labs: Laboratory Results - last 24 hr 10/03/16 10/03/16 05:00 05:00 WBC 1.9 L RBC 2.68 L Hgb 8.2 L Hct 24.9 L MCV 92.9 MCH 30.6 MCHC 32.9 RDW 17.8 H Plt Count 51 L MPV 10.3 Seg Neutrophils % 68.0 Band Neutrophils % 2.0 Lymphocytes % 16.0 Monocytes % 12.0 Basophils % 2.0 Neutrophils # 1.3 L Lymphocytes # 0.3 L Monocytes # 0.2 Basophils # 0.0 Platelet Estimate Decreased L Large Platelets Present A Anisocytosis 1+ A Microcytosis Present A Macrocytosis Present A Tear Drop Cells 1+ A Ovalocytes 1+ A Sodium 141 Potassium 3.6 Chloride 110 H Carbon Dioxide 27 BUN 5 L Creatinine 0.46 L Est GFR ( Amer) > 60 Est GFR (Non-Af Amer) > 60 BUN/Creatinine Ratio 11 Glucose 79 Calculated Osmolality 288 Calcium 7.2 L - ABG Interpretation ABG results: PT/INR, D-dimer PT 12.8 Seconds (9.4-12.1) H 09/26/16 14:04
[2016-10-03] MEDS: *HR* LORazepam 1 MG TABLET PO SCH (09:38)
[2016-10-03] MEDS: Gabapentin 300 MG CAPSULE PO SCH ×3 (09:38→21:12)
[2016-10-03] MEDS: Magnesium Oxide 400 MG TABLET PO SCH (09:38)
[2016-10-03] MEDS: Gabapentin 400 MG CAPSULE PO SCH ×3 (09:38→21:12)
[2016-10-03] MEDS: *HR* Methadone 5 MG TABLET PO SCH ×2 (09:39→21:12)
[2016-10-03] MEDS ORDERED: *HR* HYDROmorphone (PF) 1 MG/ML SYRINGE IVP PRN (11:41)
[2016-10-03] MEDS: *HR* HYDROmorphone 2 MG TABLET PO PRN (17:09)
--- NOTE | 2016-10-03 17:10 | Internal Med Progress Note ---
Date of Encounter: 10/03/16 Time of Encounter: 10:00 - Assessment and plan (1) Cancer associated pain Current Visit: Yes Status: Acute Assessment and plan: Acute on chronic, from the right upper extremity metastasis to the proximal radius. He was evaluated at [facility] on 09/17/2016- Dr. Fuentes. He recommended amputation of right upper extremity for pain control s/p R arm above elbow amputation. 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 (4) DVT prophylaxis Current Visit: Yes Status: Acute Assessment and plan: EPCD. Heparin is not placed that because of low platelet level. - Time Spent With Patient 25 - 35 minutes - Subjective Interval history: Patient is a 70-year-old male admitted for severe cancer associated pain on right arm. His past medical history is significant for lung cancer with bone metastasis, hypertension. Patient had right arm above elbow amputation. I saw and examined the patient today. day 6 s/p amputation. Arm pain is much less than before. On by mouth gabapentin and methadone, plus hydromorphone DIE MAKER BENCH STAMPING. Palliativ care consult appreciated, plan is try to switch DIE MAKER BENCH STAMPING to by mouth pain medication and discharge patient to home with home health. - Constitutional Vitals: Temp Pulse Resp BP Pulse Ox 98.0 F 72 18 118/71 95 10/03/16 15:43 10/03/16 15:48 10/03/16 15:43 10/03/16 15:43 10/03/16 15:43 General appearance: Present: mild distress, A&O X 3, pleasant - Head Head exam: Present: atraumatic, normocephalic - Eye Eye exam: Present: PERRL, conjuntiva pink, sclera anicteric Pupils: Present: PERRL - Neck Neck exam general surgery: Present: supple, trachea midline. Absent: lymphadenopathy - Respiratory Respiratory exam: Present: CTAB. Absent: accessory muscle use, rales, rhonchi, wheezes - Cardiovascular Cardiovascular exam: Present: RRR, +S1, +S2. Absent: diastolic murmur, gallop, rubs, systolic murmur - GI/Abdominal GI/Abdominal exam: Present: normal bowel sounds, soft, no peritoneal signs. Absent: distended, tenderness - Extremities Exam Extremities exam: Present: warm, radial pulses palpable and symetrical. Absent : calf tenderness, cyanotic, pedal edema Additional comments: Right arm above elbow amputation - Neurological Exam Neurological exam: Present: CN II-XII intact, oriented X3, no focal deficits. Absent: pronater drift, facial droop, speech deficit - Skin Skin exam: Present: dry, intact Internal Medicine: Result - Labs CBC & Chem 7: 10/03/16 05:00 10/03/16 05:00 Labs: Short CBC 10/03/16 Range/Units 05:00 WBC 1.9 L (4.3-11.1) K/mcL Hgb 8.2 L (12.9-16.9) g/dL Hct 24.9 L (37.5-50.1) % Plt Count 51 L (140-400) K/mcL Neutrophils # 1.3 L (1.6-8.9) K/mcL BMP 10/03/16 05:00 Sodium 141 Potassium 3.6 Chloride 110 H Carbon Dioxide 27 BUN 5 L Creatinine 0.46 L Glucose 79 Calcium 7.2 L - ABG Interpretation ABG results: PT/INR, D-dimer PT 12.8 Seconds (9.4-12.1) H 09/26/16 14:04 - VTE Documentation of Mechanical Device: Intermittent pneumatic compression device Consult Discharge Plan - Plan Referrals: Sendy Mauro CNP [Primary Care Provider] - 10/09/16 9:00 am Prescriptions: Methadone 2.5 mg PO Q12HR #60 tablet Gabapentin [Neurontin] 600 mg PO TID #90 tablet Gabapentin [Neurontin] 400 mg PO TID #90 capsule HYDROmorphone [Dilaudid] 1 mg PO Q2H #120 tablet
--- NOTE | 2016-10-03 20:42 | Orthopedics Progress Note ---
Date of Encounter: 10/03/16 Time of Encounter: 20:40 Subjective Principal diagnosis: Metastatic lesion right arm Interval history: 09/29/2016. Patient is postop day #1 from right above elbow amputation. Patient had significant pain postop requiring a breakthrough nerve block by anesthesia as well as dosing with ketamine. Patient has been seen by palliative care with methadone added to his pain management protocol. At this time the patient is resting comfortably and is sleeping. I had an extended discussion with his daughter regarding his postop course. He initially appeared to have some questionable phantom pain though it appears that this now may really be postoperative pain from the amputation itself. Vital signs are stable, patient is afebrile. Dressings show only minor serosanguineous drainage along the medial aspect of the stump. Hemoglobin is 6.3. White blood cell count is 3.9. Platelets are relatively stable at 79. Impression: POD #1 right above elbow amputation for palliative treatment of metastatic lesion Recommendation: Continue with pain management per medicine. We will evaluate surgical incision in 24 hours. We will try to elevate stump if possible. 09/30/2016. Patient is postop day 2 from right above elbow amputation. Pain has improved significantly over the past 24 hours. It is unsure if this is related to his change in medications or the amputation itself. Patient is resting comfortably at this time but awakens. Vital signs are stable. He is afebrile. Dressings were taken down. There is only some serosanguineous drainage. This skin edges are all healthy and viable. Edema appears to be somewhat improved proximally. Impression: POD #2 right above elbow amputation Recommendation: Dressing change was completed today. I will perform any dressing changes. A stump wrap type resting was applied with Evelio wrap today. Patient can move stump as able. Orthopedic status is stable. 10/01/2016. Patient postop day #3 right above elbow amputation. He has made significant strides in pain management and control. He is being weaned off medications. He clinically appears much more comfortable. Vital signs are stable he is afebrile. Hemoglobin is 8.6. White cell count is 3.1 platelets are 65. Dressing is clean dry and intact. Pain is elicited with compression or palpation of the stump. He is moving his shoulder. Impression: POD #3 right above elbow amputation Recommendation: Change dressings tomorrow. Encourage patient to use an move shoulder and arm as tolerated. Orthopedic status is stable. If patient is to be discharged soon we will just need to follow up with me in about the 2 week's time for wound evaluation and clip removal. Discuss his findings at length with the patient and were very pleased with the success of the surgery thus far. 10/02/2016. Patient is postop day #4 right above elbow amputation. He continues to improve daily. He appears much less anxious and much more comfortable. He is using his shoulder of much easier. Vital signs remained stable he is afebrile. Hemoglobin is relatively stable at 8.2. White cell count has dropped a bit to 2.0. Platelets also had dropped to 48. Clinically there is no signs of bleeding from his amputation site. Skin edges are viable. Edema has decreased significantly in the past 48 hours. Impression: POD #4 right above elbow amputation Recommendation: Dressing change performed today. Predominantly using Evelio wrap as a stump staffing associate. I instructed the patient to do desensitizing manipulation of the stump with his left arm and continue to work his shoulder. Orthopedic status remains stable. 10/03/2016. Patient postop day #5 right above elbow amputation. He is sleeping comfortably. I spoke at length with his . She states that he is feeling and doing much better. He is off the REVIVAL CLERK and exclusively on by mouth pain medications. No signs are stable he is afebrile. Dressings dry. Hemoglobin stable. White count relatively stable at 2.0. Impression: POD #5 right above elbow amputation Recommendation: No significant wound care required. Evelio wrap is used as a stump staffing associate. I will be in contact with the prosthesis to see about a formal stump staffing associate for his amputation site. If patient goes home before I am able to see him tomorrow, will need follow-up with me in roughly 12-14 days. Objective Vital signs: Vital Signs Temp Pulse Resp BP Pulse Ox 10/03/16 15:48 72 10/03/16 15:43 98.0 F 76 18 118/71 95 10/03/16 11:20 98.1 F 70 16 123/65 97 10/03/16 09:25 77 98 10/03/16 08:06 98.1 F 88 17 146/82 95 10/03/16 04:27 98.5 F 89 17 99/50 97 10/03/16 00:15 97.8 F 77 18 135/79 95 Intake and Output 10/03/16 10/03/16 10/03/16 07:59 15:59 23:59 Intake Total 480 / 480 Output Total 150 / 150 375 / 375 Balance -150 / -150 105 / 105 Intake: Oral 480 / 480 Output: Urine 150 / 150 375 / 375 Other: Meal Lunch Percent of Meal Consumed 10% Weight 61.7 kg Patient Weight 10/03/16 23:59 Weight 61.7 kg - Labs CBC & BMP: 10/03/16 05:00 10/03/16 05:00 Labs: Abnormal lab results WBC 1.9 K/mcL (4.3-11.1) L 10/03/16 05:00 RBC 2.68 M/mcL (4.19-5.50) L 10/03/16 05:00 Hgb 8.2 g/dL (12.9-16.9) L 10/03/16 05:00 Hct 24.9 % (37.5-50.1) L 10/03/16 05:00 RDW 17.8 % (11.5-14.5) H 10/03/16 05:00 Plt Count 51 K/mcL (140-400) L 10/03/16 05:00 Neutrophils # 1.3 K/mcL (1.6-8.9) L 10/03/16 05:00 Lymphocytes # 0.3 K/mcL (0.6-4.6) L 10/03/16 05:00 Platelet Estimate Decreased (Normal) L 10/03/16 05:00 Large Platelets Present (Not Present) A 10/03/16 05:00 Anisocytosis 1+ (Not Present) A 10/03/16 05:00 Microcytosis Present (Not Present) A 10/03/16 05:00 Macrocytosis Present (Not Present) A 10/03/16 05:00 Tear Drop Cells 1+ (Not Present) A 10/03/16 05:00 Ovalocytes 1+ (Not Present) A 10/03/16 05:00 PT 12.8 Seconds (9.4-12.1) H 09/26/16 14:04 APTT 24.3 Seconds (26.0-36.0) L 09/26/16 14:04 Chloride 110 mEq/L (98-109) H 10/03/16 05:00 BUN 5 mg/dL (8-26) L 10/03/16 05:00 Creatinine 0.46 mg/dL (0.72-1.25) L 10/03/16 05:00 Calcium 7.2 mg/dL (8.6-10.8) L 10/03/16 05:00 Serum Total Protein 4.9 g/dL (6.0-8.3) L 09/27/16 05:04 Albumin 1.8 g/dL (3.5-5.0) L 09/27/16 05:04 Albumin/Globulin Ratio 0.6 (1.1-2.2) L 09/27/16 05:04 Ur Specific [place] > 1.030 (1.010-1.025) H 09/27/16 13:00 Urine Ketones Trace mg/dL (Negative) H 09/27/16 13:00 - VTE Documentation of Mechanical Device: Intermittent pneumatic compression device Consult Discharge Plan - Plan Referrals: Sendy Mauro, LABORATORY ANIMAL CARETAKER [Primary Care Provider] - 10/09/16 9:00 am Prescriptions: Methadone 2.5 mg PO Q12HR #60 tablet Gabapentin [Neurontin] 600 mg PO TID #90 tablet Gabapentin [Neurontin] 400 mg PO TID #90 capsule HYDROmorphone [Dilaudid] 1 mg PO Q2H #120 tablet
[2016-10-04] MEDS: Magnesium Oxide 400 MG TABLET PO SCH (08:22)
[2016-10-04] MEDS: Gabapentin 400 MG CAPSULE PO SCH (08:22)
[2016-10-04] MEDS: *HR* LORazepam 1 MG TABLET PO SCH (08:22)
[2016-10-04] MEDS: Gabapentin 300 MG CAPSULE PO SCH (08:22)
[2016-10-04 10:50] VITALS: BP 125/59
--- NOTE | 2016-10-04 10:54 | Event Note ---
Date of Encounter: 10/04/16 Time of Encounter: 10:45 Patient is sleeping quietly, at bedside. She stated he is very comfortable other than "tired of being in bed". Has only utilized 1 dose of Hydromorphone for breakthrough pain in the last 24 hours. Did have increase in temp to 100 this am. Will continue current pain medication regimen and continue to monitor while in hospital. Prescriptions for pain medications are in discharge folder.
--- NOTE | 2016-10-04 11:38 | Discharge Summary ---
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 (3) Constipation due to opioid therapy Priority: Secondary Status: Resolved (4) DVT prophylaxis Priority: Secondary Status: Acute - Discharge Medications Prescriptions: Methadone 2.5 mg PO Q12HR #60 tablet Gabapentin [Neurontin] 600 mg PO TID #90 tablet Gabapentin [Neurontin] 400 mg PO TID #90 capsule HYDROmorphone [Dilaudid] 1 mg PO Q2H #120 tablet Home Medications: Polyethylene Glycol 3350 [MiraLAX Powder Bulk 17.9 Oz] 1 scoop PO Q48H PRN 05/08 [History] Dexamethasone [Decadron] 8 mg PO AD #60 tab 05/21/16 [Rx] Prochlorperazine Maleate [Compazine] 10 mg PO Q6HR PRN #60 tablet 05/21/16 [Rx] Lidocaine/Prilocaine CREAM [Emla] 1 appl TP AD #1 tube 06/05/16 [Rx] Calcium Carb/Vitamin D3/Vit K1 [Calcium + D Soft Chewable Tab] 2 each PO DAILY # 60 tab.chew 06/06/16 [Rx] Acetaminophen [Tylenol] 325 mg PO Q4-6H PRN 09/26/16 [History] Furosemide [Lasix] 20 mg PO DAILY PRN 09/26/16 [History] Gabapentin [Neurontin] 800 mg PO TID 09/26/16 [History] LORazepam [Ativan] 1 mg PO DAILY 09/26/16 [History] Magnesium Oxide [Magnesium] 400 mg PO DAILY 09/26/16 [History] Oxycodone HCl 15 mg PO Q4-6H PRN 09/26/16 [History] Potassium Chloride [Klor-Con 10] 10 meq PO DAILY PRN 09/26/16 [History] Sertraline [Zoloft] 50 mg PO QAM 09/26/16 [History] Gabapentin [Neurontin] 400 mg PO TID #90 capsule 10/03/16 [Rx] Gabapentin [Neurontin] 600 mg PO TID #90 tablet 10/03/16 [Rx] HYDROmorphone [Dilaudid] 1 mg PO Q2H #120 tablet 10/03/16 [Rx] Methadone 2.5 mg PO Q12HR #60 tablet 10/03/16 [Rx] Allergies/Adverse Reactions: Allergies morphine Adverse Reaction (Verified 06/17/16 13:06) Confusion - Notes to Outpatient Provider Please add continue by mouth pain medication per palliative care recommendation Date of admission: 09/27/16 15:01 Primary care physician: Sendy Mauro CNP Consults: 09/28/16 17:36 Consult to Invasive Line Access Team [CONS] Routine Reason for Consult: need iv access Line Type: EPIV 09/29/16 08:10 Consult to Palliative Care [CONS] Routine Comment: Consulting Provider: Palliative Care Tammy 09/30/16 10:10 Consult to Occupational Therapy [CONS] Routine Comment: Evaluate, develop and implement POC Consult to Physical Therapy [CONS] Routine Comment: Evaluate, develop and implement POC Discharging clinician: Elzbieta Zheng Anticipated date of discharge: 10/04/16 - Patient Status Disposition: Home Health Service Condition: Fair Functional capacity at discharge: uses cane/walker Overall status at discharge: patient is progressing back to baseline - Discharge Instructions Follow Up With: Sendy Mauro CNP [Primary Care Provider] - 10/09/16 9:00 am - Diet and Activity Activity: as per physical therapy Diet: regular diet Interval History: Mr. Selby is a 70 year old male who presents from the ED with chief complaint of altered mental status. Patient's information taken from caregiver and due to patient being non-contributory. Patient is in stage IV lung cancer which has metastasized to multiple sites in his body. Patient currently has one more round of chemotherapy left in treatment. Patient has received radiation and chemotherapy. Cancer has also metastasized to his right arm which is erythematous, edematous, and painful. Patient's head CT shows no acute intracranial or mass. CXR shows acute airspace disease or enlargement of mass cannot be excluded. No pleural effusion or overt pulmonary edema. CT of chest may be recommended. Hospital course: Mr. 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 Patient had above elbow amputation. Palliative consult was called for pain management. 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 His pain is not well controlled. We will discharge patient home with by mouth pain medication, continue follow-up with oncology and orthopedic as outpatient. I saw and examined the patient today. His pain is much less and well controlled with by mouth medication. Vitals are stable. Mild fever, no cough no shortness of breath, no increased pain on wound. Temperature gets down lately. Will discharge patient home with home health and continue follow-up as outpatient. - Time Spent with Patient Total time spent providing and/or coordinating discharge services: Greater than 30 minutes - Constitutional Vitals: Temp Pulse Resp BP Pulse Ox 99.7 F H 72 22 125/59 88 10/04/16 10:41 10/04/16 10:41 10/04/16 10:41 10/04/16 10:41 10/04/16 10:45 General appearance: Present: mild distress, A&O X 3, pleasant - Head Head exam: Present: atraumatic, normocephalic - Eye Eye exam: Present: PERRL, conjuntiva pink, sclera anicteric Pupils: Present: PERRL - Neck Neck exam general surgery: Present: supple, trachea midline. Absent: lymphadenopathy - Respiratory Respiratory exam: Present: CTAB. Absent: accessory muscle use, rales, rhonchi, wheezes - Cardiovascular Cardiovascular exam: Present: RRR, +S1, +S2. Absent: diastolic murmur, gallop, rubs, systolic murmur - GI/Abdominal GI/Abdominal exam: Present: normal bowel sounds, soft, no peritoneal signs. Absent: distended, tenderness - Extremities Exam Extremities exam: Present: warm, radial pulses palpable and symetrical. Absent : calf tenderness, cyanotic, pedal edema Additional comments: Rt arm above elbow amputation - Neurological Exam Neurological exam: Present: CN II-XII intact, oriented X3, no focal deficits. Absent: pronater drift, facial droop, speech deficit - Skin Skin exam: Present: dry, intact - VTE Documentation of Mechanical Device: Intermittent pneumatic compression device
--- NOTE | 2016-10-04 11:53 | Physician Discharge Referral ---
Home Health/Hosp Referral Info Transfer to: Home Health Provider in Charge Post Discharge: PCP - Diagnosis (1) Cancer associated pain Priority: Primary Status: Acute (2) Squamous cell carcinoma of left lung Status: Chronic (3) Constipation due to opioid therapy Priority: Secondary Status: Resolved (4) DVT prophylaxis Priority: Secondary Status: Acute - Respiratory Orders Oxygen / L per min (2) Smoking Cessation: Smoking cessation has been advised. For more information, call the [place] Tobacco Quit Line at 6-579-KGPZ-NOW. - Diet/Nutrition Diet/Nutrition Orders: Regular - Services Needed Following services are medically necessary services: Nursing, Home Health Aide, Physical Therapy, Occupational Therapy - Transfer Medications Prescriptions: Methadone 2.5 mg PO Q12HR #60 tablet Gabapentin [Neurontin] 600 mg PO TID #90 tablet Gabapentin [Neurontin] 400 mg PO TID #90 capsule HYDROmorphone [Dilaudid] 1 mg PO Q2H #120 tablet Home Medications: Polyethylene Glycol 3350 [MiraLAX Powder Bulk 17.9 Oz] 1 scoop PO Q48H PRN 05/08 [History] Dexamethasone [Decadron] 8 mg PO AD #60 tab 05/21/16 [Rx] Prochlorperazine Maleate [Compazine] 10 mg PO Q6HR PRN #60 tablet 05/21/16 [Rx] Lidocaine/Prilocaine CREAM [Emla] 1 appl TP AD #1 tube 06/05/16 [Rx] Calcium Carb/Vitamin D3/Vit K1 [Calcium + D Soft Chewable Tab] 2 each PO DAILY # 60 tab.chew 06/06/16 [Rx] Acetaminophen [Tylenol] 325 mg PO Q4-6H PRN 09/26/16 [History] Furosemide [Lasix] 20 mg PO DAILY PRN 09/26/16 [History] Gabapentin [Neurontin] 800 mg PO TID 09/26/16 [History] LORazepam [Ativan] 1 mg PO DAILY 09/26/16 [History] Magnesium Oxide [Magnesium] 400 mg PO DAILY 09/26/16 [History] Oxycodone HCl 15 mg PO Q4-6H PRN 09/26/16 [History] Potassium Chloride [Klor-Con 10] 10 meq PO DAILY PRN 09/26/16 [History] Sertraline [Zoloft] 50 mg PO QAM 09/26/16 [History] Gabapentin [Neurontin] 400 mg PO TID #90 capsule 10/03/16 [Rx] Gabapentin [Neurontin] 600 mg PO TID #90 tablet 10/03/16 [Rx] HYDROmorphone [Dilaudid] 1 mg PO Q2H #120 tablet 10/03/16 [Rx] Methadone 2.5 mg PO Q12HR #60 tablet 10/03/16 [Rx] Allergies/Adverse Reactions: Allergies morphine Adverse Reaction (Verified 06/17/16 13:06) Confusion Certification: Further, I certify that my clinical findings support that this patient is homebound (i.e. absences from home require considerable and taxing effort and are for medical reasons or yarsanism services or infrequently or short duration when for other reasons) because: Homebound Reason: Patient requires assistance of a person or device to safely leave home Attestation: My signature below is to certify that this patient is under my care and that I, or nurse practitioner, or a physician's marketing support assistant working with me, has a face-to -face encounter with this patient.
[2016-10-04] MEDS: *HR* Methadone 5 MG TABLET PO SCH (12:50)
[2016-10-04] MEDS: *HR* HYDROmorphone 2 MG TABLET PO PRN (13:12)
--- NOTE | 2016-10-04 19:33 | Oncology Inp Progress Note ---
Date of Encounter: 10/03/16 Time of Encounter: 19:31 (1) Cancer associated pain Status: Acute Assessment and plan: Post right above elbow habitation. His pain is under better control. On methadone and Neurontin . 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 Completing cycle 6 of [address] chest with contrast 09/26/2016 showed a new 3 cm x 4 cm mass which is just above the cavitary mass and this is new since June 2016 cavitary masses stable at 3 cm. There is also a 2 cm right hilar lymph node which has developed since last scan Enlarging tissue metastasis right posterior paraspinal subcutaneous area 3 cm increased from 1.[address] abdomen and pelvis same time showed decrease in the right adrenal mass stable lytic lesion right iliac bone and right femur otherwise abdomen negative His next generation sequencing showed no actionable mutations. EGFR and ALK negative. He failed immune checkpoint inhibitor Once he is better from his amputation we will consider palliative radiation to the right chest paraspinal subcutaneous nodule The response to second line chemotherapy is not great. May consider single agent Gemzar in the future as clinically indicated. Also may add Ramucirumab (3) Anemia Status: Acute Assessment and plan: Had few transfusions during this admission. Hemoglobin is currently stable around 8. I expect that to improve Also thrombocytopenia platelet count around 50,000. Should improve within a week Qualifiers: Anemia type: other cause Other causes of anemia: antineoplastic chemotherapy Qualified Code(s): D64.81 - Anemia due to antineoplastic chemotherapy Oncology: Subj Interval history: Sleeping comfortably. Pain has improved considerably. No bleeding. Mild decrease in platelet count 50,000 and neutrophils 1300 both stable and this is secondary to chemotherapy last week - Constitutional Vitals: Vital Signs Temp Pulse Resp BP Pulse Ox 10/04/16 12:46 74 10/04/16 10:45 88 10/04/16 10:41 99.7 F H 72 22 125/59 94 10/04/16 08:10 78 10/04/16 07:57 100.0 F H 95 18 121/55 93 10/04/16 03:50 97.8 F 73 73 122/68 94 10/03/16 23:56 97.8 F 72 16 121/58 94 10/03/16 21:05 70 04/27/17 21:00 98.6 F 70 16 117/68 94 Intake and Output 10/04/16 10/04/16 10/04/16 07:59 15:59 23:59 Intake Total 360 / 360 Balance 360 / 360 Intake: Oral 360 / 360 Other: Meal Lunch Percent of Meal Consumed 5% # Voids 1 Exam: CVS S1-S2 heard regular rate rhythm Lungs air entry good both bases Extremity no major edema lower extremities Right amputation stump no bleeding Abdomen soft bowel sounds present nontender Oncology: Obj Data - Labs CBC & Chem 7: 10/03/16 05:00 10/03/16 05:00 - ABG Interpretation ABG results: PT/INR, D-dimer PT 12.8 Seconds (9.4-12.1) H 09/26/16 14:04 Consult Discharge Plan - Plan Instructions: Hydromorphone (By mouth), Gabapentin (By mouth), Methadone (By mouth), Above the Knee Amputation (DC), Anemia (GEN) Referrals: KASSANDRA FIGUEROA [Other] - 10/08/16 11:00 am Antionette Issa MD [Partnered Physician] - 10/25/16 2:30 pm Sendy Mauro CNP [Primary Care Provider] - 10/09/16 9:00 am Claudio Myers DO [Partnered Physician] - 10/17/16 1:15 pm Prescriptions: Methadone 2.5 mg PO Q12HR #60 tablet Gabapentin [Neurontin] 600 mg PO TID #90 tablet Gabapentin [Neurontin] 400 mg PO TID #90 capsule HYDROmorphone [Dilaudid] 1 mg PO Q2H #120 tablet
== END 2016-10-04 14:56 | disposition home health service (06) | DRG 475 ==
LOC: EMEROO 13:14 → 2ANU 13:14 → SUATTDRO 09-27 15:01 → 2NNU 09-28 22:04
PROVIDERS: ADMIT Hospitalist; ATTEND Internal Medicine